=== PATIENT | female | born 1955 | race Caucasian/White ===

== ENCOUNTER 2019-06-10 08:47 | Outpatient (CLI) | payer MEDICARE, OTHER ==
[2019-06-10] MEDS ORDERED: ISOVUE-370 76%-LOCM 1 ML ONE (10:48)
--- NOTE | 2019-06-10 12:23 | CT ---
CT OF THE ABDOMEN WITH IV AND ENTERIC CONTRAST: INDICATION: Constipation and bloating. CONTRAST: 70 cc of Isovue 370. COMPARISON: None. FINDINGS: There is a calcified granuloma in the right lower lobe. There is bibasilar subsegmental volume loss. The gallbladder is surgically absent. No focal hepatic lesion is evident. The spleen, pancreas, a nd adrenal glands are normal appearing. There is a 2.1 cm cyst involving the superior pole left kidney. There are other small hypodensities within both kidneys that are difficult to further characterize due to their size but statistically is likely reflective of cyst. There are moderate calcifications involving the abdominal aorta. No lymphadenopathy is evident. The re is a mild to moderate amount of retained stool within the colon. There is scattered degenerative and osteoarthritic change. There is postsurgical change within the upper abdomen consistent with a p rior hernia repair. IMPRESSION: 1. Moderate amount of retained stool within the colon. 2. Bilateral renal cysts. 3. Cholecystectomy. 4. Findings of prior granulomatous disease. POS: OFF
== END 2019-06-10 08:48 | disposition home or self-care (01) ==
LOC: BICCT 08:47
PROVIDERS: ATTEND Internal Medicine
DX: K59.00 Constipation, unspecified (principal); R10.84 Generalized abdominal pain; N28.1 Cyst of kidney, acquired; Z90.49 Acquired absence of other specified parts of digestive tract
CPT/HCPCS: 74160; Q9966

== ENCOUNTER 2019-06-18 09:01 | Outpatient (CLI) | payer MEDICARE, OTHER ==
--- NOTE | 2019-06-25 16:28 | MMO ---
Bilateral MAMMO Bilat Screen [facility]. CLINICAL HISTORY: Patient is 63 years old and is seen for screening. The patient has no family history of breast cancer. The patient has no personal history of cancer. VIEWS: The views performed were: bilateral craniocaudal with tomosynthesis; bilateral mediolateral oblique with tomosynthesis; and left mediolateral oblique. FILMS COMPARED: The present examination has been compared to prior imaging studies performed at [facility] on 12/19/2013 and 02/25/2015. This study has been interpreted with the assistance of computer-aided detection. MAMMOGRAM FINDINGS: The breasts are almost entirely fat. There are stable benign appearing calcifications seen in both breasts. There are no suspicious masses, suspicious calcifications, or new areas of architectural distortion. IMPRESSION: THERE IS NO MAMMOGRAPHIC EVIDENCE OF MALIGNANCY. A ROUTINE FOLLOW-UP MAMMOGRAM IN 1 YEAR IS RECOMMENDED. THE RESULTS OF THIS EXAM WERE SENT TO THE PATIENT. ACR BI-RADS Category 2 - Benign finding MAMMOGRAPHY NOTE: 1. A negative mammogram report should not delay a biopsy if a dominant of clinically suspicious mass is present. 2. Approximately 10% to 15% of breast cancers are not detected by mammography. 3. Adenosis and dense breasts may obscure an underlying neoplasm. Reported by: ALEENA NORTH MD Electonically Signed: [id number]
== END 2019-06-18 09:02 | disposition home or self-care (01) ==
LOC: BICMAMMO 09:01
PROVIDERS: ATTEND Family Medicine
DX: Z12.31 Encounter for screening mammogram for malignant neoplasm of breast (principal)
CPT/HCPCS: 77063; 77067

== ENCOUNTER 2019-06-21 08:15 | Outpatient (CLI) | payer MEDICARE, MEDICAID ==
[2019-06-21] MEDS ORDERED: GASTROGRAFIN 30 ML BOT ONE (12:08)
--- NOTE | 2019-06-21 13:01 | RAD ---
EXAM: Small bowel exam: Patient was given barium orally. Sequential images of abdomen obtained. Spot images of the terminal i leum obtained. INDICATIONS: Abdominal pain. Constipation. COMPARISON: None. FINDINGS: [place] [employer] film shows increased small bowel gas with mild small bowel distention which appears n onspecific. After contrast administration orally, 15 minute film shows opacification of the proximal jejunum. Fol d pattern appears normal. Ileal loops are opacified at 45 minutes and show mild nonspecific distention. Fold pattern appears normal. Distal ileum is opacified at 2 hours. Contrast reaches the c olon by 2 1/2 hours. Terminal ileum appears unremarkable. IMPRESSION: Nonspecific small bowel distention. Small bowel fold pattern appears normal. Transit time is 2 to 2 1/2 hours.
== END 2019-06-21 08:16 | disposition home or self-care (01) ==
LOC: RAD 08:15
PROVIDERS: ATTEND Internal Medicine
DX: K59.09 Other constipation (principal); R10.84 Generalized abdominal pain; K63.89 Other specified diseases of intestine
CPT/HCPCS: 74250; Q9963

== ENCOUNTER 2019-07-15 09:32 | Outpatient (CLI) | payer MEDICARE, MEDICAID ==
--- NOTE | 2019-07-15 10:35 | RAD ---
Exam: 1 view abdomen HISTORY: Colonic motility study FINDINGS: There are air-filled mildly prominent loops of small bowel. Scattered fecal material in a n ondistended, nondilated colon. Suture chain in the epigastric region. Multiple Sitzmarks markers are noted and appear to be clumped within the stomach. IMPRESSION: Multiple Sitzmarks markers clumped in the stomach.
== END 2019-07-15 09:33 | disposition home or self-care (01) ==
LOC: RAD 09:32
PROVIDERS: ATTEND Internal Medicine
DX: K59.09 Other constipation (principal)
CPT/HCPCS: 74018

== ENCOUNTER 2019-07-17 10:30 | Outpatient (CLI) | payer MEDICARE, MEDICAID ==
--- NOTE | 2019-07-17 12:09 | RAD ---
SUPINE ABDOMEN: Date: 07/17/19 INDICATION: Colonic motility study. Sitz marker examination. Day 3. Comparison made to exam of 07/15/19. At that time, sitz markers were all grouped together in the epig astric region, presumably within the stomach. FINDINGS/IMPRESSION: There is diffuse gaseous distention of the small bowel today. Scattered gas is also seen in the colon . There are 10 sits markers which are located in the left lower quadrant region and these could reside in the left colon. There are 3 sitz markers that overlie the upper pelvis. These could reside in eith er small bowel or sigmoid colon. POS: [facility]
== END 2019-07-17 10:31 | disposition home or self-care (01) ==
LOC: RAD 10:30
PROVIDERS: ATTEND Internal Medicine
DX: K59.09 Other constipation (principal); R14.0 Abdominal distension (gaseous)
CPT/HCPCS: 74018

== ENCOUNTER 2020-02-11 20:55 | Emergency (ER) | payer MEDICARE, OTHER ==
[2020-02-11 21:37] LABS: Bilirubin Negative (Negative); Blood, Urine 2+ (Negative); Glucose, Urine (Dipstick) Normal (Negative); Leukocyte 250 Leu/uL (Negative); Nitrite Negative (Negative); Protein, Urine (Dipstick) 20 mg/dL (Neg-Trace); RBC/HPF Greater than 50 HPF (0-3); Squamous Epithelial None Seen HPF (0-3); Urobilinogen Normal mg/dL (Less than 2)
[2020-02-11 21:44] LABS: Bacteria/HPF 1+ HPF (None Seen)
[2020-02-11 21:45] LABS: Clarity Hazy (Clear)
== END 2020-02-11 22:32 | disposition home or self-care (01) ==
LOC: ERS 20:55
DX: N30.01 Acute cystitis with hematuria (principal); J44.9 Chronic obstructive pulmonary disease, unspecified; K21.9 Gastro-esophageal reflux disease without esophagitis; E03.9 Hypothyroidism, unspecified; E78.5 Hyperlipidemia, unspecified; E11.22 Type 2 diabetes mellitus with diabetic chronic kidney disease; N18.3 Chronic kidney disease, stage 3 (moderate); F41.9 Anxiety disorder, unspecified; F32.9 Major depressive disorder, single episode, unspecified; F17.210 Nicotine dependence, cigarettes, uncomplicated; Z95.0 Presence of cardiac pacemaker
CPT/HCPCS: 81003; 81015; 99284

== ENCOUNTER 2020-05-28 12:49 | Outpatient (CLI) | payer MEDICARE, OTHER ==
--- NOTE | 2020-05-28 13:38 | RAD ---
2 view chest: [05/28/2020] Comparison:08/05/2017 HISTORY: Shortness of breath FINDINGS: Stable dual lead transvenous pacing device. Heart and mediastinal contours are stable. No p neumothorax, pleural fluid, focal consolidation, or alveolar edema. Multilevel mid thoracic spine disc space narrowing and anterior osteophyte formation. IMPRESSION: No acute findings-stable appearance of the chest.
== END 2020-05-28 12:50 | disposition home or self-care (01) ==
LOC: BICRAD 12:49
PROVIDERS: ATTEND Internal Medicine Critical Care Medicine
DX: R06.00 Dyspnea, unspecified (principal)
CPT/HCPCS: 71046

== ENCOUNTER 2020-06-22 07:49 | Outpatient (CLI) | payer MEDICARE, OTHER ==
--- NOTE | 2020-06-22 08:24 | MMO ---
Bilateral MAMMO Bilat Screen [facility]. CLINICAL HISTORY: Patient is 64 years old and is seen for screening. The patient has no family history of breast cancer. The patient has no personal history of cancer. The patient has a history of Breast reduction in 1989. VIEWS: The views performed were: bilateral craniocaudal with tomosynthesis and bilateral mediolateral oblique with tomosynthesis. FILMS COMPARED: The present examination has been compared to prior imaging studies performed at [facility] on 06/18/2019, and at [facility] on 12/19/2013 and 02/25/2015. This study has been interpreted with the assistance of computer-aided detection. MAMMOGRAM FINDINGS: The breasts are almost entirely fat. Benign calcifications are noted bilaterally. There are no suspicious masses, suspicious calcifications, or new areas of architectural distortion. IMPRESSION: THERE IS NO MAMMOGRAPHIC EVIDENCE OF MALIGNANCY. A ROUTINE FOLLOW-UP MAMMOGRAM IN 1 YEAR IS RECOMMENDED. THE RESULTS OF THIS EXAM WERE SENT TO THE PATIENT. ACR BI-RADS Category 2 - Benign finding MAMMOGRAPHY NOTE: 1. A negative mammogram report should not delay a biopsy if a dominant of clinically suspicious mass is present. 2. Approximately 10% to 15% of breast cancers are not detected by mammography. 3. Adenosis and dense breasts may obscure an underlying neoplasm. Reported by: CONNIE CONN MD Electonically Signed: [id number]
== END 2020-06-22 07:50 | disposition home or self-care (01) ==
LOC: BICMAMMO 07:49
PROVIDERS: ATTEND Family Medicine
DX: Z12.31 Encounter for screening mammogram for malignant neoplasm of breast (principal); Z98.82 Breast implant status
CPT/HCPCS: 77063; 77067

== ENCOUNTER 2020-07-05 12:04 | Inpatient (IN) | payer MEDICARE, OTHER ==
[2020-07-05] MEDS ORDERED: HumaLOG 300 UNITS/3 ML VIAL SC PRN (13:48)
[2020-07-05] MEDS ORDERED: Dextrose 5% in Water 1,000 ML IV PRN (13:48)
[2020-07-05] MEDS ORDERED: Dextrose 50% Abboject 50 ML SYRINGE SLOW IVP PRN (13:48)
[2020-07-05] MEDS ORDERED: hydrALAZINE 20 MG/ML VIAL SLOW IVP PRN (14:07)
[2020-07-05 15:48] VITALS: BMI 34.7
[2020-07-05] MEDS: Sodium Chloride 0.9% 1,000 ML IV SCH (16:34)
[2020-07-05] MEDS ORDERED: CODEINE PO PRN (17:33)
[2020-07-05] MEDS ORDERED: ACETAMINOPHEN PO PRN (17:33)
--- NOTE | 2020-07-05 20:18 | HP ---
CHIEF COMPLAINT: The patient was transferred to our ER for suspected CVA. HISTORY OF PRESENT ILLNESS: The patient is a 64-year-old female with past medical history of diabetes mellitus type 2, hypertension, hyperlipidemia, hypothyroidism, GERD, and COPD, who was in her usual state of health until last night around 9:00 p.m. when she started experiencing some weakness and tremors in her arms. The patient was unable to hold her arms in the air. Her speech has also started to change. By this morning, the patient was unable to express her thoughts clearly. She was sent to [facility] and was transferred to our facility for further evaluation. At this time, the patient has a dense expressive aphasia and word-finding difficulty. She is able to move all of her extremities, however, her upper extremities appear to be weaker than her lower extremities. No family member available at bedside to answer questions. Details of the history were obtained from some communication with the patient in addition to medical records. REVIEW OF SYSTEMS: Negative except as noted in HPI. PAST MEDICAL HISTORY: As noted above. PAST SURGICAL HISTORY: Includes cholecystectomy, gastric bypass, hysterectomy, shoulder, and knee surgeries. PSYCHIATRIC HISTORY: Bipolar, depression, PTSD. SOCIAL HISTORY: The patient is a former smoker. She denies alcohol or illicit drug use. FAMILY HISTORY: Noncontributory to the current presentation. ALLERGIES: THE PATIENT IS ALLERGIC TO MORPHINE. PHYSICAL EXAMINATION: GENERAL: The patient is alert. Her orientation cannot be really accurately assessed because of her aphasia. NEUROLOGIC: Showing normal cranial nerves 2 through 12 and 3 to 4/5 weakness in bilateral upper extremities. Lower extremities are intact motor and sensory evans. NECK: Supple. CHEST: Clear to auscultation bilaterally. CARDIOVASCULAR: Normal S1 and S2. Regular rate and rhythm. No murmurs, rubs, or gallops. ABDOMEN: Soft, nontender, nondistended. Bowel sounds are audible. IMAGING STUDIES: CT scan of the head revealed lacunar infarct of indeterminate age involving the posterior limb of the internal capsule on the left side. No evidence of acute cortical infarction or hemorrhage. CT angiogram of the head and neck did not reveal any focal stenosis in the intra and extracranial vasculature. It did show some pulmonary nodules in the right upper lobe. ASSESSMENT: 1. Acute cerebrovascular accident. 2. Right upper lobe nodules. 3. Hyperlipidemia. 4. Diabetes mellitus type 2. 5. Hypothyroidism. 6. Chronic obstructive pulmonary disease. 7. Gastroesophageal reflux disease. PLAN: The patient will be admitted to the stroke unit. She will be kept n.p.o. until cleared by Speech Therapy. Neuro check q.4 hours. Aspirin 325 mg orally daily and atorvastatin 40 mg orally nightly. Her NIH Stroke Scale is 8, so dual antiplatelet therapy will not be initiated at this time. The patient was not given tPA as her stroke was yesterday. We will liberate blood pressure control and treat only if systolic blood pressure greater than 220 or diastolic greater than 120. Check hemoglobin A1c and lipid profile. CTA of the head and neck was reviewed. Check echocardiogram. MRI of the brain will not be performed at this time as the patient has a pacemaker until the compatibility is known. We will check CT scan of the chest with contrast to further evaluate her pulmonary nodules. PT and OT evaluation were ordered. Neurology and stroke team consult. Job ID: [id number]
[2020-07-05] MEDS: traZODone HCl 50 MG TAB PO SCH (21:13)
[2020-07-05] MEDS: clonazePAM 0.5 MG TAB PO SCH (21:16)
[2020-07-05] MEDS: Gabapentin 300 MG CAP PO SCH (21:16)
[2020-07-05] MEDS: Atorvastatin Calcium 40 MG TAB PO SCH (21:16)
[2020-07-05] MEDS: Prazosin HCl 1 MG CAP PO SCH (21:21)
[2020-07-05] MEDS: rOPINIRole HCl 2 MG TAB PO SCH (21:21)
[2020-07-05] MEDS ORDERED: Acetaminophen/Codeine 30-300mg Tablet PO SCH (21:30)
[2020-07-05] MEDS ORDERED: Mirtazapine 30 MG TAB PO SCH (22:00)
[2020-07-06] MEDS: Sodium Chloride 0.9% 1,000 ML IV SCH (05:29)
[2020-07-06] MEDS: Levothyroxine Sodium 88 MCG TAB PO SCH (05:31)
[2020-07-06] MEDS ORDERED: Acetaminophen 325 MG TAB PO PRN (08:38)
[2020-07-06] MEDS ORDERED: Linaclotide [Linzess] 290 MCG Capsule PO SCH (09:00)
[2020-07-06] MEDS ORDERED: FLU VACC QS2020-21(65YR UP)/PF 240 MCG/0.7 ML SYRINGE IM ONE (09:00)
[2020-07-06] MEDS ORDERED: Iopamidol-370 76% 500 ML 1 ML ONE (09:04)
[2020-07-06] MEDS ORDERED: Insulin Regular 300 UNITS/3 ML VIAL SC PRN (09:10)
[2020-07-06] MEDS: lamoTRIgine 100 MG TAB PO SCH (09:11)
[2020-07-06] MEDS ORDERED: HumaLOG 300 UNITS/3 ML VIAL SC PRN (09:11)
[2020-07-06] MEDS: Gabapentin 300 MG CAP PO SCH ×3 (09:12→21:53)
[2020-07-06] MEDS: Aspirin 325 mg Enteric Coated Tablet PO SCH (09:12)
[2020-07-06] MEDS: clonazePAM 0.5 MG TAB PO SCH ×2 (09:12→21:53)
[2020-07-06] MEDS: Enoxaparin Sodium 40 MG/0.4 ML SYRINGE SC SCH (09:12)
--- NOTE | 2020-07-06 09:23 | PDOC.HOSPP ---
- Subjective Encounter Date: 07/06/20 Encounter Time: : Subjective: Patient seen and examined. No new complaints. No overnight events. Reports still having difficulties speaking and both of her arms are still weak. Denies any new focal weakness. Reports swallowing her food fine. Denies any chest pain or SOB. Denies being a diabetic. Reports recent surgery for suprapubic catheter by Dr. Gordon 5 months ago, had 1 UTI since insertion of catheter. Denies any purulent discharge or abdominal pain, no fevers. - Objective Vital Signs & Weight: Vital Signs (12 hours) Temp Pulse Resp BP Pulse Ox 07/06/20 08:00 97.6 F 64 16 166/81 H 91 L 07/06/20 04:00 97.3 F L 66 14 157/73 H 92 L 07/05/20 23:52 98.2 F 77 16 141/72 H 93 L Weight Weight 196 lb I&O: 07/05/20 07/06/20 07/07/20 06:59 06:59 06:59 Intake Total 1125 Output Total 2710 Balance -1585 Hospitalist ROS - Review of Systems Constitutional: denies: fever, chills Respiratory: denies: cough, shortness of breath, hemoptysis Cardiovascular: denies: chest pain, palpitations, edema Gastrointestinal: denies: nausea, vomiting, abdominal pain, diarrhea Genitourinary: denies: dysuria, hematuria Neurological: reports: weakness (BUE), change in speech (expressive aphasia). denies: confusion All other systems reviewed; all pertinent +/- noted in HPI/Subj - Medication Medications: Active Medications Generic Name Dose Route Start Last Admin Trade Name Yomaira PRN Reason Stop Dose Admin Aspirin 325 mg 07/06/20 09:00 07/06/20 09:12 Aspirin 325 Mg Enteric Coated Tablet PO 325 mg DAILY GAYLE Administration Atorvastatin Calcium 40 mg 07/05/20 21:00 07/05/20 21:16 Atorvastatin Calcium 40 Mg Tab PO 40 mg HS GAYLE Administration Clonazepam 0.5 mg 07/05/20 21:00 07/06/20 09:12 Clonazepam 0.5 Mg Tab PO 0.5 mg BID GAYLE Administration Enoxaparin Sodium 40 mg 07/06/20 09:00 07/06/20 09:12 Enoxaparin Sodium 40 Mg/0.4 Ml Syringe SC 40 mg 0900 GAYLE Administration Gabapentin 600 mg 07/05/20 21:00 07/06/20 09:12 Gabapentin 300 Mg Cap PO 600 mg BID GAYLE Administration Sodium Chloride 1,000 mls @ 75 mls/hr 07/05/20 14:15 07/06/20 05:29 Normal Saline 0.9% IV 1,000 mls .[id number] GAYLE Administration Lamotrigine 300 mg 07/06/20 09:00 07/06/20 09:11 Lamotrigine 100 Mg Tab PO 300 mg QAM GAYLE Administration Levothyroxine Sodium 88 mcg 07/06/20 06:00 07/06/20 05:31 Levothyroxine Sodium 88 Mcg Tab PO 88 mcg 0600 GAYLE Administration Prazosin HCl 3 mg 07/05/20 21:00 07/05/20 21:21 Prazosin Hcl 1 Mg Cap PO 3 mg HS GAYLE Administration Ropinirole HCl 2 mg 07/05/20 21:00 07/05/20 21:21 Ropinirole Hcl 2 Mg Tab PO 2 mg HS GAYLE Administration Trazodone HCl 100 mg 07/05/20 21:00 07/05/20 21:13 Trazodone Hcl 50 Mg Tab PO Not Given HS GAYLE Ziprasidone 80 mg 07/05/20 21:00 07/05/20 21:21 Ziprasidone Hcl 80 Mg Cap PO 80 mg BID GAYLE Administration - Exam General Appearance: NAD, awake alert Eye: PERRL, anicteric sclera ENT: normocephalic atraumatic Neck: supple, symmetric, no JVD Heart: RRR, no murmur, no gallops, no rubs, normal peripheral pulses Respiratory: CTAB, no wheezes, no rales, no ronchi, normal chest expansion, no tachypnea Gastrointestinal: soft, non-tender, normal bowel sounds, no bruit, no guarding, no rigidity Gastrointestinal - other findings: suprapubic catheter in place Extremities: no cyanosis, no edema Skin: no rashes Neurological - other findings: BUE weakness, drift: expressive aphasia Psychiatric: normal affect Hosp A/P (1) CVA (cerebral vascular accident) Code(s): I63.9 - CEREBRAL INFARCTION, UNSPECIFIED Status: Acute (2) UTI (urinary tract infection) Status: Acute (3) Right upper lobe pulmonary nodule Code(s): R91.1 - SOLITARY PULMONARY NODULE Status: Acute (4) HTN (hypertension) Code(s): I10 - ESSENTIAL (PRIMARY) HYPERTENSION Status: Chronic (5) HLD (hyperlipidemia) Code(s): E78.5 - HYPERLIPIDEMIA, UNSPECIFIED Status: Chronic (6) COPD (chronic obstructive pulmonary disease) Status: Chronic (7) Hypothyroidism Code(s): E03.9 - HYPOTHYROIDISM, UNSPECIFIED Status: Chronic - Plan #CVA CT/CTA + subacute left internal capsule. unable to perform MRI d/t PM Consult Neurology, stroke team Continue ASA and statin #UTI Hx suprapubic catheter UA +nitrites and leukocytes ordered CX Started rocephin #Right Upper lobe lung nodules found on CTA incidental finding Recommended CT chest - reading/interpretation pending. Recommendation follow up chest CT without contrast 6 months. #HTN BP slightly elevated. stopping fluids Permissive hypertension #HLD continue statin 06/22 FLP results #COPD no respiratory distress Add prn nebs #Hypothyroidism TSH 06/22 - WNL Continue home dose levothyroxine Discussed case with Dr. Jarrell.
--- NOTE | 2020-07-06 10:37 | CT ---
CT CHEST WITH CONTRAST: INDICATION: Lung nodules given as reason for exam. COMPARISON: There are no comparison studies. FINDINGS: The lungs appear well aerated. There is no evidence of infiltrate or effusion. Mild bibasilar atele ctasis. Mild interstitial thickening bilaterally which appears chronic. In the right lung there are numerous small nodular densities. There are tiny nodules measuring in th e 2-3 mm range posteriorly in the right apical region seen on axial image 12. A subtle nodule in the right upper lobe on axial image 21 measures 7 mm in the coronal plane. There is another density on axial image 20 measuring 7 mm in the coronal plane. A subtle nodule in the posterior right mid lung probably superior segment right lower lobe seen on im age 23 axial measures 6-7 mm. Calcified nodule measuring 3 mm in the right lower lobe on image 43. In the left lung, a solid nodule is seen at the peripheral left upper lobe on image 12 abutting the p leural surface measuring approximately 5 mm. Mediastinum shows nonspecific lymph nodes. There is a paratracheal lymph node measuring up to 1.7 cm . Images through the upper abdomen unremarkable. A cyst from the superior left kidney is stable from p rior CT. There are other tiny nodular densities seen in both lungs which measure in the 2-3 mm range. Osseous structures unremarkable with degenerative spine change. IMPRESSION: 1. Numerous bilateral pulmonary nodules as described above. The larger ones are designated. Michael us other tiny nodular opacities are seen measuring in the 2-3 mm range. At least one of these nodule s is calcified in the right lower lobe. 2. There are chronic lung parenchymal changes with interstitial thickening and mild stranding in the posterior lung bases. Recommend CT chest without contrast in 6 months to assess stability. POS: [facility]
[2020-07-06 10:45] LABS: Cardiac Risk 3.4 (Less than 4.5)
[2020-07-06 11:09] LABS: Hemoglobin A1c 5.2 % (4.0-6.0)
--- NOTE | 2020-07-06 12:15 | CON ---
NEUROLOGY CONSULTATION DATE OF CONSULTATION: 07/06/2020 REASON FOR CONSULTATION: Rule out CVA. HISTORY OF PRESENT ILLNESS: Ms. Charles is a 64-year-old female with medical history significant for hypertension, hyperlipidemia, hypothyroidism, GERD, COPD, and diabetes mellitus, who was in her usual health until 07/05/2020 around 9:00 p.m. when she has experienced weakness and tremors in her arms and she was unable to hold her arms . She also felt weak in her lower extremities. She also has word-finding difficulties, so she was sent to the [facility]. At that time, she was found to have expressive aphasia and word-finding difficulty, however, she was able to move all her extremities, so she was transferred to [facility] for further evaluation. REVIEW OF SYSTEMS: Constitutional: denies: fever, chills Respiratory: denies: cough, shortness of breath, hemoptysis Cardiovascular: denies: chest pain, palpitations, edema Gastrointestinal: denies: nausea, vomiting, abdominal pain, diarrhea Genitourinary: denies: dysuria, hematuria Neurological: reports: weakness (BUE), change in speech (expressive aphasia). denies: confusion All other systems reviewed; all pertinent +/- noted in HPI/Subj PAST MEDICAL HISTORY: Diabetes mellitus, hypertension, hyperlipidemia, hypothyroidism, GERD, COPD. PAST SURGICAL HISTORY: Cholecystectomy, gastric bypass surgery, hysterectomy, shoulder and knee surgeries. PAST PSYCHIATRIC HISTORY: PTSD, depression, bipolar. SOCIAL HISTORY: The patient is a former smoker. She denies alcohol or illegal drug use. FAMILY HISTORY: Noncontributory. ALLERGIES: THE PATIENT IS ALLERGIC TO MORPHINE. Vital Signs & Weight: Vital Signs (12 hours) Temp Pulse Resp BP Pulse Ox 07/06/20 08:00 97.6 F 64 16 166/81 H 91 L 07/06/20 04:00 97.3 F L 66 14 157/73 H 92 L 07/05/20 23:52 98.2 F 77 16 141/72 H 93 L Weight Weight 196 lb I&O: 07/05/20 07/06/20 07/07/20 06:59 06:59 06:59 Intake Total 1125 Output Total 2710 Balance -1585 Active Medications Generic Name Dose Route Start Last Admin Trade Name Freq PRN Reason Stop Dose Admin Aspirin 325 mg 07/06/20 09:00 07/06/20 09:12 Aspirin 325 Mg Enteric Coated Tablet PO 325 mg DAILY GAYLE Administration Atorvastatin Calcium 40 mg 07/05/20 21:00 07/05/20 21:16 Atorvastatin Calcium 40 Mg Tab PO 40 mg HS GAYLE Administration Clonazepam 0.5 mg 07/05/20 21:00 07/06/20 09:12 Clonazepam 0.5 Mg Tab PO 0.5 mg BID GAYLE Administration Enoxaparin Sodium 40 mg 07/06/20 09:00 07/06/20 09:12 Enoxaparin Sodium 40 Mg/0.4 Ml Syringe SC 40 mg 0900 GAYLE Administration Gabapentin 600 mg 07/05/20 21:00 07/06/20 09:12 Gabapentin 300 Mg Cap PO 600 mg BID GAYLE Administration Sodium Chloride 1,000 mls @ 75 mls/hr 07/05/20 14:15 07/06/20 05:29 Normal Saline 0.9% IV 1,000 mls .[id number] GAYLE Administration Lamotrigine 300 mg 07/06/20 09:00 07/06/20 09:11 Lamotrigine 100 Mg Tab PO 300 mg QAM GAYLE Administration Levothyroxine Sodium 88 mcg 07/06/20 06:00 07/06/20 05:31 Levothyroxine Sodium 88 Mcg Tab PO 88 mcg 0600 GAYLE Administration Prazosin HCl 3 mg 07/05/20 21:00 07/05/20 21:21 Prazosin Hcl 1 Mg Cap PO 3 mg HS GAYLE Administration Ropinirole HCl 2 mg 07/05/20 21:00 07/05/20 21:21 Ropinirole Hcl 2 Mg Tab PO 2 mg HS GAYLE Administration Trazodone HCl 100 mg 07/05/20 21:00 07/05/20 21:13 Trazodone Hcl 50 Mg Tab PO Not Given HS GAYLE Ziprasidone 80 mg 07/05/20 21:00 07/05/20 21:21 Ziprasidone Hcl 80 Mg Cap PO 80 mg BID GAYLE Administration PHYSICAL EXAMINATION: General Appearance: NAD, awake alert Eye: PERRL, anicteric sclera ENT: normocephalic atraumatic Neck: supple, symmetric, no JVD Heart: RRR, no murmur, no gallops, no rubs, normal peripheral pulses Respiratory: CTAB, no wheezes, no rales, no ronchi, normal chest expansion, no tachypnea Gastrointestinal: soft, non-tender, normal bowel sounds, no bruit, no guarding, no rigidity Gastrointestinal - other findings: suprapubic catheter in place Extremities: no cyanosis, no edema Skin: no rashes Neurological - The patient is alert and oriented to person and place. Cranial nerves 2 through 12 intact. Motor; muscle, tone, and bulk are normal. Moving all 4 extremities equally and symmetrically. Generalized weakness 4/5 bilaterally. She is unable to hold her upper extremities for a long time, but able to lift it herself. Cerebellar, unable to perform secondary to weakness. Gait deferred due to patient's safety reasons. Sensory, withdraws to nailbed pressure bilaterally DATA REVIEWED: Data reviewed. I reviewed the head CT which showed lacunar infarct of indeterminate age involving the posterior limb of the internal capsule of the left side. No evidence of acute cortical infarction or hemorrhage. CT angiogram of the head and neck did not reveal any significant stenosis. ASSESSMENT AND PLAN: (1) CVA (cerebral vascular accident) Code(s): I63.9 - CEREBRAL INFARCTION, UNSPECIFIED Status: Acute (2) UTI (urinary tract infection) Status: Acute (3) Right upper lobe pulmonary nodule Code(s): R91.1 - SOLITARY PULMONARY NODULE Status: Acute (4) HTN (hypertension) Code(s): I10 - ESSENTIAL (PRIMARY) HYPERTENSION Status: Chronic (5) HLD (hyperlipidemia) Code(s): E78.5 - HYPERLIPIDEMIA, UNSPECIFIED Status: Chronic (6) COPD (chronic obstructive pulmonary disease) Status: Chronic (7) Hypothyroidism Code(s): E03.9 - HYPOTHYROIDISM, UNSPECIFIED Status: Chronic Ms. Lory Phan is a 64-year-old female with multiple comorbidities, presented with acute-onset weakness and expressive aphasia, which seems to be improved since admission. Consider MRI of the brain to rule out acute intracranial process. If MRI brain is incompatible, then consider a head CT 48 hours after symptom onset to confirm CVA. CT of the head and neck did not reveal any hemodynamically significant stenosis. EEG to rule out cortical irritability. Consider 2D echo to evaluate for left ventricular ejection fraction and telemetry to rule out arrhythmias, neuro checks every 4 hours. Continue aspirin and high-intensity statin for secondary stroke prevention. Permissive control of blood pressure at this time. Strict control of blood glucose. PT/OT/Speech. DVT prophylaxis. Continue medical management per primary team. We will continue to follow up. Plan discussed with the patient and during Stroke rounds. Job ID: [id number] AUTUMN
[2020-07-06] MEDS: cefTRIAXone\\ROCEPHIN 1 GM in Sodium Chloride 0.9% 100 ML IVPB SCH (12:29)
--- NOTE | 2020-07-06 12:43 | PDOC.EVN ---
Event Note - Event Note Event Note: Nursing called, patient reporting chest pain. VSS. 12 lead EKG no changes from admission. On ASA. Will check troponin.
[2020-07-06] MEDS: Acetaminophen/Codeine 30-300mg Tablet PO PRN ×2 (13:04→21:56)
[2020-07-06 13:39] LABS: Troponin I Less than 0.010 ng/mL (< 0.028)
[2020-07-06 14:02] LABS: SARS-CoV-2 MS2 Positive; SARS-CoV-2 N Gene Negative; SARS-CoV-2 S Gene Negative; SARS-CoV-2 by NAA Not Detected (NotDetected); SARS-CoV-2 orf1ab Negative
[2020-07-06] MEDS ORDERED: Meperidine HCl/PF 25 MG/ML VIAL ONE (14:03)
--- NOTE | 2020-07-06 14:41 | EEG ---
DATE OF SERVICE: 07/06/2020 ATTENDING PHYSICIAN: Shelley Peña MD This EEG was performed using 24-channel [employer] video digital EEG machine with 24- disk electrodes. This was an extended 2 hours 6 minutes of inpatient video EEG recording. Digital analysis of the EEG was done for spike and seizure detection which revealed no abnormalities. BACKGROUND: There is a nonsustained posterior background rhythm of 7-8 hertz. Minimal reactivity is seen with eye opening and closure. HYPERVENTILATION: Not performed. PHOTIC STIMULATION: No significant response seen with photic stimulation. SLEEP: Drowsiness and sleep were observed. EEG DIAGNOSIS: Occasional irregular theta activity is seen during the recording. CLINICAL INTERPRETATION: This EEG is consistent with mild generalized nonspecific cerebral dysfunction. Job ID: [id number] [facility]
--- NOTE | 2020-07-06 16:47 | RAD ---
EXAM: CHEST ONE VIEW HISTORY: Chest pain, history of COPD. COMPARISON: 12/19/2019 FINDINGS: Dual lead left subclavian cardiac pacemaking device is again noted in place. The cardiac silhouette i s magnified by projection. Pulmonary vasculature is within normal limits. The lungs are clear. Small pulmonary nodules were seen on a recent CT thorax which are not able to be delineated on this e xamination due to small size. Vascular calcifications are seen in the thoracic aorta. No other interval change. IMPRESSION: No acute cardiopulmonary process.
--- NOTE | 2020-07-06 18:11 | EKG ---
Test Reason : Blood Pressure : / mmHG Vent. Rate : 069 BPM Atrial Rate : 069 BPM P-R Int : 160 ms QRS Dur : 090 ms QT Int : 416 ms P-R-T Axes : 063 054 072 degrees QTc Int : 445 ms Normal sinus rhythm NS T-wave change When compared with ECG of 05-JUL-2020 13:17, (Unconfirmed) No significant change was found Confirmed by DR. Marika COX ([id number]) on 07/06/2020 6:11:02 PM Referred By: LELO Confirmed By:DR. Marika COX
[2020-07-06] MEDS: Mirtazapine 30 MG TAB PO SCH (21:53)
[2020-07-06] MEDS: traZODone HCl 50 MG TAB PO SCH (21:53)
[2020-07-06] MEDS: rOPINIRole HCl 2 MG TAB PO SCH (21:53)
[2020-07-06] MEDS: Atorvastatin Calcium 40 MG TAB PO SCH (21:53)
[2020-07-06] MEDS: Prazosin HCl 1 MG CAP PO SCH (21:54)
[2020-07-07 05:03] LABS: #Basophils 0.1 thou/uL (0.0-0.2); #Eosinphils 0.5 thou/uL (0.0-0.7); #Lymphocytes 2.5 thou/uL (1.20-3.40); #Monocytes 0.5 thou/uL (0.11-0.59); #Neutrophils 2.4 thou/uL (1.40-6.50); %Basophils 1.1 % (0.0-1.0); %Eosinophils 8.8 % (0.0-10.0); %Lymphocytes 42.4 % (21.0-51.0); %Monocytes 7.9 % (0.0-10.0); %Neutrophils 39.8 % (42.0-75.0); Hemoglobin 12.5 g/dL (12.0-16.0); Mean Corpuscular HGB CONC 32.8 g/dL (32.0-36.0); Mean Corpuscular Hemoglobin 30.4 pg (27.0-31.0); Mean Corpuscular Volume 92.7 fL (78.0-98.0); Mean Platelet Volume 8.6 fL (7.4-10.4); Platelet Count 198 thou/uL (130-400); RBC Distribution Width 13.5 % (11.5-14.5); Red Blood Cell (RBC) Count 4.13 mill/uL (4.20-5.40)
[2020-07-07 05:27] LABS: Anion Gap 13 mmol/L (10-20); BUN (Urea Nitrogen) 8 mg/dL (9.8-20.1); Calc. Creatinine Clearance 82 mL/min (70-130); Calcium 8.8 mg/dL (7.8-10.44); Carbon Dioxide 22 mmol/L (23-31); Chloride 111 mmol/L (98-107); Estimated GFR-MDRD 59; Glucose 84 mg/dL (80-115); Potassium 4.4 mmol/L (3.5-5.1); Sodium 142 mmol/L (136-145)
[2020-07-07] MEDS: Levothyroxine Sodium 88 MCG TAB PO SCH (06:24)
--- NOTE | 2020-07-07 08:17 | CT ---
CT BRAIN NONCONTRAST: DATE: 07/07/2020 HISTORY: 64 year old female with change in altered mental status COMPARISON: 07/05/2020 FINDINGS: There is no evidence of acute intra-axial or extra-axial hemorrhage. There is no midline shift or any other mass effect. There is no extra-axial fluid collection. There is no evidence of obstructive hydrocephalus. Calvarium is intact. Again noted is the thin subtle faint short hypodensity in the reg ion of the posterior limb of the left internal capsule. This could be a region of chronic ischemic white matter change or small lacunar infarction of indeterminate age. There has been no interval tobar ge. IMPRESSION: No compelling evidence of acute intracranial disease.
[2020-07-07] MEDS: Enoxaparin Sodium 40 MG/0.4 ML SYRINGE SC SCH (09:05)
[2020-07-07] MEDS: lamoTRIgine 100 MG TAB PO SCH (09:05)
[2020-07-07] MEDS: Gabapentin 300 MG CAP PO SCH ×3 (09:05→20:39)
[2020-07-07] MEDS: clonazePAM 0.5 MG TAB PO SCH ×2 (09:06→20:41)
[2020-07-07] MEDS: Aspirin 325 mg Enteric Coated Tablet PO SCH (09:06)
[2020-07-07] MEDS: Acetaminophen/Codeine 30-300mg Tablet PO PRN ×2 (09:09→20:39)
--- NOTE | 2020-07-07 09:28 | PDOC.HOSPP ---
- Subjective Encounter Date: 07/07/20 Encounter Time: 09:26 Subjective: Patient seen and examined. No new complaints. No overnight events. This morning was difficult to arouse per nursing, so repeat CT brain perfromed, negative for acute process. Patient reports feeling much better. Reports BUE strength back to baseline, she ambulated to bathroom with standby assist. Reports speech is improving, the words are coming out easier. She denies any chest pain, SOB or abdominal pain. Denies fever or chills. Tolerating diet well. - Objective Vital Signs & Weight: Vital Signs (12 hours) Temp Pulse Resp BP Pulse Ox 07/07/20 07:04 98.3 F 79 20 126/83 93 L 07/07/20 06:40 67 14 125/70 98 07/07/20 04:38 97.7 F 77 18 138/86 99 07/07/20 01:08 98 F 68 18 104/55 L 91 L Weight Admit Weight 196 lb Weight 196 lb I&O: 07/06/20 07/07/20 07/08/20 06:59 06:59 06:59 Intake Total 1125 1224 Output Total 2710 7350 Balance -6897 -5242 Result Diagrams: 07/07/20 04:48 07/07/20 04:48 Hospitalist ROS - Review of Systems Constitutional: denies: fever, chills Respiratory: denies: cough, shortness of breath Cardiovascular: denies: chest pain, palpitations Gastrointestinal: denies: nausea, vomiting, abdominal pain, diarrhea Genitourinary: denies: hematuria Neurological: reports: change in speech (still has some expressive aphasia). denies: weakness - Medication Medications: Active Medications Generic Name Dose Route Start Last Admin Trade Name Freq PRN Reason Stop Dose Admin Acetaminophen 650 mg 07/06/20 08:38 07/07/20 06:36 Acetaminophen 325 Mg Tab PO 650 mg Q4H PRN Administration Headache/Fever/Mild Pain (1-3) Acetaminophen/Codeine Phosphate 1 tab 07/06/20 08:42 07/07/20 09:09 Acetaminophen/Codeine 30-300mg Tablet PO 1 tab Q6H PRN Administration Pain Aspirin 325 mg 07/06/20 09:00 07/07/20 09:06 Aspirin 325 Mg Enteric Coated Tablet PO 325 mg DAILY GAYLE Administration Atorvastatin Calcium 40 mg 07/05/20 21:00 07/06/20 21:53 Atorvastatin Calcium 40 Mg Tab PO 40 mg HS GAYLE Administration Clonazepam 0.5 mg 07/05/20 21:00 07/07/20 09:06 Clonazepam 0.5 Mg Tab PO 0.5 mg BID GAYLE Administration Enoxaparin Sodium 40 mg 07/06/20 09:00 07/07/20 09:05 Enoxaparin Sodium 40 Mg/0.4 Ml Syringe SC 40 mg 0900 GAYLE Administration Gabapentin 300 mg 07/06/20 12:00 07/06/20 12:30 Gabapentin 300 Mg Cap PO 300 mg 1200 GAYLE Administration Gabapentin 600 mg 07/05/20 21:00 07/07/20 09:05 Gabapentin 300 Mg Cap PO 600 mg BID GAYLE Administration Ceftriaxone Sodium 1 gm/ 100 mls @ 200 mls/hr 07/06/20 11:00 07/06/20 12:29 Sodium Chloride IVPB 100 mls Q24HR GAYLE Administration Lamotrigine 300 mg 07/06/20 09:00 07/07/20 09:05 Lamotrigine 100 Mg Tab PO 300 mg QAM GAYLE Administration Levothyroxine Sodium 88 mcg 07/06/20 06:00 07/07/20 06:24 Levothyroxine Sodium 88 Mcg Tab PO 88 mcg 0600 GAYLE Administration Mirtazapine 45 mg 07/06/20 21:00 07/06/20 21:53 Mirtazapine 30 Mg Tab PO 45 mg HS GAYLE Administration Prazosin HCl 3 mg 07/05/20 21:00 07/06/20 21:54 Prazosin Hcl 1 Mg Cap PO 3 mg HS GAYLE Administration Ropinirole HCl 2 mg 07/05/20 21:00 07/06/20 21:53 Ropinirole Hcl 2 Mg Tab PO 2 mg HS GAYLE Administration Sodium Chloride 10 ml 07/05/20 13:51 07/06/20 21:57 Flush - Normal Saline 10 Ml Syringe IVF 10 ml PRN PRN Administration Saline Flush Trazodone HCl 100 mg 07/05/20 21:00 07/06/20 21:53 Trazodone Hcl 50 Mg Tab PO 100 mg HS GAYLE Administration Ziprasidone 80 mg 07/05/20 21:00 07/07/20 09:06 Ziprasidone Hcl 80 Mg Cap PO 80 mg BID GAYLE Administration - Exam General Appearance: NAD, awake alert Eye: PERRL, anicteric sclera ENT: normocephalic atraumatic Neck: supple, symmetric, no JVD Heart: RRR, no gallops, no rubs, normal peripheral pulses, II/IV Respiratory: CTAB, no wheezes, no rales, no ronchi, normal chest expansion, no tachypnea Gastrointestinal: soft, non-tender, normal bowel sounds, no guarding, no rigidity Gastrointestinal - other findings: suprapubic catheter in place Extremities: no cyanosis, no edema Neurological - other findings: BUE no drift, some expressive aphasia Psychiatric: normal affect, A&O x 3 Hosp A/P (1) CVA (cerebral vascular accident) Code(s): I63.9 - CEREBRAL INFARCTION, UNSPECIFIED Status: Acute (2) UTI (urinary tract infection) Status: Acute (3) Right upper lobe pulmonary nodule Code(s): R91.1 - SOLITARY PULMONARY NODULE Status: Acute (4) HTN (hypertension) Code(s): I10 - ESSENTIAL (PRIMARY) HYPERTENSION Status: Chronic (5) HLD (hyperlipidemia) Code(s): E78.5 - HYPERLIPIDEMIA, UNSPECIFIED Status: Chronic (6) COPD (chronic obstructive pulmonary disease) Status: Chronic (7) Hypothyroidism Code(s): E03.9 - HYPOTHYROIDISM, UNSPECIFIED Status: Chronic - Plan #CVA CT/CTA + subacute left internal capsule. unable to perform MRI d/t PM Consult Neurology, stroke team Continue ASA and statin PT/OT/CLINICAL PROJECT ASSISTANT recommendations for Rehab and possible RW. #UTI No abdominal pain, no Leukocytosis Hx suprapubic catheter UA +nitrites and leukocytes Continue rocephin If patient asymptomatic tomorrow, no leukocytosis, will d/c abx (likely colonization) Awaiting UA and UCX #Right Upper lobe lung nodules CTA head and neck - incidental finding Recommendation follow up chest CT without contrast 6 months. #HTN BP well controlled. Continue medication regimen. #HLD Taking statin 06/22 FLP results #COPD stable. Nebs prn. #Hypothyroidism TSH 06/22 - WNL Levothyroxine home dose. Discussed case with Dr. Jarrell.
[2020-07-07] MEDS: cefTRIAXone\\ROCEPHIN 1 GM in Sodium Chloride 0.9% 100 ML IVPB SCH (11:38)
[2020-07-07 12:24] LABS: Bacteria/HPF 3+ HPF (None Seen); Bilirubin Negative (Negative); Blood, Urine Trace (Negative); Clarity Clear (Clear); Glucose, Urine (Dipstick) Normal (Negative); Ketone, Urine Negative (Negative); Leukocyte 250 Leu/uL (Negative); Nitrite 2+ (Negative); Protein, Urine (Dipstick) Negative (Neg-Trace); RBC/HPF 0-3 HPF (0-3); Specific Gravity, Urine 1.005 (1.002-1.036); Squamous Epithelial 0-3 HPF (0-3); Urobilinogen Normal mg/dL (Less than 2)
[2020-07-07 12:29] LABS: Urine Culture Reflex Yes Yes
--- NOTE | 2020-07-07 12:32 | PDOC.NEUPN ---
- Subjective Encounter Date: 07/07/20 Subjective: Patient feels better today. She was able to lift both arms and according to her the weakness has resolved. She does complain of baseline weakness in the right upper extremity which is was an ongoing issue. Her speech deficits were also improved. Head CT repeat is negative for acute intracranial process. - Objective Vital Signs & Weight: Vital Signs (12 hours) Temp Pulse Resp BP Pulse Ox 07/07/20 11:49 97.9 F 63 21 H 146/64 H 94 L 07/07/20 07:04 98.3 F 79 20 126/83 93 L 07/07/20 06:40 67 14 125/70 98 07/07/20 04:38 97.7 F 77 18 138/86 99 07/07/20 01:08 98 F 68 18 104/55 L 91 L Weight Admit Weight 196 lb Weight 196 lb I&O: 07/06/20 07/07/20 07/08/20 06:59 06:59 06:59 Intake Total 1125 1224 Output Total 1454 3125 1120 [facility]1585 -2476 -1120 Result Diagrams: 07/07/20 04:48 07/07/20 04:48 Radiology Reviewed by me: Yes EKG Reviewed by me: Yes ROS - Review of Systems Constitutional: denies: fever, chills, sweats, weakness, malaise, other Eyes: denies: pain, vision change, conjunctivae inflammation, eyelid inflammation, redness, other ENT: denies: ear pain, ear discharge, nose pain, nose discharge, nose congest ion, mouth pain, mouth swelling, throat pain, throat swelling, other Respiratory: denies: cough, dry, shortness of breath, hemoptysis, SOB with excertion, pleuritic pain, sputum, wheezing, other Gastrointestinal: denies: nausea, vomiting, abdominal pain, diarrhea, constipation, melena, hematochezia, other Genitourinary: denies: dysuria, frequency, incontinence, hematuria, retention, other Musculoskeletal: denies: neck pain, shoulder pain, arm pain, back pain, hand pain, leg pain, foot pain, other Neurological: reports: weakness - Medication Medications: Active Medications Generic Name Dose Route Start Last Admin Trade Name Freq PRN Reason Stop Dose Admin Acetaminophen 650 mg 07/06/20 08:38 07/07/20 06:36 Acetaminophen 325 Mg Tab PO 650 mg Q4H PRN Administration Headache/Fever/Mild Pain (1-3) Acetaminophen/Codeine Phosphate 1 tab 07/06/20 08:42 07/07/20 09:09 Acetaminophen/Codeine 30-300mg Tablet PO 1 tab Q6H PRN Administration Pain Aspirin 325 mg 07/06/20 09:00 07/07/20 09:06 Aspirin 325 Mg Enteric Coated Tablet PO 325 mg DAILY GAYLE Administration Atorvastatin Calcium 40 mg 07/05/20 21:00 07/06/20 21:53 Atorvastatin Calcium 40 Mg Tab PO 40 mg HS GAYLE Administration Clonazepam 0.5 mg 07/05/20 21:00 07/07/20 09:06 Clonazepam 0.5 Mg Tab PO 0.5 mg BID GAYLE Administration Enoxaparin Sodium 40 mg 07/06/20 09:00 07/07/20 09:05 Enoxaparin Sodium 40 Mg/0.4 Ml Syringe SC 40 mg 0900 GAYLE Administration Gabapentin 300 mg 07/06/20 12:00 07/07/20 11:38 Gabapentin 300 Mg Cap PO 300 mg 1200 GAYLE Administration Gabapentin 600 mg 07/05/20 21:00 07/07/20 09:05 Gabapentin 300 Mg Cap PO 600 mg BID GAYLE Administration Ceftriaxone Sodium 1 gm/ 100 mls @ 200 mls/hr 07/06/20 11:00 07/07/20 11:38 Sodium Chloride IVPB 100 mls Q24HR GAYLE Administration Lamotrigine 300 mg 07/06/20 09:00 07/07/20 09:05 Lamotrigine 100 Mg Tab PO 300 mg QAM GAYLE Administration Levothyroxine Sodium 88 mcg 07/06/20 06:00 07/07/20 06:24 Levothyroxine Sodium 88 Mcg Tab PO 88 mcg 0600 GAYLE Administration Mirtazapine 45 mg 07/06/20 21:00 07/06/20 21:53 Mirtazapine 30 Mg Tab PO 45 mg HS GAYLE Administration Prazosin HCl 3 mg 07/05/20 21:00 07/06/20 21:54 Prazosin Hcl 1 Mg Cap PO 3 mg HS GAYLE Administration Ropinirole HCl 2 mg 07/05/20 21:00 07/06/20 21:53 Ropinirole Hcl 2 Mg Tab PO 2 mg HS GAYLE Administration Sodium Chloride 10 ml 07/05/20 13:51 07/06/20 21:57 Flush - Normal Saline 10 Ml Syringe IVF 10 ml PRN PRN Administration Saline Flush Trazodone HCl 100 mg 07/05/20 21:00 07/06/20 21:53 Trazodone Hcl 50 Mg Tab PO 100 mg HS GAYLE Administration Ziprasidone 80 mg 07/05/20 21:00 07/07/20 09:06 Ziprasidone Hcl 80 Mg Cap PO 80 mg BID GAYLE Administration - Exam General Appearance: awake alert Eye: PERRL ENT: normocephalic atraumatic Neck: supple, symmetric Respiratory: CTAB, no wheezes Cardiovascular: RRR, no murmur Gastrointestinal: soft, non-tender Extremities: no cyanosis Skin: normal turgor Neurological: no new deficit Musculoskeletal: normal tone, no muscle wasting PSYCH: normal affect, normal behavior, A&O x 3 Results - Labs Result Diagrams: 07/07/20 04:48 07/07/20 04:48 Lab results: WBC 6.0 thou/uL (4.8-10.8) 07/07/20 04:48 Hgb 12.5 g/dL (12.0-16.0) 07/07/20 04:48 Hct 38.3 % (36.0-47.0) 07/07/20 04:48 MCV 92.7 fL (78.0-98.0) 07/07/20 04:48 Plt Count 198 thou/uL (130-400) 07/07/20 04:48 Neutrophils % 39.8 % (42.0-75.0) L 07/07/20 04:48 ESR Westergren 23 mm/hr (Less than 30) 07/06/20 10:10 Sodium 142 mmol/L (136-145) 07/07/20 04:48 Potassium 4.4 mmol/L (3.5-5.1) 07/07/20 04:48 Chloride 111 mmol/L (98-107) H 07/07/20 04:48 Carbon Dioxide 22 mmol/L (23-31) L 07/07/20 04:48 BUN 8 mg/dL (9.8-20.1) L 07/07/20 04:48 Creatinine 0.95 mg/dL (0.6-1.1) 10/06/20 04:48 Glucose 84 mg/dL (80-115) 07/07/20 04:48 Calcium 8.8 mg/dL (7.8-10.44) 07/07/20 04:48 Troponin I Less than 0.010 ng/mL (< 0.028) 07/06/20 13:08 Urine Ketones Negative mg/dL (Negative) 07/07/20 11:35 Urine Blood Trace (Negative) A 07/07/20 11:35 Urine Nitrite 2+ (Negative) A 07/07/20 11:35 Ur Leukocyte Esterase 250 Shaun/uL (Negative) A 07/07/20 11:35 Urine RBC 0-3 HPF (0-3) 07/07/20 11:35 Urine WBC 4-6 HPF (0-3) A 07/07/20 11:35 Ur Squamous Epith Cells 0-3 HPF (0-3) 07/07/20 11:35 Urine Bacteria 3+ HPF (None Seen) A 07/07/20 11:35 - EKG Interpretation EKG: Normal sinus rhythm - Radiology Interpretation CT scan - head Status: image reviewed by me, report reviewed by me Additional Comment: Acute intracranial pathology PN A/P (1) TIA (transient ischemic attack) Code(s): G45.9 - TRANSIENT CEREBRAL ISCHEMIC ATTACK, UNSPECIFIED Status: Acute (2) Right upper lobe pulmonary nodule Code(s): R91.1 - SOLITARY PULMONARY NODULE Status: Acute (3) COPD (chronic obstructive pulmonary disease) Status: Chronic (4) GERD (gastroesophageal reflux disease) Code(s): K21.9 - GASTRO-ESOPHAGEAL REFLUX DISEASE WITHOUT ESOPHAGITIS Status: Chronic (5) HLD (hyperlipidemia) Code(s): E78.5 - HYPERLIPIDEMIA, UNSPECIFIED Status: Chronic (6) HTN (hypertension) Code(s): I10 - ESSENTIAL (PRIMARY) HYPERTENSION Status: Chronic (7) Hypothyroidism Code(s): E03.9 - HYPOTHYROIDISM, UNSPECIFIED Status: Chronic - Plan Daily Plan: PT/OT, speech therapy, DVT proph w/lovenox 64-year-old female presented to the emergency room with weakness and confusion. Repeat head CT did not reveal any acute intracranial pathology. Most likely TIA since symptoms were improved per patient. EEG reviewed and was negative for seizure activity. 2D echo showed ejection fraction 50 to 55%. No thrombus or PFO. Head CT reviewed and was negative for acute intracranial pathology. Neurochecks every 4 hours. Continue aspirin and high intensity statin for secondary stroke prevention. Strict control of blood pressure and blood glucose. Continue home medications. PT/OT/speech Continue medical management per primary team. Plan discussed in detail with the patient and during MDR rounds.
--- NOTE | 2020-07-07 12:50 | PDOC.EVN ---
Event Note - Event Note Event Note: The patient will require a rolling walker on discharge for weakness and gait instability.
[2020-07-07] MEDS: rOPINIRole HCl 2 MG TAB PO SCH (20:38)
[2020-07-07] MEDS: Atorvastatin Calcium 40 MG TAB PO SCH (20:40)
[2020-07-07] MEDS: Mirtazapine 30 MG TAB PO SCH (20:41)
[2020-07-07] MEDS: traZODone HCl 50 MG TAB PO SCH (20:41)
[2020-07-07] MEDS: Prazosin HCl 1 MG CAP PO SCH (20:42)
[2020-07-08 04:27] LABS: #Basophils 0.1 thou/uL (0.0-0.2); #Eosinphils 0.6 thou/uL (0.0-0.7); #Lymphocytes 2.5 thou/uL (1.20-3.40); #Monocytes 0.5 thou/uL (0.11-0.59); #Neutrophils 2.6 thou/uL (1.40-6.50); %Basophils 1.1 % (0.0-1.0); %Lymphocytes 40.2 % (21.0-51.0); %Monocytes 7.7 % (0.0-10.0); Hemoglobin 12.8 g/dL (12.0-16.0); Mean Corpuscular HGB CONC 32.8 g/dL (32.0-36.0); Mean Corpuscular Hemoglobin 30.3 pg (27.0-31.0); Mean Corpuscular Volume 92.2 fL (78.0-98.0); Platelet Count 188 thou/uL (130-400); RBC Distribution Width 13.4 % (11.5-14.5); Red Blood Cell (RBC) Count 4.24 mill/uL (4.20-5.40); White Blood Cell (WBC) Count 6.1 thou/uL (4.8-10.8)
[2020-07-08] MEDS: Levothyroxine Sodium 88 MCG TAB PO SCH (05:29)
[2020-07-08 05:38] LABS: Anion Gap 17 mmol/L (10-20); BUN (Urea Nitrogen) 9 mg/dL (9.8-20.1); Calc. Creatinine Clearance 78 mL/min (70-130); Calcium 8.7 mg/dL (7.8-10.44); Carbon Dioxide 19 mmol/L (23-31); Chloride 111 mmol/L (98-107); Estimated GFR-MDRD 55; Glucose 79 mg/dL (80-115); Potassium 4.6 mmol/L (3.5-5.1); Sodium 142 mmol/L (136-145)
[2020-07-08] MEDS: Acetaminophen/Codeine 30-300mg Tablet PO PRN (06:29)
[2020-07-08 07:51] VITALS: BP 128/72; TEMP 97.4
[2020-07-08] MEDS: Aspirin 325 mg Enteric Coated Tablet PO SCH (10:09)
[2020-07-08] MEDS: clonazePAM 0.5 MG TAB PO SCH (10:09)
[2020-07-08] MEDS: Gabapentin 300 MG CAP PO SCH ×2 (10:10→12:38)
[2020-07-08] MEDS: Enoxaparin Sodium 40 MG/0.4 ML SYRINGE SC SCH (10:10)
[2020-07-08] MEDS: lamoTRIgine 100 MG TAB PO SCH (10:10)
[2020-07-08] MEDS: cefTRIAXone\\ROCEPHIN 1 GM in Sodium Chloride 0.9% 100 ML IVPB SCH (12:00)
[2020-07-08 15:11] LABS: ANA Symphony (Qualitative) Negative (Negative); ANA Symphony (Quantitative) Less than 0.1 Ratio (< 0.7 Negative); dsDNA IgG Antibody 0.7 IU/mL (<10 Negative)
--- NOTE | 2020-07-09 01:01 | DIS ---
DATE OF ADMISSION: 07/05/2020 DATE OF DISCHARGE: 07/08/2020 DISCHARGE DIAGNOSES: 1. Cerebrovascular accident. 2. Right upper lobe pulmonary nodule. 3. Chronic obstructive pulmonary disease. 4. Urinary tract infection. 5. Gastroesophageal reflux disease. 6. Hyperlipidemia. 7. Hypertension. 8. Hypothyroidism. DISCHARGE MEDICATIONS: The patient will continue her home medications with the additions of followin. Aspirin 325 mg orally daily. 2. Atorvastatin 40 mg orally daily. 3. Bactrim Double Strength one tablet twice daily for 5 days. HISTORY OF PRESENT ILLNESS AND HOSPITAL COURSE: The patient is a 64-year-old female, with past medical history of diabetes mellitus, type 2; hypertension; hyperlipidemia; hypothyroidism; GERD; and COPD, who presented to the hospital with complaints of weakness and tremors in her arms, more to the right side than the left. She was evaluated in the ER and tPA was not given as the patient's NIH Stroke Scale was low and her presentation was beyond the time window. She was admitted to the hospital and CT scan of the brain without contrast in addition to CTA of head and neck were unremarkable. Echocardiogram did not show any intracardiac thrombi. We could not perform an MRI of the brain due to presence of pacemaker. The patient did have some weakness on the right side that did not improve, but otherwise her left-sided symptoms were resolved. EEG was performed and did not show any seizure activities. The patient was prescribed high-dose aspirin and atorvastatin for secondary prevention. She was noted to be weak with physical therapy. Outpatient Home Health with PT was arranged and a walker was prescribed. She did have some lower abdominal pain around the catheter site. Urine culture grew Enterobacter cloacae, which will be managed with Bactrim as above. Job ID: [id number]
== END 2020-07-08 12:38 | disposition home health service (06) | DRG 65 ==
LOC: ERS 12:04 → 2SE 13:38
PROVIDERS: ADMIT Internal Medicine; ATTEND Internal Medicine
DX: I63.9 Cerebral infarction, unspecified (principal); G81.91 Hemiplegia, unspecified affecting right dominant side; N39.0 Urinary tract infection, site not specified; E11.9 Type 2 diabetes mellitus without complications; E03.9 Hypothyroidism, unspecified; E78.00 Pure hypercholesterolemia, unspecified; J44.9 Chronic obstructive pulmonary disease, unspecified; K21.9 Gastro-esophageal reflux disease without esophagitis; F41.9 Anxiety disorder, unspecified; F31.9 Bipolar disorder, unspecified; R29.708 NIHSS score 8; R91.1 Solitary pulmonary nodule; I10 Essential (primary) hypertension; R40.2362 Coma scale, best motor response, obeys commands, at arrival to emergency department; R40.2142 Coma scale, eyes open, spontaneous, at arrival to emergency department; R40.2252 Coma scale, best verbal response, oriented, at arrival to emergency department; Z95.0 Presence of cardiac pacemaker; Z90.49 Acquired absence of other specified parts of digestive tract; Z90.710 Acquired absence of both cervix and uterus; Z87.891 Personal history of nicotine dependence; Z88.6 Allergy status to analgesic agent; Z88.8 Allergy status to other drugs, medicaments and biological substances; Z79.899 Other long term (current) drug therapy; Z20.828 Contact with and (suspected) exposure to other viral communicable diseases
CPT/HCPCS: 36415; 70450; 71045; 71260; 80048; 80061; 81001; 83036; 84484; 85025; 85652; 86038; 86225; 87077; 87086; 87186; 87635; 93005; 93010; 93306; 95712; 95816; 95819; J0696; J1650; J2175; J3490; Q9967; U0003

== ENCOUNTER 2020-08-09 12:54 | Inpatient (IN) | payer MEDICARE, OTHER ==
[2020-08-09 15:03] VITALS: BMI 35.6
--- NOTE | 2020-08-09 16:24 | PDOC.HHP ---
Hospitalist HPI - History of Present Illness Dysathria, right-sided weakness History of Present Illness: This is a 64-year-old female patient with a history of CVA, diabetes mellitus type 2, hypothyroidism, COPD and GERD who was transferred from [facility] on account of CVA with right-sided hemiparesis. At the time of my evaluation, patient had severe dysphagia and she was unable to communicate clearly. Of note she was recently admitted here on 07/05/2020 and discharged on 07/08/2020 on account of cerebrovascular accident with weakness and tremors more on the right side. Evaluation at the time with CT and CTA were negative. She was unable to have an MRI on account of her incompatible pacemaker. She was evaluated by neurology and discharged. She did not receive TPA. NIH score the time of discharge is noted to be 4. Today she presents again to [facility] on account of right facial palsy and right-sided paralysis. Patient was noted to be at her baseline at 8:30 AM this morning. Symptoms started with trouble speaking noted by family also had associated headaches with right-sided weakness. No abnormalities were found on CT scan of the head and CTA at [facility] sent here for further evaluation. At presentation her initial NIH score was 18. Hospitalist ROS - Review of Systems Constitutional: denies: fever, chills Respiratory: denies: cough, shortness of breath, hemoptysis Cardiovascular: denies: chest pain, palpitations, orthopnea Genitourinary: denies: dysuria, frequency, incontinence, hematuria Neurological: reports: weakness, change in speech. denies: seizures Hospitalist History - Past Medical History Cardiac: reports: CAD, HTN DEBEADER: reports: CVA Endocrine: reports: Diabetes - Past Surgical History Past Surgical History: reports: Cholecystectomy Other Surgical History: Gastric bypass, hysterectomy, knee surgery - Family History Family History: reports: no pertinent history - Social History Smoking Status: Former smoker Alcohol: reports: None Drugs: reports: none - Exam General Appearance: awake alert Eye: anicteric sclera Respiratory: no wheezes, no rales, no tachypnea Gastrointestinal: soft, non-tender, non-distended, normal bowel sounds Neurological: speech deficit Neurological - other findings: Upper/lower right limbs 5/5. 1/5 in left upper an lower4/5 left lower limb Psychiatric: A&O x 3 Hospitalist H&P A/P - Plan Plan: This is a 64-year-old female patient with a history of diabetes mellitus, CVA recently discharged returning with worsening right-sided hemiparesis and dysphagia. Recurrent CVA Unclear etiology Initial work-up like last time with CT brain, CTA all negative He still unable to do an MRI because of her pacemaker We will get a stroke team on board We will continue on her CV medications Appreciate neurology input. Diabetes mellitus Correctional dose insulin Monitor glucose. Hypothyroidism Continue levothyroxine next DVT prophylaxisLovenox CODE STATUSfull
[2020-08-09] MEDS ORDERED: Dextrose 50% Abboject 50 ML SYRINGE SLOW IVP PRN (17:15)
[2020-08-09] MEDS ORDERED: HumaLOG 300 UNITS/3 ML VIAL SC PRN (17:15)
[2020-08-09] MEDS ORDERED: Dextrose 5% in Water 1,000 ML IV PRN (17:15)
[2020-08-09] MEDS ORDERED: CODEINE PO PRN (17:57)
[2020-08-09] MEDS ORDERED: ACETAMINOPHEN PO PRN (17:57)
[2020-08-09] MEDS ORDERED: Aspirin 325 mg Enteric Coated Tablet PO SCH (18:00)
[2020-08-09] MEDS: Acetaminophen/Codeine 30-300mg Tablet PO PRN (18:57)
[2020-08-09] MEDS: Gabapentin 300 MG CAP PO SCH (21:21)
[2020-08-09] MEDS: Atorvastatin Calcium 40 MG TAB PO SCH (21:21)
[2020-08-09] MEDS: Mirtazapine 15 MG TAB PO SCH (21:22)
[2020-08-09] MEDS: rOPINIRole HCl 2 MG TAB PO SCH (21:27)
[2020-08-10 05:23] LABS: #Basophils 0.1 thou/uL (0.0-0.2); #Eosinphils 0.5 thou/uL (0.0-0.7); #Lymphocytes 2.3 thou/uL (1.20-3.40); #Monocytes 0.5 thou/uL (0.11-0.59); #Neutrophils 2.6 thou/uL (1.40-6.50); %Basophils 1.4 % (0.0-1.0); %Eosinophils 8.7 % (0.0-10.0); %Monocytes 8.4 % (0.0-10.0); %Neutrophils 43.4 % (42.0-75.0); Hemoglobin 13.5 g/dL (12.0-16.0); Mean Corpuscular HGB CONC 33.7 g/dL (32.0-36.0); Mean Corpuscular Hemoglobin 30.7 pg (27.0-31.0); Mean Corpuscular Volume 91.2 fL (78.0-98.0); Mean Platelet Volume 8.5 fL (7.4-10.4); Platelet Count 172 thou/uL (130-400); RBC Distribution Width 13.4 % (11.5-14.5); Red Blood Cell (RBC) Count 4.41 mill/uL (4.20-5.40); White Blood Cell (WBC) Count 5.9 thou/uL (4.8-10.8)
[2020-08-10 06:15] LABS: Bacteria/HPF 1+ HPF (None Seen); Bilirubin Negative (Negative); Blood, Urine Negative (Negative); Clarity Clear (Clear); Glucose, Urine (Dipstick) Normal (Negative); Ketone, Urine Negative (Negative); Leukocyte 250 Leu/uL (Negative); Nitrite 1+ (Negative); Protein, Urine (Dipstick) Negative (Neg-Trace); RBC/HPF 0-3 HPF (0-3); Specific Gravity, Urine 1.011 (1.002-1.036); Squamous Epithelial None Seen HPF (0-3); Urobilinogen Normal mg/dL (Less than 2); Yeast-Budding 2+ HPF (None Seen)
[2020-08-10 06:16] LABS: Urine Culture Reflex Yes Yes
[2020-08-10] MEDS: Aspirin 325 mg Enteric Coated Tablet PO SCH (08:18)
[2020-08-10] MEDS: Gabapentin 300 MG CAP PO SCH ×2 (08:18→21:36)
[2020-08-10] MEDS: lamoTRIgine 100 MG TAB PO SCH (08:18)
[2020-08-10] MEDS: Acetaminophen/Codeine 30-300mg Tablet PO PRN ×3 (08:19→21:38)
[2020-08-10] MEDS: Enoxaparin Sodium 40 MG/0.4 ML SYRINGE SC SCH (08:21)
[2020-08-10] MEDS ORDERED: Aspirin 325 mg Enteric Coated Tablet PO SCH (09:00)
[2020-08-10] MEDS ORDERED: FLU VACC QS2020-21(65YR UP)/PF 240 MCG/0.7 ML SYRINGE IM ONE (09:00)
[2020-08-10 09:04] LABS: Band 1 % (5-11); Eosinophils 8 % (0-10); Lymphocytes 39 % (21-51); Monocytes 7 % (0-10); Platelet Morphology Comment Appears Adequate
[2020-08-10 09:07] LABS: Neutrophil 45 % (42-75)
[2020-08-10] MEDS ORDERED: cefTRIAXone\\ROCEPHIN 1 GM in Sodium Chloride 0.9% 100 ML IVPB SCH (10:15)
[2020-08-10] MEDS ORDERED: Fluconazole 100 MG TAB PO SCH (10:15)
[2020-08-10] MEDS ORDERED: HumaLOG 300 UNITS/3 ML VIAL SC PRN (10:16)
[2020-08-10] MEDS ORDERED: Dextrose 50% Abboject 50 ML SYRINGE SLOW IVP PRN (10:16)
[2020-08-10] MEDS ORDERED: Dextrose 5% in Water 1,000 ML IV PRN (10:16)
[2020-08-10] MEDS ORDERED: Labetalol HCl 100 MG/20 ML VIAL SLOW IVP PRN (10:18)
--- NOTE | 2020-08-10 10:28 | PDOC.HOSPP ---
- Subjective Encounter Date: 08/10/20 Encounter Time: 10:26 Subjective: Patient seen and examined. No new complaints. No overnight events. Patient says she feels better, her speech deficit and right weakness is baseline per her previous stroke. She has suprapubic catheter and denies any abdominal pain, N/V or fever/chills. She does report intermittent diarrhea, denies any melena or hematochezia. Has no other complaints at this time. - Objective Vital Signs & Weight: Vital Signs (12 hours) Temp Pulse Pulse Resp BP BP Pulse Ox 08/10/20 08:27 68 131/72 08/10/20 08:00 97.7 F 67 16 215/117 H 95 08/10/20 07:38 60 159/78 H 08/10/20 03:26 98.1 F 60 16 137/79 92 L 08/09/20 23:51 98.9 F 62 16 143/80 H 95 Weight Weight 201 lb I&O: 08/09/20 08/10/20 08/11/20 06:59 06:59 06:59 Intake Total 240 Output Total 500 1650 Balance -260 -1650 Result Diagrams: 08/10/20 04:47 Additional Labs: Accuchecks 08/10/20 08/09/20 04:39 21:40 POC Glucose 89 119 H Hospitalist ROS - Review of Systems Constitutional: denies: fever, chills Eyes: denies: vision change ENT: denies: ear pain, nose pain Respiratory: denies: cough, shortness of breath, hemoptysis, SOB with excertion, sputum, wheezing Cardiovascular: denies: chest pain, palpitations, orthopnea, edema, light headedness Gastrointestinal: reports: diarrhea. denies: nausea, vomiting, abdominal pain Genitourinary: denies: dysuria, hematuria Neurological: reports: weakness (right sided, baseline previous stroke), change in speech (baseline previous stroke) All other systems reviewed; all pertinent +/- noted in HPI/Subj - Medication Medications: Active Medications Generic Name Dose Route Start Last Admin Trade Name Freq PRN Reason Stop Dose Admin Acetaminophen/Codeine Phosphate 1 tab 08/09/20 18:45 08/10/20 08:19 Acetaminophen/Codeine 30-300mg Tablet PO 1 tab Q4H PRN Administration Pain Aspirin 325 mg 08/10/20 09:00 08/10/20 08:18 Aspirin 325 Mg Enteric Coated Tablet PO 325 mg DAILY GAYLE Administration Atorvastatin Calcium 40 mg 08/09/20 21:00 08/09/20 21:21 Atorvastatin Calcium 40 Mg Tab PO 40 mg HS GAYLE Administration Enoxaparin Sodium 40 mg 08/10/20 09:00 08/10/20 08:21 Enoxaparin Sodium 40 Mg/0.4 Ml Syringe SC 40 mg 0900 GAYLE Administration Gabapentin 600 mg 08/09/20 21:00 08/10/20 08:18 Gabapentin 300 Mg Cap PO 600 mg BID GAYLE Administration Lamotrigine 200 mg 08/10/20 09:00 08/10/20 08:18 Lamotrigine 100 Mg Tab PO 200 mg DAILY GAYLE Administration Mirtazapine 45 mg 08/09/20 21:00 08/09/20 21:22 Mirtazapine 15 Mg Tab PO 45 mg HS GAYLE Administration Ropinirole HCl 2 mg 08/09/20 21:00 08/09/20 21:27 Ropinirole Hcl 2 Mg Tab PO 2 mg HS GAYLE Administration Sodium Chloride 10 ml 08/09/20 16:13 08/09/20 21:20 Flush - Normal Saline 10 Ml Syringe IVF 10 ml PRN PRN Administration Saline Flush Ziprasidone 80 mg 08/09/20 21:00 08/10/20 08:18 Ziprasidone Hcl 80 Mg Cap PO 80 mg BID GAYLE Administration - Exam General Appearance: NAD, awake alert. negative: ill appearing Eye: PERRL, anicteric sclera ENT: normocephalic atraumatic Neck: supple, symmetric, no JVD Heart: RRR, no murmur, no gallops, no rubs, normal peripheral pulses Respiratory: CTAB, no wheezes, no rales, no ronchi, normal chest expansion, no tachypnea Gastrointestinal: non-tender, non-distended, normal bowel sounds, no bruit, no guarding, no rigidity Gastrointestinal - other findings: suprapubic cath in place Extremities: no cyanosis, no edema Skin: no rashes Neurological: negative: vision deficit Neurological - other findings: right hemiparesis, dysarthria Musculoskeletal - other findings: right weakness Psychiatric: normal affect, A&O x 3 Psychiatric - other findings: slurred speech Hosp A/P (1) CVA (cerebral vascular accident) Code(s): I63.9 - CEREBRAL INFARCTION, UNSPECIFIED Status: Acute (2) HTN (hypertension) Code(s): I10 - ESSENTIAL (PRIMARY) HYPERTENSION Status: Chronic (3) DMII (diabetes mellitus, type 2) Status: Chronic (4) GERD (gastroesophageal reflux disease) Code(s): K21.9 - GASTRO-ESOPHAGEAL REFLUX DISEASE WITHOUT ESOPHAGITIS Status: Chronic (5) HLD (hyperlipidemia) Code(s): E78.5 - HYPERLIPIDEMIA, UNSPECIFIED Status: Chronic (6) Hypothyroidism Code(s): E03.9 - HYPOTHYROIDISM, UNSPECIFIED Status: Chronic (7) Asymptomatic bacteriuria Code(s): R82.71 - BACTERIURIA Status: Chronic - Plan #CVA recurrent. Awaiting neurology consultation. Stroke team consulted. Continue ASA and statin. Check TSH and folate/B12 level. Permissive HTN. #DMII continue ISS Q6 hour checks. #HTN BP 159/78 reading this am. Restart home medication. Labetalol prn. #HLD Continue statin. #Hypothyroidism Check TSH. Start home dose levothyroxine. #Asymptomatic Bacturia Likely colonization from suprapubic catheter. Culture reflexed. Consult urology. LMWH DVT prophylaxis Protonix GI prophylaxis. Full code. Discussed case with Dr. Patterson.
--- NOTE | 2020-08-10 11:07 | PDOC.EVN ---
Event Note - Event Note Event Note: Nursing called, patient refusing accuchecks. Says not a diabetic. last HA1C was 5.2. Will d/c accuchecks and sliding scale.
[2020-08-10 12:34] LABS: SARS-CoV-2 MS2 Positive; SARS-CoV-2 N Gene Negative; SARS-CoV-2 S Gene Negative; SARS-CoV-2 by NAA Not Detected (NotDetected); SARS-CoV-2 orf1ab Negative
--- NOTE | 2020-08-10 13:03 | CON ---
NEUROLOGY CONSULTATION DATE OF CONSULTATION: 08/10/2020 REASON FOR CONSULTATION: Stroke, dysarthria/right-sided weakness. HISTORY OF PRESENT ILLNESS: Ms. Charles is a 64-year-old female with history significant for prior CVA, diabetes mellitus type 2, hypothyroidism, COPD, and GERD, transferred from the [facility] because of right-sided weakness and severe dysphagia and dysarthria. The patient was recently admitted to the [facility] from 07/05/2020 and discharged on 07/08/2020 because of worsening right-sided weakness and tremors on the right side. The patient was seen by Neurology and CT of the head and CTA of the head and neck were all unremarkable. She was unable to undergo MRI of the brain because her pacemaker is incompatible. Her condition improved at the time of the discharge, but she still has residual right-sided weakness per records. She was noted to be at her baseline 8:30 a.m. on the morning of 08/09/2020. She does have residual right facial droop and right hemiparesis. She has problem speaking and worsening right-sided weakness. She was brought to the hospital, where the head CT was done, which was negative for acute intracranial pathology. CTA of the head and neck was also unremarkable. Her initial NIH score was 18, so she was transferred to [facility] for further evaluation. Her condition improved since admission and is almost back to baseline. ALLERGIES: Morphine, butorphanol PAST MEDICAL HISTORY: Coronary artery disease, hypertension, prior CVA, and diabetes mellitus. PAST SURGICAL HISTORY: Cholecystectomy, gastric bypass, hysterectomy, knee surgery. FAMILY HISTORY: No significant family history. SOCIAL HISTORY: The patient is a former smoker. - Objective Vital Signs & Weight: Vital Signs (12 hours) Temp Pulse Pulse Resp BP BP Pulse Ox 08/10/20 08:27 68 131/72 08/10/20 08:00 97.7 F 67 16 215/117 H 95 08/10/20 07:38 60 159/78 H 08/10/20 03:26 98.1 F 60 16 137/79 92 L 08/09/20 23:51 98.9 F 62 16 143/80 H 95 Weight Weight 201 lb I&O: 08/09/20 08/10/20 08/11/20 06:59 06:59 06:59 Intake Total 240 Output Total 500 1650 Balance -260 -1650 08/10/20 08/09/20 04:39 21:40 POC Glucose 89 119 H - Review of Systems Constitutional: denies: fever, chills Eyes: denies: vision change ENT: denies: ear pain, nose pain Respiratory: denies: cough, shortness of breath, hemoptysis, SOB with excertion, sputum, wheezing Cardiovascular: denies: chest pain, palpitations, orthopnea, edema, light headedness Gastrointestinal: reports: diarrhea. denies: nausea, vomiting, abdominal pain Genitourinary: denies: dysuria, hematuria Neurological: reports: weakness (right sided, baseline previous stroke), change in speech (baseline previous stroke) All other systems reviewed; all pertinent +/- noted in HPI/Subj - Active Medications Generic Name Dose Route Start Last Admin Trade Name Freq PRN Reason Stop Dose Admin Acetaminophen/Codeine Phosphate 1 tab 08/09/20 18:45 08/10/20 08:19 Acetaminophen/Codeine 30-300mg Tablet PO 1 tab Q4H PRN Administration Pain Aspirin 325 mg 08/10/20 09:00 08/10/20 08:18 Aspirin 325 Mg Enteric Coated Tablet PO 325 mg DAILY GAYLE Administration Atorvastatin Calcium 40 mg 08/09/20 21:00 08/09/20 21:21 Atorvastatin Calcium 40 Mg Tab PO 40 mg HS GALYE Administration Enoxaparin Sodium 40 mg 08/10/20 09:00 08/10/20 08:21 Enoxaparin Sodium 40 Mg/0.4 Ml Syringe SC 40 mg 0900 GAYLE Administration Gabapentin 600 mg 08/09/20 21:00 08/10/20 08:18 Gabapentin 300 Mg Cap PO 600 mg BID GAYLE Administration Lamotrigine 200 mg 08/10/20 09:00 08/10/20 08:18 Lamotrigine 100 Mg Tab PO 200 mg DAILY GAYLE Administration Mirtazapine 45 mg 08/09/20 21:00 08/09/20 21:22 Mirtazapine 15 Mg Tab PO 45 mg HS GAYLE Administration Ropinirole HCl 2 mg 08/09/20 21:00 08/09/20 21:27 Ropinirole Hcl 2 Mg Tab PO 2 mg HS GAYLE Administration Sodium Chloride 10 ml 08/09/20 16:13 08/09/20 21:20 Flush - Normal Saline 10 Ml Syringe IVF 10 ml PRN PRN Administration Saline Flush Ziprasidone 80 mg 08/09/20 21:00 08/10/20 08:18 Ziprasidone Hcl 80 Mg Cap PO 80 mg BID GAYLE Administration - Exam General Appearance: NAD, awake alert. negative: ill appearing Eye: PERRL, anicteric sclera ENT: normocephalic atraumatic Neck: supple, symmetric, no JVD Heart: RRR, no murmur, no gallops, no rubs, normal peripheral pulses Respiratory: CTAB, no wheezes, no rales, no ronchi, normal chest expansion, no tachypnea Gastrointestinal: non-tender, non-distended, normal bowel sounds, no bruit, no guarding, no rigidity Gastrointestinal - other findings: suprapubic cath in place Extremities: no cyanosis, no edema Skin: no rashes Neurological: Mental status; the patient is alert and awake. She does have receptive aphasia. She follows commands intermittently. Speech is slurred. Cranial nerves; pupils 4 mm, round and reactive to light. Right facial droop. Rest of the cranial nerves were unremarkable. Motor; muscle tone and bulk are normal. Strength; right hemiparesis. Mental status; she is alert and oriented to person and place. Gait deferred due to the patient's safety reasons. Cerebellar; slow on the right due to weakness Data reviewed. I reviewed the head CT, which was negative for acute intracranial pathology. ASSESSMENT AND PLAN: (1) CVA (cerebral vascular accident) Code(s): I63.9 - CEREBRAL INFARCTION, UNSPECIFIED Status: Acute (2) HTN (hypertension) Code(s): I10 - ESSENTIAL (PRIMARY) HYPERTENSION Status: Chronic (3) DMII (diabetes mellitus, type 2) Status: Chronic (4) GERD (gastroesophageal reflux disease) Code(s): K21.9 - GASTRO-ESOPHAGEAL REFLUX DISEASE WITHOUT ESOPHAGITIS Status: Chronic (5) HLD (hyperlipidemia) Code(s): E78.5 - HYPERLIPIDEMIA, UNSPECIFIED Status: Chronic (6) Hypothyroidism Code(s): E03.9 - HYPOTHYROIDISM, UNSPECIFIED Status: Chronic (7) Asymptomatic bacteriuria Code(s): R82.71 - BACTERIURIA Status: Chronic Ms. Lory Charles is a 64-year-old female with history significant for diabetes mellitus, prior cerebrovascular accident with residual right hemiparesis and dysphagia, presented with dysarthria and receptive aphasia and worsening right-sided hemiparesis. CT of the head reviewed, which was negative for acute intracranial pathology. CTA of the head and neck was negative for hemodynamically significant stenosis. We were unable to perform MRI because of pacemaker is incompatible. 2D echo was done on 07/06/2020, which showed ejection fraction of 50% to 55% and no thrombus or PFO. No need to repeat the echocardiogram. Monitor blood pressure at this time. Strict control of blood glucose. Continue n.p.o. until cleared by Speech. PT/OT/Speech. Medical management per primary team. Telemetry. We will continue to follow. Thank you for the consult. Job ID: [id number] [facility] HOSPITALCheryl
[2020-08-10] MEDS ORDERED: Acetaminophen/Codeine 30-300mg Tablet PO SCH (17:15)
[2020-08-10] MEDS ORDERED: Prazosin HCl 1 MG CAP PO SCH (21:00)
[2020-08-10] MEDS: rOPINIRole HCl 2 MG TAB PO SCH (21:33)
[2020-08-10] MEDS: Mirtazapine 15 MG TAB PO SCH (21:35)
[2020-08-10] MEDS: Atorvastatin Calcium 40 MG TAB PO SCH (21:37)
[2020-08-11 05:48] LABS: Thyroid Stimulating Hormone 2.1682 uIU/mL (0.35-4.94)
[2020-08-11] MEDS ORDERED: Linaclotide [Linzess] 290 MCG Capsule PO SCH (06:00)
[2020-08-11] MEDS ORDERED: Levothyroxine Sodium 88 MCG TAB PO SCH (06:00)
--- NOTE | 2020-08-11 07:22 | PDOC.HOSPP ---
- Subjective Encounter Date: 08/11/20 Encounter Time: 07:22 Subjective: Patient seen and examined. No new complaints. No overnight events. Says she feels fine. She reports generalized backache, denies any abdominal pain, N/V/D. Denies and fever or chills. Denies any chest pain, SOB. Says she is tolerating diet ok. No other complaints. We discussed her UA results and urology recommending treating her for UTI. - Objective Vital Signs & Weight: Vital Signs (12 hours) Temp Pulse Resp BP Pulse Ox 08/11/20 03:00 97.5 F L 63 16 116/58 L 95 08/10/20 23:52 98.8 F 66 15 114/54 L 92 L 08/10/20 19:46 98.2 F 65 20 133/86 Weight Weight 201 lb I&O: 08/10/20 08/11/20 08/12/20 06:59 06:59 06:59 Intake Total 240 840 Output Total 500 3255 Balance -260 -1398 Result Diagrams: 08/11/20 07:58 08/11/20 07:58 Hospitalist ROS - Review of Systems Constitutional: denies: fever, chills Respiratory: denies: cough, shortness of breath, hemoptysis Cardiovascular: denies: chest pain, palpitations, paroxysmal noc. dyspnea, edema, light headedness Gastrointestinal: denies: nausea, vomiting, abdominal pain, diarrhea, constipation Neurological: denies: confusion Other: right hemiparesis, slurred speech, baseline since admission - Medication Medications: Active Medications Generic Name Dose Route Start Last Admin Trade Name Bernabeq PRN Reason Stop Dose Admin Acetaminophen/Codeine Phosphate 1 tab 08/09/20 18:45 08/10/20 21:38 Acetaminophen/Codeine 30-300mg Tablet PO 1 tab Q4H PRN Administration Pain Aspirin 325 mg 08/10/20 09:00 08/10/20 08:18 Aspirin 325 Mg Enteric Coated Tablet PO 325 mg DAILY GAYLE Administration Atorvastatin Calcium 40 mg 08/09/20 21:00 08/10/20 21:37 Atorvastatin Calcium 40 Mg Tab PO 40 mg HS GAYLE Administration Enoxaparin Sodium 40 mg 08/10/20 09:00 08/10/20 08:21 Enoxaparin Sodium 40 Mg/0.4 Ml Syringe SC 40 mg 09 GAYLE Administration Gabapentin 600 mg 08/09/20 21:00 08/10/20 21:36 Gabapentin 300 Mg Cap PO 600 mg BID GAYLE Administration Lamotrigine 200 mg 08/10/20 09:00 08/10/20 08:18 Lamotrigine 100 Mg Tab PO 200 mg DAILY GAYLE Administration Levothyroxine Sodium 88 mcg 08/11/20 06:00 08/11/20 06:38 Levothyroxine Sodium 88 Mcg Tab PO 88 mcg 0600 GAYLE Administration Mirtazapine 45 mg 08/09/20 21:00 08/10/20 21:35 Mirtazapine 15 Mg Tab PO 45 mg HS GAYLE Administration Prazosin HCl 3 mg 08/10/20 21:00 08/10/20 21:39 Prazosin Hcl 1 Mg Cap PO 3 mg HS GAYLE Administration Ropinirole HCl 2 mg 08/09/20 21:00 08/10/20 21:33 Ropinirole Hcl 2 Mg Tab PO 2 mg HS GAYLE Administration Sodium Chloride 10 ml 08/09/20 16:13 08/09/20 21:20 Flush - Normal Saline 10 Ml Syringe IVF 10 ml PRN PRN Administration Saline Flush Ziprasidone 80 mg 08/09/20 21:00 08/10/20 21:40 Ziprasidone Hcl 80 Mg Cap PO 80 mg BID GAYLE Administration - Exam General Appearance: NAD, awake alert. negative: ill appearing Eye: PERRL, anicteric sclera ENT: normocephalic atraumatic, moist mucosa Neck: supple, symmetric, no JVD Heart: RRR, no murmur, no gallops, no rubs, normal peripheral pulses Respiratory: CTAB, no wheezes, no rales, no ronchi, normal chest expansion, no tachypnea Gastrointestinal: soft, non-tender, normal bowel sounds, no bruit, no guarding, no rigidity Extremities: no cyanosis, no edema Skin: no rashes Neurological: no new deficit, facial droop (right), hemiplegia (right), speech deficit (slurred) Neurological - other findings: right hemiparesis, dysarthria Musculoskeletal - other findings: Right significantly weak, extremities drift to bed, right music worker weak Psychiatric: normal affect, A&O x 3 Hosp A/P (1) CVA (cerebral vascular accident) Code(s): I63.9 - CEREBRAL INFARCTION, UNSPECIFIED Status: Acute (2) HTN (hypertension) Code(s): I10 - ESSENTIAL (PRIMARY) HYPERTENSION Status: Chronic (3) DMII (diabetes mellitus, type 2) Status: Chronic (4) GERD (gastroesophageal reflux disease) Code(s): K21.9 - GASTRO-ESOPHAGEAL REFLUX DISEASE WITHOUT ESOPHAGITIS Status: Chronic (5) HLD (hyperlipidemia) Code(s): E78.5 - HYPERLIPIDEMIA, UNSPECIFIED Status: Chronic (6) Hypothyroidism Code(s): E03.9 - HYPOTHYROIDISM, UNSPECIFIED Status: Chronic (7) Asymptomatic bacteriuria Code(s): R82.71 - BACTERIURIA Status: Chronic - Plan #CVA likely TIA Appreciate neurology recs. Repeat Ct brain today, no acute infarction PT/OT SNF vs SNU - patient declines, prefers HH Add plavix and change ASA to 81 mg per neurology. #DMII HA1C 5.2 on 07/06 discontinue ISS and accuchecks. Patient tolerating diet. #HTN BP 159/78 reading this am. Restart home medication. Labetalol prn. #HLD Continue statin. #Hypothyroidism Check TSH. Start home dose levothyroxine. #Asymptomatic Bacturia Appreciate urology recs. Start diflucan. Patient to follow up with urologist outpatient, Dr. Gordon. LMWH DVT prophylaxis Protonix GI prophylaxis. Full code. Discussed case with Dr. Patterson.
[2020-08-11 08:19] LABS: #Basophils 0.1 thou/uL (0.0-0.2); #Eosinphils 0.5 thou/uL (0.0-0.7); #Lymphocytes 2.2 thou/uL (1.20-3.40); #Monocytes 0.5 thou/uL (0.11-0.59); #Neutrophils 3.4 thou/uL (1.40-6.50); %Basophils 1.1 % (0.0-1.0); %Eosinophils 6.9 % (0.0-10.0); %Lymphocytes 33.6 % (21.0-51.0); %Monocytes 7.5 % (0.0-10.0); %Neutrophils 50.9 % (42.0-75.0); Hemoglobin 13.6 g/dL (12.0-16.0); Mean Corpuscular HGB CONC 33.3 g/dL (32.0-36.0); Mean Corpuscular Hemoglobin 30.4 pg (27.0-31.0); Mean Corpuscular Volume 91.3 fL (78.0-98.0); Mean Platelet Volume 8.6 fL (7.4-10.4); Platelet Count 171 thou/uL (130-400); RBC Distribution Width 13.5 % (11.5-14.5); Red Blood Cell (RBC) Count 4.46 mill/uL (4.20-5.40); White Blood Cell (WBC) Count 6.6 thou/uL (4.8-10.8)
[2020-08-11 08:42] LABS: Anion Gap 12 mmol/L (10-20); BUN (Urea Nitrogen) 20 mg/dL (9.8-20.1); Calc. Creatinine Clearance 63 mL/min (70-130); Calcium 9.3 mg/dL (7.8-10.44); Carbon Dioxide 26 mmol/L (23-31); Chloride 106 mmol/L (98-107); Estimated GFR-MDRD 42; Glucose 95 mg/dL (80-115); Potassium 4.3 mmol/L (3.5-5.1); Sodium 140 mmol/L (136-145)
--- NOTE | 2020-08-11 08:49 | CT ---
EXAM: Brain CTWithout contrast: HISTORY: Post CVA, right-sided weakness COMPARISON: 08/09/2020 FINDINGS: No focal mass or midline shift. No intra or extra-axial hemorrhage. Sinuses and mastoids are clear of acute process. IMPRESSION: No mass or bleed or other significant acute intracranial process.
[2020-08-11] MEDS ORDERED: Oxybutynin 5 MG TAB PO SCH (09:00)
[2020-08-11] MEDS: Enoxaparin Sodium 40 MG/0.4 ML SYRINGE SC SCH (09:00)
[2020-08-11] MEDS ORDERED: Fluconazole 100 MG TAB PO SCH ×2 (09:00→09:45)
[2020-08-11] MEDS ORDERED: Saccharomyces boulardii 250 MG CAP PO SCH (09:00)
[2020-08-11] MEDS ORDERED: Multivit, Therapeutic 1 TAB PO SCH (09:00)
[2020-08-11] MEDS: Gabapentin 300 MG CAP PO SCH (09:01)
[2020-08-11] MEDS: Acetaminophen/Codeine 30-300mg Tablet PO PRN ×2 (09:02→16:29)
[2020-08-11] MEDS: lamoTRIgine 100 MG TAB PO SCH (09:02)
[2020-08-11] MEDS: Aspirin 325 mg Enteric Coated Tablet PO SCH (09:03)
[2020-08-11] MEDS ORDERED: cefTRIAXone\\ROCEPHIN 1 GM in Sodium Chloride 0.9% 100 ML IVPB SCH (10:00)
--- NOTE | 2020-08-11 14:01 | PDOC.NEUPN ---
- Subjective Encounter Date: 08/11/20 Subjective: Patient feels better today. Repeat head CT negative for acute intracranial pathology. - Objective Vital Signs & Weight: Vital Signs (12 hours) Temp Pulse Pulse Pulse Resp BP BP 08/11/20 13:07 97.5 F L 60 18 08/11/20 09:55 63 117/71 08/11/20 09:23 60 126/71 08/11/20 08:11 98.7 F 60 16 08/11/20 03:00 97.5 F L 63 16 BP Pulse Ox 08/11/20 13:07 126/67 95 08/11/20 09:55 08/11/20 09:23 08/11/20 08:11 132/61 93 L 08/11/20 03:00 116/58 L 95 Weight Weight 201 lb I&O: 08/10/20 08/11/20 08/12/20 06:59 06:59 06:59 Intake Total 240 840 120 Output Total 500 2305 125 Balance -260 -2735 -5 Result Diagrams: 08/11/20 07:58 08/11/20 07:58 Radiology Reviewed by me: Yes EKG Reviewed by me: Yes ROS - Review of Systems Constitutional: denies: fever, chills, sweats, weakness, malaise, other Eyes: denies: pain, vision change, conjunctivae inflammation, eyelid inflammation, redness, other ENT: denies: ear pain, ear discharge, nose pain, nose discharge, nose congestion, mouth pain, mouth swelling, throat pain, throat swelling, other Gastrointestinal: denies: nausea, vomiting, abdominal pain, diarrhea, constipation, melena, hematochezia, other Genitourinary: denies: dysuria, frequency, incontinence, hematuria, retention, other Musculoskeletal: denies: neck pain, shoulder pain, arm pain, back pain, hand pain, leg pain, foot pain, other Skin: denies: rash, lesions, kadeem, bruising, other Neurological: reports: weakness, numbness, incoordination. denies: change in speech, confusion, seizures, other All Systems: All other systems reviewed; all pertinent +/- noted in HPI/Subj - Medication Medications: Active Medications Generic Name Dose Route Start Last Admin Trade Name Freq PRN Reason Stop Dose Admin Acetaminophen/Codeine Phosphate 1 tab 08/09/20 18:45 08/11/20 09:02 Acetaminophen/Codeine 30-300mg Tablet PO 1 tab Q4H PRN Administration Pain Aspirin 325 mg 08/10/20 09:00 08/11/20 09:03 Aspirin 325 Mg Enteric Coated Tablet PO 325 mg DAILY GAYLE Administration Atorvastatin Calcium 40 mg 08/09/20 21:00 08/10/20 21:37 Atorvastatin Calcium 40 Mg Tab PO 40 mg HS GAYLE Administration Enoxaparin Sodium 40 mg 08/10/20 09:00 08/11/20 09:00 Enoxaparin Sodium 40 Mg/0.4 Ml Syringe SC 40 mg 0900 GAYLE Administration Gabapentin 600 mg 08/09/20 21:00 08/11/20 09:01 Gabapentin 300 Mg Cap PO 600 mg BID GAYLE Administration Ceftriaxone Sodium 1 gm/ 100 mls @ 200 mls/hr 08/11/20 10:00 08/11/20 10:59 Sodium Chloride IVPB 100 mls Q24HR GAYLE Administration Lamotrigine 200 mg 08/10/20 09:00 08/11/20 09:02 Lamotrigine 100 Mg Tab PO 200 mg DAILY GAYLE Administration Levothyroxine Sodium 88 mcg 08/11/20 06:00 08/11/20 06:38 Levothyroxine Sodium 88 Mcg Tab PO 88 mcg 0600 GAYLE Administration Mirtazapine 45 mg 08/09/20 21:00 08/10/20 21:35 Mirtazapine 15 Mg Tab PO 45 mg HS GAYLE Administration Multivitamins 1 tab 08/11/20 09:00 08/11/20 09:03 Multivit, Therapeutic 1 Tab PO 1 tab DAILY GAYLE Administration Oxybutynin Chloride 5 mg 08/11/20 09:00 08/11/20 09:03 Oxybutynin 5 Mg Tab PO 5 mg DAILY GAYLE Administration Pantoprazole Sodium 40 mg 08/11/20 09:00 08/11/20 09:03 Pantoprazole 40 Mg Tab PO 40 mg DAILY GAYLE Administration Prazosin HCl 3 mg 08/10/20 21:00 08/10/20 21:39 Prazosin Hcl 1 Mg Cap PO 3 mg HS GAYLE Administration Ropinirole HCl 2 mg 08/09/20 21:00 08/10/20 21:33 Ropinirole Hcl 2 Mg Tab PO 2 mg HS GAYLE Administration Saccharomyces Boulardii 250 mg 08/11/20 09:00 08/11/20 09:01 Saccharomyces Boulardii 250 Mg Cap PO 250 mg DAILY GAYLE Administration Sodium Chloride 10 ml 08/09/20 16:13 08/11/20 09:01 Flush - Normal Saline 10 Ml Syringe IVF 10 ml PRN PRN Administration Saline Flush Ziprasidone 80 mg 08/09/20 21:00 08/11/20 09:01 Ziprasidone Hcl 80 Mg Cap PO 80 mg BID GAYLE Administration - Exam General Appearance: awake alert Eye: PERRL ENT: normocephalic atraumatic Neck: supple Respiratory: CTAB Cardiovascular: RRR Gastrointestinal: soft Extremities: no cyanosis Skin: normal turgor Neurological: no new deficit Musculoskeletal: normal tone, no muscle wasting PSYCH: normal affect, normal behavior, A&O x 3 Results - Labs Result Diagrams: 08/11/20 07:58 08/11/20 07:58 Lab results: WBC 6.6 thou/uL (4.8-10.8) 08/11/20 07:58 Hgb 13.6 g/dL (12.0-16.0) 08/11/20 07:58 Hct 40.7 % (36.0-47.0) 08/11/20 07:58 MCV 91.3 fL (78.0-98.0) 08/11/20 07:58 Plt Count 171 thou/uL (130-400) 08/11/20 07:58 Neutrophils % 50.9 % (42.0-75.0) 08/11/20 07:58 Band Neuts % (Manual) 1 % (5-11) L 08/10/20 04:47 Sodium 140 mmol/L (136-145) 08/11/20 07:58 Potassium 4.3 mmol/L (3.5-5.1) 08/11/20 07:58 Chloride 106 mmol/L (98-107) 08/11/20 07:58 Carbon Dioxide 26 mmol/L (23-31) 08/11/20 07:58 BUN 20 mg/dL (9.8-20.1) 08/11/20 07:58 Creatinine 1.26 mg/dL (0.6-1.1) H 08/11/20 07:58 Glucose 95 mg/dL (80-115) 08/11/20 07:58 Calcium 9.3 mg/dL (7.8-10.44) 08/11/20 07:58 Urine Ketones Negative mg/dL (Negative) 08/09/20 05:05 Urine Blood Negative (Negative) 08/09/20 05:05 Urine Nitrite 1+ (Negative) A 08/09/20 05:05 Ur Leukocyte Esterase 250 Shaun/uL (Negative) A 08/09/20 05:05 Urine RBC 0-3 HPF (0-3) 08/09/20 05:05 Urine WBC 7-10 HPF (0-3) A 08/09/20 05:05 Ur Squamous Epith Cells None Seen HPF (0-3) 08/09/20 05:05 Urine Bacteria 1+ HPF (None Seen) A 08/09/20 05:05 - Radiology Interpretation CT scan - head Status: image reviewed by me, report reviewed by me Additional Comment: Negative for acute intracranial pathology. PN A/P (1) TIA (transient ischemic attack) Code(s): G45.9 - TRANSIENT CEREBRAL ISCHEMIC ATTACK, UNSPECIFIED Status: Acute (2) DMII (diabetes mellitus, type 2) Status: Chronic (3) CVA (cerebral vascular accident) Code(s): I63.9 - CEREBRAL INFARCTION, UNSPECIFIED Status: Acute (4) Right upper lobe pulmonary nodule Code(s): R91.1 - SOLITARY PULMONARY NODULE Status: Acute (5) UTI (urinary tract infection) Status: Acute (6) COPD (chronic obstructive pulmonary disease) Status: Chronic (7) GERD (gastroesophageal reflux disease) Code(s): K21.9 - GASTRO-ESOPHAGEAL REFLUX DISEASE WITHOUT ESOPHAGITIS Status: Chronic - Plan Daily Plan: PT/OT, speech therapy, DVT proph w/SCDs Ms. Charles is a 64-year-old female with history significant for prior TIA, hypertension, hyperlipidemia and diabetes mellitus presented with acute onset speech deficit with worsening right-sided weakness. The patient condition is now improved and she is able to move her right upper and lower extremity. Speech is also improved. MRI of the brain is not possible due to incompatible AICD device. Head CT repeated today which was negative for acute intracranial pathology. Extensive stroke work-up completed during the last admission so not repeated during this admission Change aspirin to 81 mg daily and add Plavix 75 mg daily for secondary stroke prevention. Continue high intensity statin for secondary stroke prevention. Neurochecks every 4 hours. Strict control of blood pressure and blood glucose Continue home medications PT/OT/speech Telemetry Continue medical management per primary team. Plan discussed in detail with the patient and also the primary provider
[2020-08-11 17:13] VITALS: BP 129/70; TEMP 97.8
--- NOTE | 2020-08-11 19:11 | DIS ---
DATE OF ADMISSION: 08/09/2020 DATE OF DISCHARGE: 08/11/2020 PRIMARY CARE PHYSICIAN: Efren Green MD DIAGNOSES: 1. Transient ischemic attack. 2. Hypertension. 3. Diabetes mellitus 2. 4. Gastroesophageal reflux disease. 5. Hyperlipidemia. 6. Hypothyroidism. 7. Asymptomatic bacteriuria. 8. History of stroke. 9. COVID test negative. CONDITION: Stable. I examined the patient today at discharge, along with Dr. Patterson, vital signs were stable. The patient denies any new focal motor weakness, neurologically baseline at discharge. Denies any chest pain or shortness of breath. S1 and S2 auscultated. Lungs clear bilaterally. CONSULTS: Neurology, Dr. Shelley Peña. HOSPITAL COURSE: The patient is a 64-year-old female with a past medical history significant for CVA with residual right-sided hemiparesis, dysphagia, and dysarthria, presented to the [facility] as a transfer from [facility] for concern of new stroke/TIA. The patient reported increased right-sided weakness, dysphagia, and dysarthria. CT and CTA at [facility] were negative. The patient is unable to have MRI due to pacemaker incompatibility. The patient previously had an echocardiogram on 07/06/2020, which showed an ejection fraction of 50% to 55%. No thrombus or PFO. There is no need to repeat the echocardiogram. The patient was continued on full dose aspirin and statin throughout her course of stay. The patient underwent a repeat CT of brain on 07/11/2020 that was negative for any acute intracranial process. The patient's symptoms were baseline at discharge. Neurology recommended stopping full dose aspirin, starting plavix in concert with a baby aspirin. The patient also has a permanent suprapubic catheter, which is followed by Dr. Gordon, Urology. The patient reports that she has her catheter switched out monthly. She reports that she is due for catheter change. Her UA showed 1+ nitrites, 250 leukocyte esterase, 7 to 10 wbc's, 1+ bacteria, and 2+ budding yeast. Urine culture is still pending. Urology was consulted and recommended treatment of yeast. The patient is started on Diflucan and will be discharged home with a prescription for Diflucan. The patient is to follow up with Dr. Gordon in the next week. MEDICATIONS: At discharge; 1. Diflucan 200 mg p.o. daily x13 days. 2. Aspirin 81 mg p.o. daily. 3. Plavix 75 mg p.o. daily. 4. Klonopin 0.5 mg p.o. b.i.d. p.r.n. for anxiety. 5. Atorvastatin 40 mg p.o. at bedtime. 6. Gabapentin 600 mg p.o. b.i.d. 7. Lamotrigine 200 mg p.o. daily. 8. Synthroid 88 mcg p.o. daily. 9. Linzess 290 mcg p.o. q.a.m. 10. Mirtazapine 45 mg p.o. at bedtime. 11. Multivitamin one tablet p.o. daily. 12. Ditropan 5 mg p.o. daily. 13. Protonix 40 mg p.o. daily. 14. Prazosin 3 mg p.o. at bedtime. 15. Ropinirole 2 mg p.o. at bedtime. 16. Geodon 80 mg p.o. b.i.d. FOLLOWUP: Dr. Efren Green in one week and Dr. Gordon in one week. DIET: Heart healthy, chopped with thin liquids, whole pills okay. ACTIVITY: As tolerated. DISPOSITION: Home with home health. TIME SPENT ON DISCHARGE: 20 minutes. Job ID: [id number] MTDD
[2020-08-12] MEDS ORDERED: Fluconazole 100 MG TAB PO SCH (09:00)
== END 2020-08-11 18:34 | disposition home health service (06) | DRG 69 ==
LOC: 2SE 14:40 → OBSVTOIN 23:01
PROVIDERS: ADMIT Student in an Organized Health Care Education/Training Program; ATTEND Student in an Organized Health Care Education/Training Program
DX: G45.9 Transient cerebral ischemic attack, unspecified (principal); I69.351 Hemiplegia and hemiparesis following cerebral infarction affecting right dominant side; I10 Essential (primary) hypertension; E11.9 Type 2 diabetes mellitus without complications; K21.9 Gastro-esophageal reflux disease without esophagitis; E78.5 Hyperlipidemia, unspecified; E03.9 Hypothyroidism, unspecified; R82.71 Bacteriuria; Z20.828 Contact with and (suspected) exposure to other viral communicable diseases; R13.10 Dysphagia, unspecified; J44.9 Chronic obstructive pulmonary disease, unspecified; I25.10 Atherosclerotic heart disease of native coronary artery without angina pectoris; R91.1 Solitary pulmonary nodule; I69.391 Dysphagia following cerebral infarction; I69.322 Dysarthria following cerebral infarction; Z90.49 Acquired absence of other specified parts of digestive tract; Z98.84 Bariatric surgery status; Z90.710 Acquired absence of both cervix and uterus; Z93.6 Other artificial openings of urinary tract status; Z88.5 Allergy status to narcotic agent; Z88.8 Allergy status to other drugs, medicaments and biological substances; Z87.891 Personal history of nicotine dependence; Z95.810 Presence of automatic (implantable) cardiac defibrillator; Z79.899 Other long term (current) drug therapy; Z79.890 Hormone replacement therapy; Z79.82 Long term (current) use of aspirin
CPT/HCPCS: 36415; 36416; 70450; 80048; 80061; 81001; 82607; 82746; 84443; 85025; 87635; J0696; J1650; J3490; U0003

== ENCOUNTER 2020-11-04 12:21 | Outpatient (CLI) | payer MEDICARE, OTHER ==
--- NOTE | 2020-11-04 14:14 | CT ---
CT PULMONARY LUNG SCAN: 11/04/20 HISTORY: Former smoker for 40 years, quite ten years ago. Smoked one pack a day. There is some linear parenchymal change within the lingula which appears to represent scar. Calcified granuloma is seen in the right upper lobe. There is some small but slightly numerous mediastinal nod es. These are nonspecific and probably reactive. Thoracic aorta is normal in caliber. The visualized liver parenchyma shows no focal findings. Gallbladder has been removed. IMPRESSION: Lung RADS category 1 - negative. Annual follow-up recommended. POS: BARBARA
== END 2020-11-04 12:22 | disposition home or self-care (01) ==
LOC: BICCT 12:21
PROVIDERS: ATTEND Internal Medicine Critical Care Medicine
DX: R91.1 Solitary pulmonary nodule (principal); Z87.891 Personal history of nicotine dependence
CPT/HCPCS: 71271

== ENCOUNTER 2020-12-30 09:28 | Outpatient (CLI) | payer MEDICARE, OTHER | END 2020-12-30 09:29 | disposition home or self-care (01) | LOC: RAD 09:28 | PROVIDERS: ATTEND Physician Assistant Medical | DX: R13.10 Dysphagia, unspecified (principal); K59.00 Constipation, unspecified | CPT/HCPCS: 74220 ==

== ENCOUNTER 2021-03-14 14:01 | Inpatient (IN) | payer MEDICARE, OTHER ==
[2021-03-14 14:57] LABS: #Basophils 0.1 thou/uL (0.0-0.2); #Eosinphils 0.4 thou/uL (0.0-0.7); #Monocytes 0.6 thou/uL (0.11-0.59); #Neutrophils 4.2 thou/uL (1.40-6.50); %Basophils 1.1 % (0.0-1.0); %Lymphocytes 28.3 % (21.0-51.0); %Monocytes 7.9 % (0.0-10.0); %Neutrophils 57.7 % (42.0-75.0); Mean Corpuscular HGB CONC 34.1 g/dL (32.0-36.0); Mean Corpuscular Hemoglobin 31.9 pg (27.0-31.0); Mean Corpuscular Volume 93.5 fL (78.0-98.0); Mean Platelet Volume 7.9 fL (7.4-10.4); Platelet Count 192 thou/uL (130-400); RBC Distribution Width 13.1 % (11.5-14.5); Red Blood Cell (RBC) Count 3.75 mill/uL (4.20-5.40); White Blood Cell (WBC) Count 7.2 thou/uL (4.8-10.8)
[2021-03-14 15:06] LABS: INR-International Normal Ratio 0.9; PTT 26.7 sec (22.9-36.1); Prothrombin Time 12.3 sec (12.0-14.7)
[2021-03-14 15:13] LABS: ALT (SGPT) 21 U/L (8-55); AST (SGOT) 14 U/L (5-34); Albumin 3.7 g/dL (3.4-4.8); Alkaline Phosphatase 130 U/L (40-110); Anion Gap 12 mmol/L (10-20); BUN (Urea Nitrogen) 11 mg/dL (9.8-20.1); Bilirubin, Total 0.3 mg/dL (0.2-1.2); Calc. Creatinine Clearance 0 mL/min (70-130); Calcium 8.9 mg/dL (7.8-10.44); Carbon Dioxide 25 mmol/L (23-31); Chloride 106 mmol/L (98-107); Globulin 2.3 g/dL (2.4-3.5); Glucose 88 mg/dL (80-115); Potassium 3.9 mmol/L (3.5-5.1); Sodium 139 mmol/L (136-145)
[2021-03-14] MEDS ORDERED: Iopamidol-370 76% 500 ML 1 ML ONE (15:18)
[2021-03-14] MEDS ORDERED: hydrALAZINE 20 MG/ML VIAL SLOW IVP PRN (15:23)
[2021-03-14] MEDS ORDERED: Aspirin Chewable 81 MG TAB ONE ×2 (15:29)
[2021-03-14] MEDS ORDERED: Enoxaparin Sodium 40 MG/0.4 ML SYRINGE SC SCH ×2 (15:30)
[2021-03-14] MEDS ORDERED: Clopidogrel Bisulfate 75 MG TAB PO SCH (15:45)
[2021-03-14 16:18] LABS: INR-International Normal Ratio 0.9; PTT 27.2 sec (22.9-36.1); Prothrombin Time 11.9 sec (12.0-14.7)
[2021-03-14 17:01] LABS: Hemoglobin A1c 5.4 % (4.0-6.0)
[2021-03-14] MEDS: Acetaminophen/Codeine 30-300mg Tablet PO PRN (18:19)
[2021-03-14 18:47] VITALS: BMI 41.0
[2021-03-14] MEDS ORDERED: Atorvastatin Calcium 40 MG TAB PO SCH (21:00)
[2021-03-14] MEDS: Gabapentin 300 MG CAP PO SCH (21:38)
[2021-03-14] MEDS: Atorvastatin Calcium 40 MG TAB PO SCH (21:38)
[2021-03-14] MEDS: traZODone HCl 50 MG TAB PO SCH (21:39)
[2021-03-14] MEDS: Oxybutynin 5 MG TAB PO SCH (21:39)
[2021-03-14] MEDS: Prazosin HCl 1 MG CAP PO SCH (21:39)
[2021-03-14] MEDS: rOPINIRole HCl 2 MG TAB PO SCH (21:40)
[2021-03-14] MEDS ORDERED: Morphine 2 MG/ML VIAL SLOW IVP PRN (22:14)
[2021-03-14] MEDS ORDERED: Fentanyl 100 MCG/2 ML VIAL SLOW IVP PRN (22:16)
[2021-03-14 22:45] LABS: Amphetamine Not Detected (NotDetected); Barbiturates Screen Not Detected (NotDetected); Benzodiazepine Screen Not Detected (NotDetected); Cocaine Metabolite Screen Not Detected (NotDetected); Medtox Control Line Valid? VALID (VALID); Medtox Reader # READER 4; Methadone Not Detected (NotDetected); Methamphetamine Not Detected (NotDetected); Opiate Screen Detected (NotDetected); Oxycodone Screen Not Detected (NotDetected); Phencyclidine (PCP) Not Detected (NotDetected); THC/Cannabinoid Screen Not Detected (NotDetected); Tricyclic Screen Not Detected (NotDetected)
[2021-03-15] MEDS: Acetaminophen/Codeine 30-300mg Tablet PO PRN ×3 (05:10→22:19)
[2021-03-15] MEDS: Levothyroxine Sodium 88 MCG TAB PO SCH (05:11)
[2021-03-15 06:10] LABS: Cardiac Risk 2.3 (Less than 4.5)
[2021-03-15] MEDS ORDERED: Non-Formulary Item 1 EACH (Linaclotide [Linzess] 290 MCG Capsule) PO SCH (09:00)
[2021-03-15] MEDS ORDERED: Clopidogrel Bisulfate 75 MG TAB PO SCH ×2 (09:00)
[2021-03-15] MEDS ORDERED: Aspirin 81 mg Enteric Coated Tablet PO SCH (09:00)
[2021-03-15] MEDS ORDERED: Enoxaparin Sodium 40 MG/0.4 ML SYRINGE SC SCH (09:00)
[2021-03-15] MEDS: Gabapentin 300 MG CAP PO SCH ×3 (09:17→22:20)
[2021-03-15] MEDS: Aspirin 81 mg Enteric Coated Tablet PO SCH (09:17)
[2021-03-15] MEDS: Clopidogrel Bisulfate 75 MG TAB PO SCH (09:18)
[2021-03-15] MEDS: Enoxaparin Sodium 40 MG/0.4 ML SYRINGE SC SCH (09:18)
[2021-03-15] MEDS: lamoTRIgine 100 MG TAB PO SCH (09:18)
[2021-03-15] MEDS: Oxybutynin 5 MG TAB PO SCH ×2 (09:19→22:20)
[2021-03-15] MEDS: clonazePAM 0.5 MG TAB PO PRN ×2 (09:21→22:19)
[2021-03-15] MEDS ORDERED: Metoclopramide HCl 10 MG/2 ML VIAL IVP SCH (10:15)
[2021-03-15] MEDS ORDERED: Ketorolac Tromethamine 30 MG/ML VIAL IVP SCH (10:15)
[2021-03-15] MEDS: Ketorolac Tromethamine 30 MG/ML VIAL IVP PRN (18:29)
[2021-03-15] MEDS: Atorvastatin Calcium 40 MG TAB PO SCH (22:21)
[2021-03-15] MEDS: rOPINIRole HCl 2 MG TAB PO SCH (22:21)
[2021-03-15] MEDS: traZODone HCl 50 MG TAB PO SCH (22:21)
[2021-03-15] MEDS: Prazosin HCl 1 MG CAP PO SCH (22:22)
[2021-03-16] MEDS: Levothyroxine Sodium 88 MCG TAB PO SCH (05:38)
[2021-03-16] MEDS: Ketorolac Tromethamine 30 MG/ML VIAL IVP PRN (05:38)
[2021-03-16 08:02] VITALS: BP 111/73; TEMP 98.3
[2021-03-16] MEDS: Enoxaparin Sodium 40 MG/0.4 ML SYRINGE SC SCH (08:59)
[2021-03-16] MEDS: Clopidogrel Bisulfate 75 MG TAB PO SCH (09:00)
[2021-03-16] MEDS: Aspirin 81 mg Enteric Coated Tablet PO SCH (09:00)
[2021-03-16] MEDS: lamoTRIgine 100 MG TAB PO SCH (09:00)
[2021-03-16] MEDS: Gabapentin 300 MG CAP PO SCH (09:00)
[2021-03-16] MEDS: Acetaminophen/Codeine 30-300mg Tablet PO PRN (09:01)
[2021-03-16] MEDS: Oxybutynin 5 MG TAB PO SCH (09:01)
[2021-03-16] MEDS: clonazePAM 0.5 MG TAB PO PRN (09:04)
== END 2021-03-16 11:30 | disposition home health service (06) | DRG 92 ==
LOC: ERS 14:01 → 2SE 15:07
PROVIDERS: ADMIT Internal Medicine; ATTEND Internal Medicine
DX: R47.01 Aphasia (principal); G45.9 Transient cerebral ischemic attack, unspecified; I69.351 Hemiplegia and hemiparesis following cerebral infarction affecting right dominant side; F19.10 Other psychoactive substance abuse, uncomplicated; I12.9 Hypertensive chronic kidney disease with stage 1 through stage 4 chronic kidney disease, or unspecified chronic kidney disease; E11.22 Type 2 diabetes mellitus with diabetic chronic kidney disease; R91.1 Solitary pulmonary nodule; J44.9 Chronic obstructive pulmonary disease, unspecified; K21.9 Gastro-esophageal reflux disease without esophagitis; G44.209 Tension-type headache, unspecified, not intractable; E78.5 Hyperlipidemia, unspecified; E03.9 Hypothyroidism, unspecified; N18.30 Chronic kidney disease, stage 3 unspecified; Z95.0 Presence of cardiac pacemaker; Z88.5 Allergy status to narcotic agent; Z88.8 Allergy status to other drugs, medicaments and biological substances; Z79.82 Long term (current) use of aspirin; Z79.02 Long term (current) use of antithrombotics/antiplatelets; Z79.899 Other long term (current) drug therapy; Z87.891 Personal history of nicotine dependence; I69.322 Dysarthria following cerebral infarction; Z71.51 Drug abuse counseling and surveillance of drug abuser
CPT/HCPCS: 36415; 36416; 70450; 70496; 70498; 71045; 80061; 80306; 83036; 93306; 94760; 95712; 95819; 95957; J1650; J1885; J2765; J3010; Q9967

== ENCOUNTER 2021-05-26 09:29 | Outpatient (CLI) | payer MEDICARE, OTHER ==
[2021-05-26] MEDS ORDERED: Iopamidol-370 76% 500 ML 1 ML ONE (09:54)
== END 2021-05-26 09:30 | disposition home or self-care (01) ==
LOC: BICCT 09:29
PROVIDERS: ATTEND Urology
DX: R10.2 Pelvic and perineal pain (principal); N32.89 Other specified disorders of bladder; Z96.0 Presence of urogenital implants
CPT/HCPCS: 72193; 82565; Q9967

== ENCOUNTER 2021-06-12 14:33 | Emergency (ER) | payer MEDICARE, OTHER ==
[2021-06-12] MEDS ORDERED: Morphine 4 MG/ML VIAL ONE (16:26)
[2021-06-12] MEDS ORDERED: Fentanyl 100 MCG/2 ML VIAL ONE (16:47)
[2021-06-12 17:20] LABS: #Basophils 0.1 thou/uL (0.0-0.2); #Eosinphils 0.4 thou/uL (0.0-0.7); #Lymphocytes 2.7 thou/uL (1.20-3.40); #Monocytes 0.5 thou/uL (0.11-0.59); #Neutrophils 4.6 thou/uL (1.40-6.50); %Basophils 1.1 % (0.0-1.0); %Eosinophils 5.2 % (0.0-10.0); %Lymphocytes 31.8 % (21.0-51.0); %Monocytes 6.4 % (0.0-10.0); %Neutrophils 55.4 % (42.0-75.0); Hemoglobin 13.2 g/dL (12.0-16.0); Mean Corpuscular Hemoglobin 30.8 pg (27.0-31.0); Mean Corpuscular Volume 93.3 fL (78.0-98.0); Mean Platelet Volume 7.8 fL (7.4-10.4); Platelet Count 189 thou/uL (130-400); RBC Distribution Width 13.7 % (11.5-14.5); Red Blood Cell (RBC) Count 4.29 mill/uL (4.20-5.40); White Blood Cell (WBC) Count 8.3 thou/uL (4.8-10.8)
[2021-06-12 17:42] LABS: ALT (SGPT) 8 U/L (8-55); AST (SGOT) 14 U/L (5-34); Albumin 3.8 g/dL (3.4-4.8); Alkaline Phosphatase 119 U/L (40-110); Anion Gap 11 mmol/L (10-20); BUN (Urea Nitrogen) 7 mg/dL (9.8-20.1); Bilirubin, Total 0.4 mg/dL (0.2-1.2); Calc. Creatinine Clearance 0 mL/min (70-130); Calcium 9.3 mg/dL (7.8-10.44); Carbon Dioxide 29 mmol/L (23-31); Chloride 106 mmol/L (98-107); Globulin 2.1 g/dL (2.4-3.5); Glucose 91 mg/dL (80-115); Potassium 4.2 mmol/L (3.5-5.1); Protein, Total 5.9 g/dL (5.8-8.1); Sodium 142 mmol/L (136-145)
[2021-06-12 18:19] LABS: Bilirubin Negative (Negative); Blood, Urine 3+ (Negative); Clarity Turbid (Clear); Glucose, Urine (Dipstick) Normal (Negative); Ketone, Urine Negative (Negative); Leukocyte 500 Leu/uL (Negative); Nitrite Negative (Negative); Protein, Urine (Dipstick) 50 mg/dL (Neg-Trace); RBC/HPF Greater than 50 HPF (0-3); Specific Gravity, Urine 1.007 (1.002-1.036); Squamous Epithelial 0-3 HPF (0-3); Urobilinogen Normal mg/dL (Less than 2); WBC/HPF Greater than 50 HPF (0-3)
[2021-06-12 18:22] LABS: Bacteria/HPF 1+ HPF (None Seen)
== END 2021-06-12 19:34 | disposition home or self-care (01) ==
LOC: ERS 14:33
DX: T83.020A Displacement of cystostomy catheter, initial encounter (principal); N39.0 Urinary tract infection, site not specified; E11.9 Type 2 diabetes mellitus without complications; E03.9 Hypothyroidism, unspecified; K21.9 Gastro-esophageal reflux disease without esophagitis; E78.5 Hyperlipidemia, unspecified; J44.9 Chronic obstructive pulmonary disease, unspecified; Z87.891 Personal history of nicotine dependence
CPT/HCPCS: 36415; 51702; 80053; 81003; 81015; 85025; 87077; 87086; 87186; 96374; J2270; J3010

== ENCOUNTER 2021-06-17 11:26 | Outpatient (CLI) | payer MEDICARE, OTHER ==
[2021-06-18 00:35] LABS: SARS-CoV-2 PCR by NAA Not Detected (NotDetected)
== END 2021-06-17 11:27 | disposition home or self-care (01) ==
LOC: LABBT 11:26
PROVIDERS: ATTEND Urology
DX: Z01.818 Encounter for other preprocedural examination (principal); N31.9 Neuromuscular dysfunction of bladder, unspecified; N32.89 Other specified disorders of bladder; Z20.822 Contact with and (suspected) exposure to COVID-19
CPT/HCPCS: 93005; U0003; U0005; 93010

== ENCOUNTER 2021-06-22 05:52 | Day surgery (SDC) | payer MEDICARE, OTHER ==
[2021-06-21 10:31] VITALS: BMI 35.0
[2021-06-22] MEDS ORDERED: Famotidine/PF 20 mg/2ml Vial ONE (06:32)
[2021-06-22] MEDS ORDERED: SUGAMMADEX SODIUM 200 MG/2 ML VIAL ONE (06:32)
[2021-06-22] MEDS ORDERED: Fentanyl 100 MCG/2 ML VIAL ONE ×4 (06:32→10:21)
[2021-06-22 06:41] LABS: #Basophils 0.1 thou/uL (0.0-0.2); #Eosinphils 0.6 thou/uL (0.0-0.7); #Lymphocytes 2.1 thou/uL (1.20-3.40); #Monocytes 0.5 thou/uL (0.11-0.59); #Neutrophils 4.6 thou/uL (1.40-6.50); %Basophils 1.1 % (0.0-1.0); %Eosinophils 7.1 % (0.0-10.0); %Neutrophils 58.8 % (42.0-75.0); Hemoglobin 12.5 g/dL (12.0-16.0); Mean Corpuscular HGB CONC 33.4 g/dL (32.0-36.0); Mean Corpuscular Hemoglobin 30.8 pg (27.0-31.0); Mean Corpuscular Volume 92.2 fL (78.0-98.0); Mean Platelet Volume 7.9 fL (7.4-10.4); Platelet Count 186 thou/uL (130-400); RBC Distribution Width 13.7 % (11.5-14.5); Red Blood Cell (RBC) Count 4.07 mill/uL (4.20-5.40); White Blood Cell (WBC) Count 7.8 thou/uL (4.8-10.8)
[2021-06-22] MEDS ORDERED: Bupivacaine 0.25% HCL 30 ML VIAL ONE (06:57)
[2021-06-22 07:01] LABS: Anion Gap 12 mmol/L (10-20); BUN (Urea Nitrogen) 10 mg/dL (9.8-20.1); Calc. Creatinine Clearance 69 mL/min (70-130); Carbon Dioxide 25 mmol/L (23-31); Chloride 109 mmol/L (98-107); Glucose 107 mg/dL (80-115); Potassium 3.8 mmol/L (3.5-5.1); Sodium 142 mmol/L (136-145)
[2021-06-22] MEDS ORDERED: PHENYLEPHRINE-NS 100 MCG/ML 10 ML SYRINGE ONE (07:37)
[2021-06-22] MEDS ORDERED: PROPOFOL 200 MG/20 ML VIAL ONE (07:37)
[2021-06-22] MEDS ORDERED: Ondansetron PF 4 MG/2 ML Vial ONE (07:37)
[2021-06-22] MEDS ORDERED: Lidocaine 1% PF 5 ML VIAL ONE (07:37)
[2021-06-22] MEDS ORDERED: Rocuronium Bromide 10 MG/ML (10ML VIAL) ONE (07:37)
[2021-06-22] MEDS ORDERED: Metoclopramide HCl 10 MG/2 ML VIAL ONE (07:37)
[2021-06-22] MEDS ORDERED: HYDROmorphone 0.5 MG/0.5 ML SYRINGE ONE ×2 (09:38→09:51)
[2021-06-22] MEDS ORDERED: Ondansetron ODT 4 MG TAB ONE (11:37)
== END 2021-06-22 12:00 | disposition home or self-care (01) ==
LOC: SDC 05:52
PROVIDERS: ATTEND Urology
PROC: 0T2BX0Z Change Drainage Device in Bladder, External Approach (ICD-10-PCS; principal; 2021-06-22)
PROC: 0JH70DZ Insertion of Multiple Array Stimulator Generator into Back Subcutaneous Tissue and Fascia, Open Approach (ICD-10-PCS; 2021-06-22)
PROC: 01HY0MZ Insertion of Neurostimulator Lead into Peripheral Nerve, Open Approach (ICD-10-PCS; 2021-06-22)
DX: N39.41 Urge incontinence (principal); N32.89 Other specified disorders of bladder; N31.9 Neuromuscular dysfunction of bladder, unspecified; F17.200 Nicotine dependence, unspecified, uncomplicated; Z88.5 Allergy status to narcotic agent; Z95.0 Presence of cardiac pacemaker
CPT/HCPCS: 36415; 76000; 80048; 85025; C1778; J0690; J1170; J2405; J2704; J2765; J3010; Q0162; S0020; S0028

== ENCOUNTER 2021-06-24 11:19 | Outpatient (CLI) | payer MEDICARE, OTHER ==
[2021-06-25 00:24] LABS: SARS-CoV-2 PCR by NAA Not Detected (NotDetected)
== END 2021-06-24 11:20 | disposition home or self-care (01) ==
LOC: LABBT 11:19
PROVIDERS: ATTEND Urology
DX: Z01.812 Encounter for preprocedural laboratory examination (principal); N31.9 Neuromuscular dysfunction of bladder, unspecified; N32.89 Other specified disorders of bladder; Z20.822 Contact with and (suspected) exposure to COVID-19
CPT/HCPCS: U0003; U0005

== ENCOUNTER 2021-06-29 16:29 | Outpatient (CLI) | payer MEDICARE, OTHER ==
[2021-06-30 12:46] LABS: SARS-CoV-2 PCR by NAA Not Detected (NotDetected)
== END 2021-06-29 16:30 | disposition home or self-care (01) ==
LOC: LABBT 16:29
PROVIDERS: ATTEND Urology
DX: Z01.812 Encounter for preprocedural laboratory examination (principal); N31.9 Neuromuscular dysfunction of bladder, unspecified; N32.89 Other specified disorders of bladder; Z20.822 Contact with and (suspected) exposure to COVID-19
CPT/HCPCS: U0003; U0005

== ENCOUNTER 2021-07-02 06:07 | Day surgery (SDC) | payer MEDICARE, OTHER ==
[2021-06-28 11:32] VITALS: BMI 35.0
[2021-07-02] MEDS ORDERED: ceFAZolin 2 GM/DEX 5% 100 ML BAG ONE (06:31)
[2021-07-02] MEDS ORDERED: Bupivacaine 0.25% HCL 30 ML VIAL ONE (08:49)
[2021-07-02] MEDS ORDERED: Fentanyl 100 MCG/2 ML VIAL ONE ×3 (08:58→10:41)
[2021-07-02] MEDS ORDERED: Sterile Water 10 ML ONE (08:58)
[2021-07-02] MEDS ORDERED: SUGAMMADEX SODIUM 200 MG/2 ML VIAL ONE (08:58)
[2021-07-02] MEDS ORDERED: Rocuronium Bromide 10 MG/ML (10ML VIAL) ONE (09:11)
[2021-07-02] MEDS ORDERED: PROPOFOL 200 MG/20 ML VIAL ONE (09:11)
[2021-07-02] MEDS ORDERED: Lidocaine 1% PF 5 ML VIAL ONE (09:11)
[2021-07-02] MEDS ORDERED: Ondansetron PF 4 MG/2 ML Vial ONE (09:11)
[2021-07-02] MEDS ORDERED: Ketorolac Tromethamine 30 MG/ML VIAL ONE (10:47)
[2021-07-02] MEDS ORDERED: HYDROcodone/Acetaminophen 5/325 mg Tablet ONE (11:21)
== END 2021-07-02 12:10 | disposition home or self-care (01) ==
LOC: SDC 06:07
PROVIDERS: ATTEND Urology
PROC: 0JH70BZ Insertion of Single Array Stimulator Generator into Back Subcutaneous Tissue and Fascia, Open Approach (ICD-10-PCS; principal; 2021-07-02)
PROC: 01HY0MZ Insertion of Neurostimulator Lead into Peripheral Nerve, Open Approach (ICD-10-PCS; 2021-07-02)
DX: N39.41 Urge incontinence (principal); N32.89 Other specified disorders of bladder; Z79.82 Long term (current) use of aspirin; Z79.899 Other long term (current) drug therapy; Z88.5 Allergy status to narcotic agent
CPT/HCPCS: J1885; J2405; J2704; J3010; S0020

== ENCOUNTER 2021-08-02 14:28 | Inpatient (IN) | payer MEDICARE, OTHER ==
[2021-08-02] MEDS ORDERED: Acetaminophen 500 MG TAB ONE (15:40)
[2021-08-02] MEDS ORDERED: Bisacodyl 10 MG SUPP PR PRN (16:00)
[2021-08-02] MEDS ORDERED: Acetaminophen 325 MG TAB PO PRN (16:00)
[2021-08-02] MEDS ORDERED: niCARdipine 25 MG in Sodium Chloride 0.9% 250 ML 240 ML IVPB PRN (16:00)
[2021-08-02] MEDS ORDERED: Docusate 100 MG CAP PO PRN (16:00)
[2021-08-02] MEDS ORDERED: hydrALAZINE 20 MG/ML VIAL SLOW IVP PRN (16:00)
[2021-08-02] MEDS ORDERED: Labetalol HCl 100 MG/20 ML VIAL SLOW IVP PRN (16:00)
[2021-08-02] MEDS ORDERED: Milk Of Magnesia 30 ML UDCUP PO PRN (16:00)
[2021-08-02] MEDS: Communication Order-Pharmacy FS SCH (19:42)
[2021-08-02] MEDS: Sodium Chloride 0.9% 1,000 ML IV SCH (20:20)
[2021-08-02] MEDS: Atorvastatin Calcium 40 MG TAB PO SCH (20:22)
[2021-08-02] MEDS: HYDROcodone/Acetaminophen 5/325 mg Tablet PO PRN (21:45)
[2021-08-03] MEDS ORDERED: HYDROmorphone 0.5 MG/0.5 ML SYRINGE SLOW IVP SCH (02:45)
[2021-08-03] MEDS: Ondansetron PF 4 MG/2 ML Vial IVP PRN ×2 (04:00→21:03)
[2021-08-03] MEDS ORDERED: Lorazepam 2 MG/ML VIAL SLOW IVP SCH (04:30)
[2021-08-03] MEDS: Sodium Chloride 0.9% 1,000 ML IV SCH ×2 (05:28→17:46)
[2021-08-03] MEDS: Levothyroxine Sodium 88 MCG TAB PO SCH (10:13)
[2021-08-03] MEDS: HYDROcodone/Acetaminophen 5/325 mg Tablet PO PRN ×2 (10:16→20:00)
[2021-08-03 14:14] LABS: #Basophils 0.1 thou/uL (0.0-0.2); #Eosinphils 0.3 thou/uL (0.0-0.7); #Lymphocytes 2.3 thou/uL (1.20-3.40); #Monocytes 0.4 thou/uL (0.11-0.59); %Basophils 0.7 % (0.0-1.0); %Eosinophils 4.2 % (0.0-10.0); %Lymphocytes 33.1 % (21.0-51.0); %Monocytes 5.1 % (0.0-10.0); %Neutrophils 56.8 % (42.0-75.0); Mean Corpuscular HGB CONC 32.4 g/dL (32.0-36.0); Mean Corpuscular Hemoglobin 30.5 pg (27.0-31.0); Mean Corpuscular Volume 94.2 fL (78.0-98.0); Mean Platelet Volume 8.4 fL (7.4-10.4); Platelet Count 165 thou/uL (130-400); Red Blood Cell (RBC) Count 3.94 mill/uL (4.20-5.40); White Blood Cell (WBC) Count 7.1 thou/uL (4.8-10.8)
[2021-08-03 14:28] LABS: Hemoglobin A1c 6.3 % (4.0-6.0); Phosphorus 3.8 mg/dL (2.3-4.7)
[2021-08-03 14:33] LABS: ALT (SGPT) 8 U/L (8-55); AST (SGOT) 13 U/L (5-34); Albumin 3.6 g/dL (3.4-4.8); Alkaline Phosphatase 110 U/L (40-110); Anion Gap 14 mmol/L (10-20); BUN (Urea Nitrogen) 9 mg/dL (9.8-20.1); Bilirubin, Total 0.4 mg/dL (0.2-1.2); Calc. Creatinine Clearance 78 mL/min (70-130); Calcium 8.6 mg/dL (7.8-10.44); Carbon Dioxide 22 mmol/L (23-31); Cardiac Risk 2.7 (Less than 4.5); Chloride 110 mmol/L (98-107); Cholesterol 123 mg/dl (< 200 Desired); Glucose 95 mg/dL (80-115); HDL Cholesterol 46 mg/dL (>60 Neg Risk); LDL Cholesterol, Calculated 59 mg/dL; Magnesium 1.9 mg/dL (1.6-2.6); Potassium 4.5 mmol/L (3.5-5.1); Protein, Total 5.6 g/dL (5.8-8.1); Sodium 141 mmol/L (136-145); Triglycerides 90 mg/dL (Less than 150)
[2021-08-03 14:43] LABS: SARS-CoV-2 NAA Rapid Test Not Detected (NotDetected)
[2021-08-03] MEDS: Lactated Ringer's 1,000 ML IV SCH (15:59)
[2021-08-03 16:31] LABS: INR-International Normal Ratio 1.1; PTT 28.9 sec (22.9-36.1); Prothrombin Time 13.8 sec (12.0-14.7)
[2021-08-03] MEDS: Communication Order-Pharmacy FS SCH (19:06)
[2021-08-03] MEDS: Atorvastatin Calcium 40 MG TAB PO SCH (20:00)
[2021-08-04] MEDS: Ondansetron PF 4 MG/2 ML Vial IVP PRN ×3 (03:16→18:37)
[2021-08-04 03:56] LABS: #Basophils 0.1 thou/uL (0.0-0.2); #Eosinphils 0.3 thou/uL (0.0-0.7); #Lymphocytes 2.5 thou/uL (1.20-3.40); #Monocytes 0.5 thou/uL (0.11-0.59); #Neutrophils 4.8 thou/uL (1.40-6.50); %Basophils 0.8 % (0.0-1.0); %Eosinophils 3.3 % (0.0-10.0); %Lymphocytes 30.9 % (21.0-51.0); %Monocytes 5.8 % (0.0-10.0); %Neutrophils 59.2 % (42.0-75.0); Hemoglobin 11.5 g/dL (12.0-16.0); Mean Corpuscular HGB CONC 33.3 g/dL (32.0-36.0); Mean Corpuscular Hemoglobin 31.2 pg (27.0-31.0); Mean Corpuscular Volume 93.5 fL (78.0-98.0); Mean Platelet Volume 8.1 fL (7.4-10.4); Platelet Count 176 thou/uL (130-400); RBC Distribution Width 13.8 % (11.5-14.5); White Blood Cell (WBC) Count 8.2 thou/uL (4.8-10.8)
[2021-08-04 04:16] LABS: ALT (SGPT) 8 U/L (8-55); AST (SGOT) 10 U/L (5-34); Albumin 3.6 g/dL (3.4-4.8); Alkaline Phosphatase 106 U/L (40-110); Anion Gap 14 mmol/L (10-20); BUN (Urea Nitrogen) 9 mg/dL (9.8-20.1); Bilirubin, Total 0.5 mg/dL (0.2-1.2); Calc. Creatinine Clearance 82 mL/min (70-130); Calcium 9.3 mg/dL (7.8-10.44); Carbon Dioxide 22 mmol/L (23-31); Chloride 109 mmol/L (98-107); Glucose 89 mg/dL (80-115); Magnesium 1.8 mg/dL (1.6-2.6); Phosphorus 3.4 mg/dL (2.3-4.7); Potassium 4.4 mmol/L (3.5-5.1); Protein, Total 5.6 g/dL (5.8-8.1); Sodium 141 mmol/L (136-145)
[2021-08-04] MEDS: Lactated Ringer's 1,000 ML IV SCH (05:11)
[2021-08-04] MEDS: HYDROcodone/Acetaminophen 5/325 mg Tablet PO PRN ×3 (06:00→20:59)
[2021-08-04] MEDS: Levothyroxine Sodium 88 MCG TAB PO SCH (08:20)
[2021-08-04] MEDS: Clopidogrel Bisulfate 75 MG TAB PO SCH (09:35)
[2021-08-04] MEDS: clonazePAM 0.5 MG TAB PO PRN (13:12)
[2021-08-04] MEDS: Nystatin Ointment 15 GM TUBE TOP SCH (20:27)
[2021-08-04] MEDS: Gabapentin 300 MG CAP PO SCH (20:28)
[2021-08-04] MEDS: Atorvastatin Calcium 40 MG TAB PO SCH (20:29)
[2021-08-04] MEDS: Metoclopramide HCl 10 MG TAB PO SCH (20:30)
[2021-08-04] MEDS: Oxybutynin 5 MG TAB PO SCH (20:31)
[2021-08-04] MEDS ORDERED: traZODone HCl 50 MG TAB PO SCH (21:00)
[2021-08-04] MEDS ORDERED: traZODone HCl 150 MG TAB PO SCH (21:00)
[2021-08-04] MEDS ORDERED: rOPINIRole HCl 2 MG TAB PO SCH (21:00)
[2021-08-04] MEDS ORDERED: lamoTRIgine 100 MG TAB PO SCH (21:00)
[2021-08-04] MEDS ORDERED: Prazosin HCl 1 MG CAP PO SCH (21:00)
[2021-08-04] MEDS ORDERED: Aspirin 81 mg Enteric Coated Tablet PO SCH (21:00)
[2021-08-04] MEDS ORDERED: lamoTRIgine 25 MG TAB PO SCH (21:00)
[2021-08-05 05:30] VITALS: BMI 34.1
[2021-08-05 05:30] LABS: #Basophils 0.1 thou/uL (0.0-0.2); #Eosinphils 0.2 thou/uL (0.0-0.7); #Lymphocytes 2.5 thou/uL (1.20-3.40); #Monocytes 0.5 thou/uL (0.11-0.59); %Basophils 0.9 % (0.0-1.0); %Lymphocytes 34.1 % (21.0-51.0); %Monocytes 7.1 % (0.0-10.0); Hemoglobin 11.5 g/dL (12.0-16.0); Mean Corpuscular HGB CONC 32.9 g/dL (32.0-36.0); Mean Corpuscular Hemoglobin 30.6 pg (27.0-31.0); Mean Platelet Volume 8.1 fL (7.4-10.4); Platelet Count 175 thou/uL (130-400); RBC Distribution Width 13.8 % (11.5-14.5); Red Blood Cell (RBC) Count 3.75 mill/uL (4.20-5.40); White Blood Cell (WBC) Count 7.3 thou/uL (4.8-10.8)
[2021-08-05] MEDS: HYDROcodone/Acetaminophen 5/325 mg Tablet PO PRN ×2 (05:34→11:02)
[2021-08-05 05:55] LABS: ALT (SGPT) 8 U/L (8-55); AST (SGOT) 11 U/L (5-34); Albumin 3.6 g/dL (3.4-4.8); Alkaline Phosphatase 106 U/L (40-110); Anion Gap 13 mmol/L (10-20); BUN (Urea Nitrogen) 6 mg/dL (9.8-20.1); Bilirubin, Total 0.4 mg/dL (0.2-1.2); Calc. Creatinine Clearance 80 mL/min (70-130); Carbon Dioxide 26 mmol/L (23-31); Chloride 110 mmol/L (98-107); Globulin 1.8 g/dL (2.4-3.5); Glucose 93 mg/dL (80-115); Magnesium 1.9 mg/dL (1.6-2.6); Potassium 3.5 mmol/L (3.5-5.1); Protein, Total 5.4 g/dL (5.8-8.1); Sodium 145 mmol/L (136-145)
[2021-08-05] MEDS ORDERED: Levothyroxine Sodium 88 MCG TAB PO SCH (06:00)
[2021-08-05] MEDS: Gabapentin 300 MG CAP PO SCH (08:43)
[2021-08-05] MEDS: Clopidogrel Bisulfate 75 MG TAB PO SCH (08:43)
[2021-08-05] MEDS: Metoclopramide HCl 10 MG TAB PO SCH (08:43)
[2021-08-05] MEDS: Oxybutynin 5 MG TAB PO SCH (08:43)
[2021-08-05] MEDS: Nystatin Ointment 15 GM TUBE TOP SCH (08:44)
[2021-08-05] MEDS ORDERED: FLU VACC QS2021-22(65YR UP)/PF 240 MCG/0.7 ML SYRINGE IM ONE (09:00)
[2021-08-05] MEDS ORDERED: Linaclotide [Linzess] 290 MCG Capsule PO SCH (09:00)
[2021-08-05] MEDS ORDERED: Multivitamin W/ Minerals 1 TAB PO SCH (09:00)
[2021-08-05] MEDS: Ondansetron PF 4 MG/2 ML Vial IVP PRN (10:02)
[2021-08-05] MEDS ORDERED: Saccharomyces boulardii 250 MG CAP PO SCH (10:30)
[2021-08-05 12:07] VITALS: BP 160/76; TEMP 97.8
[2021-08-05] MEDS: clonazePAM 0.5 MG TAB PO PRN (12:31)
[2021-08-06] MEDS ORDERED: Saccharomyces boulardii 250 MG CAP PO SCH (09:00)
== END 2021-08-05 15:35 | disposition home health service (06) | DRG 92 ==
LOC: ERS 14:28 → CCU 16:09 → NEURO 08-04 16:05
PROVIDERS: ADMIT Family Medicine; ATTEND Family Medicine
DX: R47.01 Aphasia (principal); I69.351 Hemiplegia and hemiparesis following cerebral infarction affecting right dominant side; N39.0 Urinary tract infection, site not specified; Z92.82 Status post administration of tPA (rtPA) in a different facility within the last 24 hours prior to admission to current facility; I10 Essential (primary) hypertension; E78.5 Hyperlipidemia, unspecified; E11.9 Type 2 diabetes mellitus without complications; E03.9 Hypothyroidism, unspecified; J44.9 Chronic obstructive pulmonary disease, unspecified; Z96.651 Presence of right artificial knee joint; Z96.611 Presence of right artificial shoulder joint; F43.10 Post-traumatic stress disorder, unspecified; F41.9 Anxiety disorder, unspecified; G89.29 Other chronic pain; K21.9 Gastro-esophageal reflux disease without esophagitis; E78.00 Pure hypercholesterolemia, unspecified; F31.70 Bipolar disorder, currently in remission, most recent episode unspecified; N31.9 Neuromuscular dysfunction of bladder, unspecified; Z20.822 Contact with and (suspected) exposure to COVID-19; Z79.899 Other long term (current) drug therapy; Z95.0 Presence of cardiac pacemaker; Z90.49 Acquired absence of other specified parts of digestive tract; Z90.710 Acquired absence of both cervix and uterus; Z87.891 Personal history of nicotine dependence; Z88.5 Allergy status to narcotic agent; Z88.8 Allergy status to other drugs, medicaments and biological substances; Z79.82 Long term (current) use of aspirin; Z98.0 Intestinal bypass and anastomosis status
CPT/HCPCS: 36415; 36416; 70450; 74230; 80053; 80061; 83036; 83735; 84100; 84443; 85025; 85610; 85730; 86850; 86900; 86901; 93005; 93010; 93306; 93970; J1170; J2060; J2405; J7050; J7120; U0002

== ENCOUNTER 2021-09-10 17:17 | Observation (INO) | payer MEDICARE, OTHER ==
[2021-09-10 19:16] VITALS: BMI 37.5
[2021-09-10] MEDS ORDERED: Bisacodyl 5 MG TAB PO PRN (21:22)
[2021-09-10] MEDS ORDERED: Calcium Carbonate 500 MG ChewTAB PO PRN (21:22)
[2021-09-10] MEDS ORDERED: Senokot S 8.6-50 MG TAB PO PRN (21:22)
[2021-09-10] MEDS ORDERED: Acetaminophen 325 MG TAB PO PRN (21:22)
[2021-09-10] MEDS ORDERED: Ondansetron PF 4 MG/2 ML Vial IVP PRN (21:22)
[2021-09-10] MEDS ORDERED: Melatonin 3 MG TAB PO PRN (21:37)
[2021-09-10] MEDS ORDERED: Atorvastatin Calcium 40 MG TAB PO SCH (22:00)
[2021-09-10] MEDS ORDERED: Metoclopramide HCl 10 MG TAB PO SCH (22:00)
[2021-09-10] MEDS ORDERED: lamoTRIgine 100 MG TAB PO SCH (22:00)
[2021-09-10] MEDS ORDERED: rOPINIRole HCl 2 MG TAB PO SCH (22:00)
[2021-09-10] MEDS ORDERED: Prazosin HCl 1 MG CAP PO SCH (22:00)
[2021-09-10] MEDS ORDERED: traZODone HCl 150 MG TAB PO SCH (22:15)
[2021-09-10] MEDS ORDERED: Gabapentin 300 MG CAP PO SCH (22:15)
[2021-09-10] MEDS ORDERED: Oxybutynin 5 MG TAB PO SCH (22:15)
[2021-09-10] MEDS ORDERED: Acetaminophen/Codeine 30-300mg Tablet PO PRN (22:54)
[2021-09-11] MEDS ORDERED: Aspirin 325 MG TAB PO SCH (02:50)
[2021-09-11] MEDS: Acetaminophen/Codeine 30-300mg Tablet PO PRN ×2 (03:28→15:07)
[2021-09-11] MEDS: Levothyroxine Sodium 88 MCG TAB PO SCH (06:18)
[2021-09-11 06:37] LABS: #Basophils 0.1 thou/uL (0.0-0.2); #Eosinphils 0.4 thou/uL (0.0-0.7); #Lymphocytes 1.6 thou/uL (1.20-3.40); #Monocytes 0.5 thou/uL (0.11-0.59); #Neutrophils 1.8 thou/uL (1.40-6.50); %Basophils 1.2 % (0.0-1.0); %Eosinophils 8.6 % (0.0-10.0); %Lymphocytes 37.1 % (21.0-51.0); %Monocytes 10.5 % (0.0-10.0); %Neutrophils 42.6 % (42.0-75.0); Hemoglobin 11.6 g/dL (12.0-16.0); Mean Corpuscular HGB CONC 32.8 g/dL (32.0-36.0); Mean Corpuscular Hemoglobin 30.9 pg (27.0-31.0); Mean Corpuscular Volume 94.1 fL (78.0-98.0); Mean Platelet Volume 7.7 fL (7.4-10.4); Platelet Count 165 thou/uL (130-400); RBC Distribution Width 14.2 % (11.5-14.5); Red Blood Cell (RBC) Count 3.76 mill/uL (4.20-5.40); White Blood Cell (WBC) Count 4.3 thou/uL (4.8-10.8)
[2021-09-11 06:58] LABS: ALT (SGPT) 8 U/L (8-55); AST (SGOT) 12 U/L (5-34); Albumin 3.5 g/dL (3.4-4.8); Alkaline Phosphatase 97 U/L (40-110); Anion Gap 12 mmol/L (10-20); BUN (Urea Nitrogen) 7 mg/dL (9.8-20.1); Bilirubin, Total 0.2 mg/dL (0.2-1.2); Calc. Creatinine Clearance 69 mL/min (70-130); Calcium 8.8 mg/dL (7.8-10.44); Carbon Dioxide 26 mmol/L (23-31); Cardiac Risk 2.5 (Less than 4.5); Chloride 106 mmol/L (98-107); Cholesterol 118 mg/dl (< 200 Desired); Globulin 2.2 g/dL (2.4-3.5); Glucose 101 mg/dL (80-115); HDL Cholesterol 48 mg/dL (>60 Neg Risk); LDL Cholesterol, Calculated 56 mg/dL; Potassium 4.2 mmol/L (3.5-5.1); Protein, Total 5.7 g/dL (5.8-8.1); Sodium 140 mmol/L (136-145); Triglycerides 68 mg/dL (Less than 150)
[2021-09-11 07:04] LABS: Hemoglobin A1c 5.4 % (4.0-6.0)
[2021-09-11] MEDS ORDERED: Linaclotide [Linzess] 290 MCG Capsule PO SCH (09:00)
[2021-09-11] MEDS: Oxybutynin 5 MG TAB PO SCH ×2 (09:23→21:41)
[2021-09-11] MEDS: Gabapentin 300 MG CAP PO SCH ×3 (09:24→21:54)
[2021-09-11] MEDS: Metoclopramide HCl 10 MG TAB PO SCH ×2 (09:24→21:39)
[2021-09-11] MEDS: lamoTRIgine 100 MG TAB PO SCH (09:24)
[2021-09-11] MEDS: Famotidine/PF 20 mg/2ml Vial SLOW IVP SCH (09:25)
[2021-09-11] MEDS: clonazePAM 0.5 MG TAB PO SCH ×2 (09:25→21:43)
[2021-09-11] MEDS ORDERED: Clopidogrel Bisulfate 75 MG TAB PO SCH (10:15)
[2021-09-11] MEDS: cefTRIAXone\\ROCEPHIN 2 GM in Sodium Chloride 0.9% 100 ML IVPB SCH (14:30)
[2021-09-11] MEDS ORDERED: Prazosin HCl 1 MG CAP PO SCH (21:00)
[2021-09-11] MEDS ORDERED: Atorvastatin Calcium 40 MG TAB PO SCH (21:00)
[2021-09-11] MEDS ORDERED: traZODone HCl 150 MG TAB PO SCH (21:00)
[2021-09-11] MEDS ORDERED: rOPINIRole HCl 2 MG TAB PO SCH (21:00)
[2021-09-11] MEDS ORDERED: Aspirin 81 mg Enteric Coated Tablet PO SCH (21:00)
[2021-09-11] MEDS ORDERED: lamoTRIgine 100 MG TAB PO SCH (21:00)
[2021-09-12] MEDS: Acetaminophen/Codeine 30-300mg Tablet PO PRN ×2 (02:10→10:12)
[2021-09-12] MEDS ORDERED: Transdermal Patch Removal TOP SCH (05:00)
[2021-09-12 05:36] LABS: #Basophils 0.1 thou/uL (0.0-0.2); #Eosinphils 0.5 thou/uL (0.0-0.7); #Lymphocytes 2.3 thou/uL (1.20-3.40); #Monocytes 0.5 thou/uL (0.11-0.59); #Neutrophils 2.3 thou/uL (1.40-6.50); %Basophils 1.2 % (0.0-1.0); %Eosinophils 8.8 % (0.0-10.0); %Lymphocytes 40.9 % (21.0-51.0); %Monocytes 9.3 % (0.0-10.0); %Neutrophils 39.9 % (42.0-75.0); Hemoglobin 12.3 g/dL (12.0-16.0); Mean Corpuscular HGB CONC 33.5 g/dL (32.0-36.0); Mean Corpuscular Hemoglobin 31.8 pg (27.0-31.0); Mean Corpuscular Volume 94.9 fL (78.0-98.0); Mean Platelet Volume 8.3 fL (7.4-10.4); Platelet Count 153 thou/uL (130-400); RBC Distribution Width 13.9 % (11.5-14.5); Red Blood Cell (RBC) Count 3.87 mill/uL (4.20-5.40); White Blood Cell (WBC) Count 5.7 thou/uL (4.8-10.8)
[2021-09-12 06:07] LABS: BUN (Urea Nitrogen) 7 mg/dL (9.8-20.1); Calc. Creatinine Clearance 70 mL/min (70-130); Calcium 8.6 mg/dL (7.8-10.44); Carbon Dioxide 24 mmol/L (23-31); Glucose 82 mg/dL (80-115); Phosphorus 4.1 mg/dL (2.3-4.7)
[2021-09-12 06:16] LABS: Anion Gap 14 mmol/L (10-20); Chloride 107 mmol/L (98-107); Potassium 4.3 mmol/L (3.5-5.1); Sodium 139 mmol/L (136-145)
[2021-09-12] MEDS: Levothyroxine Sodium 88 MCG TAB PO SCH (06:48)
[2021-09-12] MEDS ORDERED: Clopidogrel Bisulfate 75 MG TAB PO SCH (09:00)
[2021-09-12] MEDS: Gabapentin 300 MG CAP PO SCH ×2 (09:21→15:14)
[2021-09-12] MEDS: clonazePAM 0.5 MG TAB PO SCH (09:21)
[2021-09-12] MEDS: Famotidine/PF 20 mg/2ml Vial SLOW IVP SCH (09:21)
[2021-09-12] MEDS: lamoTRIgine 100 MG TAB PO SCH (09:22)
[2021-09-12] MEDS: Metoclopramide HCl 10 MG TAB PO SCH (09:22)
[2021-09-12] MEDS: Oxybutynin 5 MG TAB PO SCH (09:22)
[2021-09-12 11:44] LABS: Troponin I Less than 0.010 ng/mL (< 0.028)
[2021-09-12] MEDS: cefTRIAXone\\ROCEPHIN 2 GM in Sodium Chloride 0.9% 100 ML IVPB SCH (15:14)
[2021-09-12 15:52] VITALS: BP 135/81; TEMP 97.7
[2021-09-12] MEDS ORDERED: Lidocaine 5% Patch TD SCH (17:00)
[2021-09-13] MEDS ORDERED: FLU VACC QS2021-22(65YR UP)/PF 240 MCG/0.7 ML SYRINGE IM ONE (09:00)
== END 2021-09-12 16:50 | disposition home or self-care (01) ==
LOC: NEURO 18:27
PROVIDERS: ADMIT Family Medicine; ATTEND Family Medicine
DX: R42 Dizziness and giddiness (principal); R55 Syncope and collapse; I12.9 Hypertensive chronic kidney disease with stage 1 through stage 4 chronic kidney disease, or unspecified chronic kidney disease; E11.22 Type 2 diabetes mellitus with diabetic chronic kidney disease; N18.31 Chronic kidney disease, stage 3a; N17.9 Acute kidney failure, unspecified; E03.9 Hypothyroidism, unspecified; K21.9 Gastro-esophageal reflux disease without esophagitis; J44.9 Chronic obstructive pulmonary disease, unspecified; N31.9 Neuromuscular dysfunction of bladder, unspecified; N28.1 Cyst of kidney, acquired; F31.70 Bipolar disorder, currently in remission, most recent episode unspecified; M19.90 Unspecified osteoarthritis, unspecified site; E78.5 Hyperlipidemia, unspecified; Z86.73 Personal history of transient ischemic attack (TIA), and cerebral infarction without residual deficits; Z79.02 Long term (current) use of antithrombotics/antiplatelets; Z79.899 Other long term (current) drug therapy; Z88.5 Allergy status to narcotic agent; Z95.0 Presence of cardiac pacemaker
CPT/HCPCS: 70450; 71045; 76770; 80048; 80053; 80061; 83036; 83735; 84100; 84484 ×2; 85025 ×2; 87040; 87086; 93005; 96374; 96375; 96376; 97116 ×2; 97139 ×2; 97535; G0378 ×3; 36415; 93010; J0696; J3490; S0028

== ENCOUNTER 2021-09-30 12:05 | Outpatient (CLI) | payer MEDICARE, OTHER | END 2021-09-30 12:06 | disposition home or self-care (01) | LOC: BICMAMMO 12:05 | PROVIDERS: ATTEND Family Medicine | DX: Z12.31 Encounter for screening mammogram for malignant neoplasm of breast (principal); Z98.890 Other specified postprocedural states | CPT/HCPCS: 77063; 77067 ==

== ENCOUNTER 2021-11-03 12:31 | Outpatient (CLI) | payer MEDICARE, MEDICAID | END 2021-11-03 12:32 | disposition home or self-care (01) | LOC: BICCT 12:31 → CT 12:32 | PROVIDERS: ATTEND Internal Medicine Critical Care Medicine | DX: Z12.2 Encounter for screening for malignant neoplasm of respiratory organs (principal); Z87.891 Personal history of nicotine dependence; R91.1 Solitary pulmonary nodule | CPT/HCPCS: 71271 ==

== ENCOUNTER 2022-01-04 11:10 | Observation (INO) | payer MEDICARE, OTHER ==
[2022-01-04 11:48] LABS: #Eosinphils 0.3 thou/uL (0.0-0.7); #Lymphocytes 2.5 thou/uL (1.20-3.40); #Monocytes 0.5 thou/uL (0.11-0.59); #Neutrophils 3.7 thou/uL (1.40-6.50); %Basophils 0.5 % (0.0-1.0); %Eosinophils 4.3 % (0.0-10.0); %Lymphocytes 35.2 % (21.0-51.0); %Monocytes 7.4 % (0.0-10.0); %Neutrophils 52.6 % (42.0-75.0); Hemoglobin 12.5 g/dL (12.0-16.0); Mean Corpuscular HGB CONC 32.5 g/dL (32.0-36.0); Mean Corpuscular Hemoglobin 30.6 pg (27.0-31.0); Mean Corpuscular Volume 94.2 fL (78.0-98.0); Mean Platelet Volume 7.6 fL (7.4-10.4); Platelet Count 188 thou/uL (130-400); RBC Distribution Width 14.1 % (11.5-14.5); Red Blood Cell (RBC) Count 4.08 mill/uL (4.20-5.40); White Blood Cell (WBC) Count 7.1 thou/uL (4.8-10.8)
[2022-01-04 12:08] LABS: ALT (SGPT) 11 U/L (8-55); AST (SGOT) 19 U/L (5-34); Albumin 4.1 g/dL (3.4-4.8); Alkaline Phosphatase 120 U/L (40-110); Anion Gap 14 mmol/L (10-20); BUN (Urea Nitrogen) 7 mg/dL (9.8-20.1); Bilirubin, Total 0.4 mg/dL (0.2-1.2); Calc. Creatinine Clearance 0 mL/min (70-130); Calcium 8.9 mg/dL (7.8-10.44); Carbon Dioxide 26 mmol/L (23-31); Chloride 102 mmol/L (98-107); Globulin 2.5 g/dL (2.4-3.5); Glucose 100 mg/dL (80-115); Potassium 4.4 mmol/L (3.5-5.1); Protein, Total 6.6 g/dL (5.8-8.1); Sodium 138 mmol/L (136-145)
[2022-01-04] MEDS ORDERED: Acetaminophen 325 MG TAB PO PRN (15:07)
[2022-01-04] MEDS ORDERED: Loperamide HCl 2 MG CAP PO PRN (15:07)
[2022-01-04] MEDS ORDERED: Ondansetron PF 4 MG/2 ML Vial IVP PRN (15:07)
[2022-01-04] MEDS ORDERED: Pantoprazole 40 MG VIAL IVP SCH (15:30)
[2022-01-04 15:46] VITALS: BMI 38.6
[2022-01-04 16:12] LABS: #Basophils 0.1 thou/uL (0.0-0.2); #Eosinphils 0.4 thou/uL (0.0-0.7); #Lymphocytes 2.8 thou/uL (1.20-3.40); #Monocytes 0.6 thou/uL (0.11-0.59); #Neutrophils 3.4 thou/uL (1.40-6.50); %Basophils 0.9 % (0.0-1.0); %Eosinophils 6.1 % (0.0-10.0); %Lymphocytes 38.1 % (21.0-51.0); %Monocytes 7.7 % (0.0-10.0); %Neutrophils 47.1 % (42.0-75.0); Hemoglobin 11.4 g/dL (12.0-16.0); Mean Corpuscular HGB CONC 31.5 g/dL (32.0-36.0); Mean Corpuscular Hemoglobin 29.5 pg (27.0-31.0); Mean Corpuscular Volume 93.9 fL (78.0-98.0); Mean Platelet Volume 7.4 fL (7.4-10.4); Platelet Count 199 thou/uL (130-400); Red Blood Cell (RBC) Count 3.87 mill/uL (4.20-5.40); White Blood Cell (WBC) Count 7.2 thou/uL (4.8-10.8)
[2022-01-04 16:36] LABS: Troponin I Less than 0.010 ng/mL (< 0.028)
[2022-01-04] MEDS: HYDROcodone/Acetaminophen 5/325 mg Tablet PO PRN (17:14)
[2022-01-04] MEDS: Sodium Chloride 0.9% 1,000 ML IV SCH (17:14)
[2022-01-04 19:42] LABS: Troponin I Less than 0.010 ng/mL (< 0.028)
[2022-01-04] MEDS: Pantoprazole 40 MG VIAL IVP SCH (20:03)
[2022-01-04] MEDS: Oxybutynin 5 MG TAB PO SCH (20:04)
[2022-01-04] MEDS: Gabapentin 300 MG CAP PO SCH (20:04)
[2022-01-04] MEDS ORDERED: Atorvastatin Calcium 40 MG TAB PO SCH (21:00)
[2022-01-04] MEDS ORDERED: Prazosin HCl 1 MG CAP PO SCH (21:00)
[2022-01-04] MEDS ORDERED: rOPINIRole HCl 2 MG TAB PO SCH (21:00)
[2022-01-04] MEDS ORDERED: lamoTRIgine 100 MG TAB PO SCH (21:00)
[2022-01-05] MEDS: Sodium Chloride 0.9% 1,000 ML IV SCH (02:47)
[2022-01-05 04:37] LABS: Hemoglobin 11.9 g/dL (12.0-16.0); Mean Corpuscular HGB CONC 32.7 g/dL (32.0-36.0); Mean Corpuscular Hemoglobin 31.4 pg (27.0-31.0); Mean Platelet Volume 8.1 fL (7.4-10.4); Platelet Count 168 thou/uL (130-400); RBC Distribution Width 14.2 % (11.5-14.5); Red Blood Cell (RBC) Count 3.78 mill/uL (4.20-5.40); White Blood Cell (WBC) Count 5.7 thou/uL (4.8-10.8)
[2022-01-05 04:38] LABS: #Eosinphils 0.4 thou/uL (0.0-0.7); #Lymphocytes 2.4 thou/uL (1.20-3.40); #Monocytes 0.5 thou/uL (0.11-0.59); #Neutrophils 2.4 thou/uL (1.40-6.50); %Basophils 0.8 % (0.0-1.0); %Eosinophils 7.1 % (0.0-10.0); %Lymphocytes 41.4 % (21.0-51.0); %Monocytes 8.2 % (0.0-10.0); %Neutrophils 42.6 % (42.0-75.0)
[2022-01-05 04:58] LABS: ALT (SGPT) 10 U/L (8-55); AST (SGOT) 21 U/L (5-34); Albumin 3.4 g/dL (3.4-4.8); Alkaline Phosphatase 111 U/L (40-110); Anion Gap 16 mmol/L (10-20); BUN (Urea Nitrogen) 6 mg/dL (9.8-20.1); Bilirubin, Total 0.3 mg/dL (0.2-1.2); Calc. Creatinine Clearance 72 mL/min (70-130); Calcium 8.4 mg/dL (7.8-10.44); Carbon Dioxide 19 mmol/L (23-31); Chloride 111 mmol/L (98-107); Globulin 2.4 g/dL (2.4-3.5); Glucose 85 mg/dL (80-115); Potassium 4.9 mmol/L (3.5-5.1); Protein, Total 5.8 g/dL (5.8-8.1); Sodium 141 mmol/L (136-145)
[2022-01-05] MEDS ORDERED: Levothyroxine Sodium 88 MCG TAB PO SCH (06:00)
[2022-01-05] MEDS: HYDROcodone/Acetaminophen 5/325 mg Tablet PO PRN ×2 (06:59→14:08)
[2022-01-05] MEDS ORDERED: Regadenoson 0.4 MG/5 ML SYRINGE ONE (08:41)
[2022-01-05] MEDS ORDERED: FLUoxetine HCl 10 MG CAP PO SCH (09:00)
[2022-01-05] MEDS ORDERED: lamoTRIgine 100 MG TAB PO SCH (09:00)
[2022-01-05] MEDS: Oxybutynin 5 MG TAB PO SCH (09:02)
[2022-01-05] MEDS: Pantoprazole 40 MG VIAL IVP SCH (09:03)
[2022-01-05] MEDS: Gabapentin 300 MG CAP PO SCH (09:03)
[2022-01-05 11:30] VITALS: BP 139/62; TEMP 98
== END 2022-01-05 14:30 | disposition home or self-care (01) ==
LOC: ERS 11:10 → 2SW 14:20
PROVIDERS: ADMIT Internal Medicine Geriatric Medicine; ATTEND Internal Medicine Geriatric Medicine
DX: R07.89 Other chest pain (principal); R19.5 Other fecal abnormalities; I12.9 Hypertensive chronic kidney disease with stage 1 through stage 4 chronic kidney disease, or unspecified chronic kidney disease; N18.30 Chronic kidney disease, stage 3 unspecified; E78.5 Hyperlipidemia, unspecified; K59.09 Other constipation; Z79.890 Hormone replacement therapy; Z79.02 Long term (current) use of antithrombotics/antiplatelets; Z79.82 Long term (current) use of aspirin; Z79.899 Other long term (current) drug therapy; Z88.5 Allergy status to narcotic agent; Z91.048 Other nonmedicinal substance allergy status; Z86.73 Personal history of transient ischemic attack (TIA), and cerebral infarction without residual deficits; Z95.0 Presence of cardiac pacemaker
CPT/HCPCS: 71045; 78452; 80053 ×2; 84484 ×2; 85025 ×3; 86850; 86900; 86901; 93005; 93017; 93306; 96374; 96376 ×2; 97139 ×2; 99285; A9500; G0378 ×3; 36415; 82274; C9113; J2785; J7050

== ENCOUNTER 2022-02-24 14:58 | Outpatient (CLI) | payer MEDICARE, OTHER | END 2022-02-24 14:59 | disposition home or self-care (01) | LOC: BICCT 14:58 | PROVIDERS: ATTEND Family Medicine | DX: M48.061 Spinal stenosis, lumbar region without neurogenic claudication (principal); M47.816 Spondylosis without myelopathy or radiculopathy, lumbar region; M51.9 Unspecified thoracic, thoracolumbar and lumbosacral intervertebral disc disorder; G89.4 Chronic pain syndrome | CPT/HCPCS: 72131 ==

== ENCOUNTER 2022-05-19 11:35 | Outpatient (CLI) | payer OTHER | END 2022-05-19 11:36 | disposition home or self-care (01) | LOC: EEG 11:35 | PROVIDERS: ATTEND Psychiatry & Neurology Neurology | DX: F03.90 Unspecified dementia, unspecified severity, without behavioral disturbance, psychotic disturbance, mood disturbance, and anxiety (principal); G93.89 Other specified disorders of brain | CPT/HCPCS: 95816; 95957 ==

== ENCOUNTER 2022-06-05 19:31 | Inpatient (IN) | payer OTHER ==
[2022-06-05 20:45] LABS: #Basophils 0.1 thou/uL (0.0-0.2); #Eosinphils 0.4 thou/uL (0.0-0.7); #Lymphocytes 2.7 thou/uL (1.20-3.40); #Monocytes 0.5 thou/uL (0.11-0.59); %Basophils 0.6 % (0.0-1.0); %Eosinophils 4.6 % (0.0-10.0); %Lymphocytes 30.9 % (21.0-51.0); %Neutrophils 57.9 % (42.0-75.0); Hemoglobin 11.9 g/dL (12.0-16.0); Mean Corpuscular HGB CONC 33.8 g/dL (32.0-36.0); Mean Corpuscular Hemoglobin 32.5 pg (27.0-31.0); Mean Corpuscular Volume 96.2 fL (78.0-98.0); Mean Platelet Volume 7.6 fL (7.4-10.4); Platelet Count 180 thou/uL (130-400); RBC Distribution Width 13.7 % (11.5-14.5); Red Blood Cell (RBC) Count 3.65 mill/uL (4.20-5.40); White Blood Cell (WBC) Count 8.6 thou/uL (4.8-10.8)
[2022-06-05 21:11] LABS: Protein, Urine (Dipstick) > or equal to 300 mg/dL (Neg-Trace); pH, Urine 7.5 (5.0-9.0)
[2022-06-05 21:17] LABS: Clarity Cloudy (Clear); Glucose, Urine (Dipstick) Unable to Interpret mg/dL (Negative); Leukocyte Unable to Interpret (Negative); Nitrite Unable to Interpret (Negative)
[2022-06-05 21:18] LABS: Bilirubin Unable to Interpret (Negative); Ketone, Urine Unable to Interpret mg/dL (Negative); Urobilinogen UNABLE TO INTERPRET mg/dL (Less than 2)
[2022-06-05 21:19] LABS: Blood, Urine Large (Negative); RBC/HPF Greater than 50 HPF (0-3)
[2022-06-05 21:20] LABS: WBC/HPF 21-50 HPF (0-3)
[2022-06-05 21:23] LABS: Bacteria/HPF 1+ HPF (None Seen); Squamous Epithelial None Seen HPF (0-3)
[2022-06-05] MEDS ORDERED: Acetaminophen/Codeine 30-300mg Tablet ONE (21:45)
[2022-06-05] MEDS ORDERED: cefTRIAXone\\ROCEPHIN 1 GM VIAL ONE (23:51)
[2022-06-06 00:07] LABS: #Eosinphils 0.5 thou/uL (0.0-0.7); #Lymphocytes 2.8 thou/uL (1.20-3.40); #Monocytes 0.6 thou/uL (0.11-0.59); #Neutrophils 5.3 thou/uL (1.40-6.50); %Basophils 0.5 % (0.0-1.0); %Eosinophils 5.5 % (0.0-10.0); %Monocytes 6.6 % (0.0-10.0); %Neutrophils 57.4 % (42.0-75.0); Hemoglobin 11.7 g/dL (12.0-16.0); Mean Corpuscular HGB CONC 33.6 g/dL (32.0-36.0); Mean Corpuscular Hemoglobin 32.3 pg (27.0-31.0); Mean Corpuscular Volume 96.2 fL (78.0-98.0); Mean Platelet Volume 7.8 fL (7.4-10.4); Platelet Count 180 thou/uL (130-400); RBC Distribution Width 13.4 % (11.5-14.5); Red Blood Cell (RBC) Count 3.62 mill/uL (4.20-5.40); White Blood Cell (WBC) Count 9.3 thou/uL (4.8-10.8)
[2022-06-06 00:21] LABS: PTT 29.2 sec (22.9-36.1); Prothrombin Time 12.8 sec (12.0-14.7)
[2022-06-06 00:30] LABS: ALT (SGPT) 8 U/L (8-55); AST (SGOT) 13 U/L (5-34); Albumin 3.8 g/dL (3.4-4.8); Alkaline Phosphatase 100 U/L (40-110); Anion Gap 15 mmol/L (10-20); BUN (Urea Nitrogen) 13 mg/dL (9.8-20.1); Bilirubin, Total 0.5 mg/dL (0.2-1.2); Calc. Creatinine Clearance 0 mL/min (70-130); Calcium 9.2 mg/dL (7.8-10.44); Carbon Dioxide 25 mmol/L (23-31); Chloride 105 mmol/L (98-107); Estimated GFR 45; Glucose 111 mg/dL (80-115); Potassium 3.9 mmol/L (3.5-5.1); Protein, Total 5.8 g/dL (5.8-8.1); Sodium 141 mmol/L (136-145)
[2022-06-06 01:54] VITALS: BMI 38.7
[2022-06-06] MEDS ORDERED: Ondansetron PF 4 MG/2 ML Vial IVP PRN ×2 (02:34→02:45)
[2022-06-06] MEDS ORDERED: Acetaminophen 325 MG TAB PO PRN ×2 (02:34→02:45)
[2022-06-06] MEDS ORDERED: Ondansetron ODT 4 MG TAB SL PRN (02:45)
[2022-06-06] MEDS ORDERED: HYDROcodone/Acetaminophen 5/325 mg Tablet PO PRN (04:51)
[2022-06-06 05:33] LABS: #Basophils 0.1 thou/uL (0.0-0.2); #Eosinphils 0.3 thou/uL (0.0-0.7); #Lymphocytes 2.6 thou/uL (1.20-3.40); #Monocytes 0.5 thou/uL (0.11-0.59); #Neutrophils 3.4 thou/uL (1.40-6.50); %Basophils 0.8 % (0.0-1.0); %Eosinophils 4.8 % (0.0-10.0); %Lymphocytes 37.8 % (21.0-51.0); %Monocytes 7.8 % (0.0-10.0); %Neutrophils 48.8 % (42.0-75.0); Hemoglobin 11.4 g/dL (12.0-16.0); Mean Corpuscular HGB CONC 33.4 g/dL (32.0-36.0); Mean Corpuscular Hemoglobin 32.3 pg (27.0-31.0); Mean Corpuscular Volume 96.5 fL (78.0-98.0); Mean Platelet Volume 7.6 fL (7.4-10.4); Platelet Count 174 thou/uL (130-400); RBC Distribution Width 13.3 % (11.5-14.5); Red Blood Cell (RBC) Count 3.52 mill/uL (4.20-5.40); White Blood Cell (WBC) Count 6.9 thou/uL (4.8-10.8)
[2022-06-06 05:52] LABS: Anion Gap 13 mmol/L (10-20); BUN (Urea Nitrogen) 11 mg/dL (9.8-20.1); Calc. Creatinine Clearance 71 mL/min (70-130); Carbon Dioxide 28 mmol/L (23-31); Chloride 106 mmol/L (98-107); Estimated GFR 50; Glucose 95 mg/dL (80-115); Potassium 3.6 mmol/L (3.5-5.1); Sodium 143 mmol/L (136-145)
[2022-06-06] MEDS ORDERED: clonazePAM 0.5 MG TAB PO SCH (10:15)
[2022-06-06] MEDS ORDERED: lamoTRIgine 100 MG TAB PO SCH (10:15)
[2022-06-06] MEDS ORDERED: Gabapentin 300 MG CAP PO SCH (10:15)
[2022-06-06] MEDS: Acetaminophen/Codeine 30-300mg Tablet PO PRN ×2 (11:49→21:07)
[2022-06-06] MEDS: Albuterol Sulfate 1.25 MG/3 ML NEB EZPAP SCH ×4 (13:21→23:11)
[2022-06-06] MEDS: Midodrine HCl 5 MG TAB PO SCH ×2 (16:01→21:11)
[2022-06-06] MEDS: Gabapentin 300 MG CAP PO SCH ×2 (16:02→21:11)
[2022-06-06] MEDS ORDERED: Atorvastatin Calcium 40 MG TAB PO SCH (21:00)
[2022-06-06] MEDS ORDERED: Benztropine 1 MG TAB PO SCH (21:00)
[2022-06-06] MEDS ORDERED: Prazosin HCl 1 MG CAP PO SCH (21:00)
[2022-06-06] MEDS ORDERED: traZODone HCl 150 MG TAB PO SCH (21:00)
[2022-06-06] MEDS: clonazePAM 0.5 MG TAB PO SCH (21:12)
[2022-06-07] MEDS: Acetaminophen/Codeine 30-300mg Tablet PO PRN (00:57)
[2022-06-07] MEDS: Albuterol Sulfate 1.25 MG/3 ML NEB EZPAP SCH ×3 (03:28→10:38)
[2022-06-07 05:18] LABS: #Eosinphils 0.4 thou/uL (0.0-0.7); #Lymphocytes 2.1 thou/uL (1.20-3.40); #Monocytes 0.5 thou/uL (0.11-0.59); #Neutrophils 3.6 thou/uL (1.40-6.50); %Basophils 0.7 % (0.0-1.0); %Eosinophils 5.8 % (0.0-10.0); %Lymphocytes 31.9 % (21.0-51.0); %Monocytes 7.4 % (0.0-10.0); %Neutrophils 54.2 % (42.0-75.0); Hemoglobin 10.8 g/dL (12.0-16.0); Mean Corpuscular HGB CONC 32.8 g/dL (32.0-36.0); Mean Corpuscular Hemoglobin 31.4 pg (27.0-31.0); Mean Corpuscular Volume 95.6 fL (78.0-98.0); Mean Platelet Volume 7.9 fL (7.4-10.4); Platelet Count 163 thou/uL (130-400); RBC Distribution Width 13.6 % (11.5-14.5); Red Blood Cell (RBC) Count 3.44 mill/uL (4.20-5.40); White Blood Cell (WBC) Count 6.7 thou/uL (4.8-10.8)
[2022-06-07 05:39] LABS: Anion Gap 16 mmol/L (10-20); BUN (Urea Nitrogen) 14 mg/dL (9.8-20.1); Calc. Creatinine Clearance 59 mL/min (70-130); Calcium 8.8 mg/dL (7.8-10.44); Carbon Dioxide 24 mmol/L (23-31); Chloride 105 mmol/L (98-107); Estimated GFR 40; Glucose 132 mg/dL (80-115); Potassium 3.7 mmol/L (3.5-5.1); Sodium 141 mmol/L (136-145)
[2022-06-07] MEDS ORDERED: Levothyroxine Sodium 88 MCG TAB PO SCH (06:00)
[2022-06-07] MEDS: clonazePAM 0.5 MG TAB PO SCH (08:46)
[2022-06-07] MEDS: Gabapentin 300 MG CAP PO SCH (08:47)
[2022-06-07] MEDS: Midodrine HCl 5 MG TAB PO SCH (08:47)
[2022-06-07] MEDS ORDERED: lamoTRIgine 100 MG TAB PO SCH (09:00)
[2022-06-07] MEDS ORDERED: Linaclotide [Linzess] 290 MCG Capsule PO SCH (09:00)
[2022-06-07 13:02] VITALS: BP 94/63; TEMP 97.5
== END 2022-06-07 14:15 | disposition home or self-care (01) | DRG 696 ==
LOC: ERS 19:31 → MSONC 06-06 00:34
PROVIDERS: ADMIT Internal Medicine; ATTEND Internal Medicine
PROC: 3E1K78Z Irrigation of Genitourinary Tract using Irrigating Substance, Via Natural or Artificial Opening (ICD-10-PCS; principal; 2022-06-06)
DX: R31.9 Hematuria, unspecified (principal); I50.32 Chronic diastolic (congestive) heart failure; I13.0 Hypertensive heart and chronic kidney disease with heart failure and stage 1 through stage 4 chronic kidney disease, or unspecified chronic kidney disease; I69.351 Hemiplegia and hemiparesis following cerebral infarction affecting right dominant side; Z20.822 Contact with and (suspected) exposure to COVID-19; N18.30 Chronic kidney disease, stage 3 unspecified; D63.1 Anemia in chronic kidney disease; E78.5 Hyperlipidemia, unspecified; E03.9 Hypothyroidism, unspecified; K21.9 Gastro-esophageal reflux disease without esophagitis; N31.9 Neuromuscular dysfunction of bladder, unspecified; F31.9 Bipolar disorder, unspecified; G89.29 Other chronic pain; M54.9 Dorsalgia, unspecified; Z96.611 Presence of right artificial shoulder joint; Z96.653 Presence of artificial knee joint, bilateral; D68.32 Hemorrhagic disorder due to extrinsic circulating anticoagulants; T39.015A Adverse effect of aspirin, initial encounter; T45.525A Adverse effect of antithrombotic drugs, initial encounter; E66.9 Obesity, unspecified; Z68.38 Body mass index [BMI] 38.0-38.9, adult; Z88.5 Allergy status to narcotic agent; Z88.8 Allergy status to other drugs, medicaments and biological substances; Z91.09 Other allergy status, other than to drugs and biological substances; Z79.899 Other long term (current) drug therapy; Z79.890 Hormone replacement therapy; Z79.02 Long term (current) use of antithrombotics/antiplatelets; Z95.0 Presence of cardiac pacemaker; Z90.49 Acquired absence of other specified parts of digestive tract; Z90.710 Acquired absence of both cervix and uterus; Z82.49 Family history of ischemic heart disease and other diseases of the circulatory system
CPT/HCPCS: 36415; 74176; 80048; 80053; 81003; 81015; 83880; 85025; 85610; 85730; 86850; 86900; 86901; 87086; 94640; J0696; U0003; U0005

== ENCOUNTER 2022-11-17 12:55 | Outpatient (CLI) | payer OTHER | END 2022-11-17 12:56 | disposition home or self-care (01) | LOC: BICCT 12:55 | PROVIDERS: ATTEND Internal Medicine Critical Care Medicine | DX: Z12.2 Encounter for screening for malignant neoplasm of respiratory organs (principal); R91.1 Solitary pulmonary nodule; Z87.891 Personal history of nicotine dependence | CPT/HCPCS: 71271 ==

== ENCOUNTER 2022-11-27 12:16 | Emergency (ER) | payer OTHER ==
[~2022-11-27 12:16] MED LIST: Iopamidol-370 76% 500 ML 1 ML ONE
[2022-11-27] MEDS ORDERED: Acetaminophen 500 MG TAB ONE (13:10)
[2022-11-27 13:23] LABS: #Eosinphils 0.3 thou/uL (0.0-0.7); #Lymphocytes 2.3 thou/uL (1.20-3.40); #Monocytes 0.4 thou/uL (0.11-0.59); #Neutrophils 4.3 thou/uL (1.40-6.50); %Basophils 0.4 % (0.0-1.0); %Eosinophils 4.3 % (0.0-10.0); %Lymphocytes 31.2 % (21.0-51.0); %Monocytes 5.9 % (0.0-10.0); %Neutrophils 58.1 % (42.0-75.0); Hemoglobin 12.5 g/dL (12.0-16.0); Mean Corpuscular HGB CONC 33.7 g/dL (32.0-36.0); Mean Platelet Volume 7.8 fL (7.4-10.4); Platelet Count 197 10x3/uL (130-400); RBC Distribution Width 13.5 % (11.5-14.5); Red Blood Cell (RBC) Count 3.91 mill/uL (4.20-5.40); White Blood Cell (WBC) Count 7.4 10x3/uL (4.8-10.8)
[2022-11-27 13:24] LABS: Bacteria/HPF 2+ HPF (None Seen); Bilirubin Negative (Negative); Blood, Urine 3+ (Negative); Clarity Turbid (Clear); Glucose, Urine (Dipstick) Normal (Negative); Ketone, Urine Negative (Negative); Leukocyte 500 Leu/uL (Negative); Nitrite 2+ (Negative); Protein, Urine (Dipstick) Negative (Neg-Trace); Specific Gravity, Urine 1.004 (1.002-1.036); Squamous Epithelial None Seen HPF (0-3); Urobilinogen Normal mg/dL (Less than 2); WBC/HPF 21-50 HPF (0-3)
[2022-11-27 13:29] LABS: Albumin 3.9 g/dL (3.4-4.8)
[2022-11-27 13:30] LABS: Chloride 104 mmol/L (98-107); Potassium 4.2 mmol/L (3.5-5.1); Sodium 137 mmol/L (136-145)
[2022-11-27 13:31] LABS: Calcium 9.3 mg/dL (7.8-10.44); Glucose 111 mg/dL (80-115)
[2022-11-27 13:32] LABS: Globulin 2.7 g/dL (2.4-3.5); Protein, Total 6.6 g/dL (5.8-8.1)
[2022-11-27 13:33] LABS: Anion Gap 13 mmol/L (10-20); Bilirubin, Total 0.2 mg/dL (0.2-1.2); Carbon Dioxide 24 mmol/L (23-31)
[2022-11-27 13:34] LABS: Alkaline Phosphatase 109 U/L (40-110)
[2022-11-27 13:35] LABS: Calc. Creatinine Clearance 0 mL/min (70-130); Estimated GFR 45
[2022-11-27 13:36] LABS: BUN (Urea Nitrogen) 7 mg/dL (9.8-20.1)
[2022-11-27 13:37] LABS: ALT (SGPT) 12 U/L (8-55); AST (SGOT) 24 U/L (5-34); Magnesium 2.1 mg/dL (1.6-2.6)
[2022-11-27 13:38] LABS: Lipase 60 U/L (8-78)
[2022-11-27] MEDS ORDERED: AMIKACIN SULFATE IVPB SCH (14:45)
[2022-11-27] MEDS ORDERED: SODIUM CHLORIDE 0.9% IVPB SCH (14:45)
== END 2022-11-27 16:29 | disposition home or self-care (01) ==
LOC: ERS 12:16
DX: N39.0 Urinary tract infection, site not specified (principal); E03.9 Hypothyroidism, unspecified; K21.9 Gastro-esophageal reflux disease without esophagitis; E78.5 Hyperlipidemia, unspecified; I10 Essential (primary) hypertension; Z87.891 Personal history of nicotine dependence; Z79.899 Other long term (current) drug therapy; Z79.82 Long term (current) use of aspirin
CPT/HCPCS: 71045; 74177; 80053; 81003; 81015; 83690; 83735; 84484; 85025; 87040; 87077; 87086; 87186; 93005; 96374; J0278; J3490; Q9967

== ENCOUNTER 2023-03-06 11:36 | Inpatient (IN) | payer OTHER ==
[2023-03-06] MEDS ORDERED: Acetaminophen 500 MG TAB ONE (14:23)
[2023-03-06] MEDS ORDERED: Ondansetron ODT 4 MG TAB PO PRN (15:13)
[2023-03-06] MEDS ORDERED: Meropenem 1 GM in Sodium Chloride 0.9% 100 ML IVPB SCH ×2 (15:15→22:00)
[2023-03-06] MEDS: Sodium Chloride 0.9% 1,000 ML IV SCH (15:42)
[2023-03-06 16:06] VITALS: BMI 35.2
[2023-03-06] MEDS: Ondansetron PF 4 MG/2 ML Vial IVP PRN (23:20)
[2023-03-07] MEDS: Acetaminophen/Codeine 30-300mg Tablet PO PRN ×2 (00:25→21:12)
[2023-03-07] MEDS: Sodium Chloride 0.9% 1,000 ML IV SCH (01:44)
[2023-03-07 02:53] LABS: Bacteria/HPF None Seen HPF (None Seen); Bilirubin Negative (Negative); Blood, Urine Negative (Negative); CAUTI Indications for Culture Fever or rigors; Clarity Clear (Clear); Glucose, Urine (Dipstick) Normal (Negative); Ketone, Urine Negative (Negative); Leukocyte 75 Leu/uL (Negative); Nitrite Negative (Negative); Protein, Urine (Dipstick) Negative (Neg-Trace); RBC/HPF 0-3 HPF (0-3); Specific Gravity, Urine 1.004 (1.002-1.036); Squamous Epithelial None Seen HPF (0-3); Urobilinogen Normal mg/dL (Less than 2); WBC/HPF 0-3 HPF (0-3); pH, Urine 6.5 (5.0-9.0)
[2023-03-07 02:56] LABS: Urine Culture Reflex No No
[2023-03-07 05:01] LABS: #Eosinphils 0.2 thou/uL (0.0-0.7); #Neutrophils 8.6 thou/uL (1.40-6.50); %Basophils 0.3 % (0.0-1.0); %Eosinophils 1.3 % (0.0-10.0); %Monocytes 7.9 % (0.0-10.0); %Neutrophils 72.1 % (42.0-75.0); Hemoglobin 9.5 g/dL (12.0-16.0); Mean Corpuscular HGB CONC 31.9 g/dL (32.0-36.0); Mean Corpuscular Hemoglobin 28.7 pg (27.0-31.0); Platelet Count 168 10x3/uL (130-400); RBC Distribution Width 14.9 % (11.5-14.5); Red Blood Cell (RBC) Count 3.31 mill/uL (4.20-5.40)
[2023-03-07 05:24] LABS: Anion Gap 11 mmol/L (10-20); BUN (Urea Nitrogen) 13 mg/dL (9.8-20.1); Calc. Creatinine Clearance 60 mL/min (70-130); Calcium 8.7 mg/dL (7.8-10.44); Carbon Dioxide 26 mmol/L (23-31); Chloride 106 mmol/L (98-107); Cholesterol 112 mg/dl (< 200 Desired); Estimated GFR 46; Glucose 86 mg/dL (80-115); HDL Cholesterol 55 mg/dL (>60 Neg Risk); LDL Cholesterol, Calculated 51 mg/dL; Sodium 139 mmol/L (136-145); Triglycerides 30 mg/dL (Less than 150)
[2023-03-07] MEDS: Meropenem 1 GM in Sodium Chloride 0.9% 100 ML IVPB SCH ×2 (06:37→17:30)
[2023-03-07] MEDS: Aspirin 81 mg Enteric Coated Tablet PO SCH (08:47)
[2023-03-07] MEDS: clonazePAM 0.5 MG TAB PO SCH ×2 (08:47→21:12)
[2023-03-07] MEDS ORDERED: Clopidogrel Bisulfate 75 MG TAB PO SCH (13:00)
[2023-03-07] MEDS: Gabapentin 300 MG CAP PO SCH ×2 (14:32→21:12)
[2023-03-07] MEDS: Benztropine 1 MG TAB PO SCH (21:11)
[2023-03-07] MEDS: traZODone HCl 50 MG TAB PO SCH (21:11)
[2023-03-07] MEDS: lamoTRIgine 100 MG TAB PO SCH (21:11)
[2023-03-07] MEDS: Benzonatate 100 MG CAP PO PRN (21:54)
[2023-03-08] MEDS ORDERED: rOPINIRole HCl 2 MG TAB PO SCH ×2 (02:04→09:00)
[2023-03-08] MEDS: Acetaminophen 325 MG TAB PO PRN (02:26)
[2023-03-08] MEDS: Levothyroxine Sodium 88 MCG TAB PO SCH (05:25)
[2023-03-08] MEDS: Meropenem 1 GM in Sodium Chloride 0.9% 100 ML IVPB SCH ×2 (05:25→17:33)
[2023-03-08 05:29] LABS: Hemoglobin 9.7 g/dL (12.0-16.0); Mean Corpuscular HGB CONC 31.9 g/dL (32.0-36.0); Mean Corpuscular Hemoglobin 28.6 pg (27.0-31.0); Mean Corpuscular Volume 89.7 fl (78.0-98.0); Mean Platelet Volume 10.2 fL (7.4-10.4); Platelet Count 176 10x3/uL (130-400); RBC Distribution Width 14.6 % (11.5-14.5); Red Blood Cell (RBC) Count 3.39 mill/uL (4.20-5.40); White Blood Cell (WBC) Count 7.7 10x3/uL (4.8-10.8)
[2023-03-08] MEDS: Acetaminophen/Codeine 30-300mg Tablet PO PRN ×2 (05:31→21:44)
[2023-03-08 05:52] LABS: Anion Gap 11 mmol/L (10-20); BUN (Urea Nitrogen) 11 mg/dL (9.8-20.1); Calc. Creatinine Clearance 73 mL/min (70-130); Calcium 9.1 mg/dL (7.8-10.44); Carbon Dioxide 27 mmol/L (23-31); Chloride 105 mmol/L (98-107); Estimated GFR 59; Glucose 84 mg/dL (80-115); Potassium 3.9 mmol/L (3.5-5.1); Sodium 139 mmol/L (136-145)
[2023-03-08] MEDS: Atorvastatin Calcium 40 MG TAB PO SCH (09:07)
[2023-03-08] MEDS: clonazePAM 0.5 MG TAB PO SCH ×2 (09:07→21:44)
[2023-03-08] MEDS: Aspirin 81 mg Enteric Coated Tablet PO SCH (09:07)
[2023-03-08] MEDS: Clopidogrel Bisulfate 75 MG TAB PO SCH (09:08)
[2023-03-08] MEDS: FLUoxetine HCl 10 MG CAP PO SCH (09:08)
[2023-03-08] MEDS: Gabapentin 300 MG CAP PO SCH ×3 (09:08→21:46)
[2023-03-08] MEDS: lamoTRIgine 100 MG TAB PO SCH ×2 (09:10→21:43)
[2023-03-08] MEDS: rOPINIRole HCl 2 MG TAB PO SCH ×2 (09:12→21:40)
[2023-03-08] MEDS: Linaclotide [Linzess] 290 MCG Capsule PO SCH (09:19)
[2023-03-08] MEDS: Benzonatate 100 MG CAP PO PRN (19:36)
[2023-03-08] MEDS: Benztropine 1 MG TAB PO SCH (21:41)
[2023-03-08] MEDS: traZODone HCl 50 MG TAB PO SCH (21:43)
[2023-03-09] MEDS: Levothyroxine Sodium 88 MCG TAB PO SCH (06:27)
[2023-03-09] MEDS: Meropenem 1 GM in Sodium Chloride 0.9% 100 ML IVPB SCH ×2 (06:28→18:14)
[2023-03-09] MEDS: rOPINIRole HCl 2 MG TAB PO SCH ×2 (11:12→21:13)
[2023-03-09] MEDS: FLUoxetine HCl 10 MG CAP PO SCH (11:12)
[2023-03-09] MEDS: Linaclotide [Linzess] 290 MCG Capsule PO SCH (11:13)
[2023-03-09] MEDS: Clopidogrel Bisulfate 75 MG TAB PO SCH (11:14)
[2023-03-09] MEDS: Aspirin 81 mg Enteric Coated Tablet PO SCH (11:14)
[2023-03-09] MEDS: lamoTRIgine 100 MG TAB PO SCH ×2 (11:14→21:14)
[2023-03-09] MEDS: clonazePAM 0.5 MG TAB PO SCH ×2 (11:14→21:16)
[2023-03-09] MEDS: Gabapentin 300 MG CAP PO SCH ×3 (11:15→21:13)
[2023-03-09] MEDS: Atorvastatin Calcium 40 MG TAB PO SCH ×2 (11:15→21:14)
[2023-03-09] MEDS: Benztropine 1 MG TAB PO SCH (21:13)
[2023-03-09] MEDS: traZODone HCl 50 MG TAB PO SCH (21:16)
[2023-03-09] MEDS: Acetaminophen/Codeine 30-300mg Tablet PO PRN (22:52)
[2023-03-10] MEDS ORDERED: Cyclobenzaprine 10 MG TAB PO SCH (01:15)
[2023-03-10] MEDS: Acetaminophen 325 MG TAB PO PRN ×2 (01:35→21:43)
[2023-03-10] MEDS: Meropenem 1 GM in Sodium Chloride 0.9% 100 ML IVPB SCH ×2 (06:12→16:04)
[2023-03-10] MEDS: Levothyroxine Sodium 88 MCG TAB PO SCH (06:12)
[2023-03-10] MEDS: Aspirin 81 mg Enteric Coated Tablet PO SCH (09:26)
[2023-03-10] MEDS: rOPINIRole HCl 2 MG TAB PO SCH ×2 (09:26→21:43)
[2023-03-10] MEDS: lamoTRIgine 100 MG TAB PO SCH ×2 (09:29→21:42)
[2023-03-10] MEDS: Linaclotide [Linzess] 290 MCG Capsule PO SCH (09:29)
[2023-03-10] MEDS: FLUoxetine HCl 10 MG CAP PO SCH (09:29)
[2023-03-10] MEDS: clonazePAM 0.5 MG TAB PO SCH ×2 (09:30→21:42)
[2023-03-10] MEDS: Clopidogrel Bisulfate 75 MG TAB PO SCH (09:30)
[2023-03-10] MEDS: Gabapentin 300 MG CAP PO SCH ×3 (09:31→21:41)
[2023-03-10] MEDS: Acetaminophen/Codeine 30-300mg Tablet PO PRN (16:07)
[2023-03-10] MEDS: traZODone HCl 50 MG TAB PO SCH (21:40)
[2023-03-10] MEDS: Atorvastatin Calcium 40 MG TAB PO SCH (21:41)
[2023-03-10] MEDS: Cefdinir 300 MG CAP PO SCH (21:41)
[2023-03-10] MEDS: Benztropine 1 MG TAB PO SCH (21:41)
[2023-03-11] MEDS: Levothyroxine Sodium 88 MCG TAB PO SCH (05:19)
[2023-03-11] MEDS: Acetaminophen/Codeine 30-300mg Tablet PO PRN (05:20)
[2023-03-11] MEDS: Linaclotide [Linzess] 290 MCG Capsule PO SCH (09:47)
[2023-03-11] MEDS: FLUoxetine HCl 10 MG CAP PO SCH (09:47)
[2023-03-11] MEDS: Clopidogrel Bisulfate 75 MG TAB PO SCH (09:48)
[2023-03-11] MEDS: rOPINIRole HCl 2 MG TAB PO SCH ×2 (09:48→20:19)
[2023-03-11] MEDS: Aspirin 81 mg Enteric Coated Tablet PO SCH (09:48)
[2023-03-11] MEDS: Gabapentin 300 MG CAP PO SCH ×3 (09:48→20:19)
[2023-03-11] MEDS: Cefdinir 300 MG CAP PO SCH ×2 (09:48→20:19)
[2023-03-11] MEDS: clonazePAM 0.5 MG TAB PO SCH ×2 (09:49→20:20)
[2023-03-11] MEDS: lamoTRIgine 100 MG TAB PO SCH ×2 (09:49→20:20)
[2023-03-11] MEDS: Ondansetron PF 4 MG/2 ML Vial IVP PRN (18:14)
[2023-03-11] MEDS: Atorvastatin Calcium 40 MG TAB PO SCH (20:19)
[2023-03-11] MEDS: traZODone HCl 50 MG TAB PO SCH (20:19)
[2023-03-11] MEDS: Benztropine 1 MG TAB PO SCH (20:19)
[2023-03-12] MEDS: Levothyroxine Sodium 88 MCG TAB PO SCH (06:01)
[2023-03-12 06:05] LABS: #Basophils 0.1 thou/uL (0.0-0.2); #Eosinphils 0.4 thou/uL (0.0-0.7); #Monocytes 0.5 thou/uL (0.11-0.59); %Eosinophils 5.9 % (0.0-10.0); %Lymphocytes 41.5 % (21.0-51.0); %Monocytes 7.7 % (0.0-10.0); %Neutrophils 43.6 % (42.0-75.0); Hemoglobin 10.2 g/dL (12.0-16.0); Mean Corpuscular HGB CONC 31.5 g/dL (32.0-36.0); Mean Platelet Volume 9.6 fL (7.4-10.4); Platelet Count 223 10x3/uL (130-400); RBC Distribution Width 14.6 % (11.5-14.5); Red Blood Cell (RBC) Count 3.52 mill/uL (4.20-5.40); White Blood Cell (WBC) Count 6.8 10x3/uL (4.8-10.8)
[2023-03-12 06:31] LABS: Anion Gap 13 mmol/L (10-20); BUN (Urea Nitrogen) 11 mg/dL (9.8-20.1); Calc. Creatinine Clearance 65 mL/min (70-130); Carbon Dioxide 25 mmol/L (23-31); Chloride 109 mmol/L (98-107); Estimated GFR 51; Glucose 96 mg/dL (80-115); Potassium 4.5 mmol/L (3.5-5.1); Sodium 142 mmol/L (136-145)
[2023-03-12] MEDS: Aspirin 81 mg Enteric Coated Tablet PO SCH (08:33)
[2023-03-12] MEDS: Cefdinir 300 MG CAP PO SCH ×2 (08:33→21:16)
[2023-03-12] MEDS: clonazePAM 0.5 MG TAB PO SCH ×2 (08:35→21:16)
[2023-03-12] MEDS: Gabapentin 300 MG CAP PO SCH ×3 (08:36→21:16)
[2023-03-12] MEDS: Clopidogrel Bisulfate 75 MG TAB PO SCH (08:36)
[2023-03-12] MEDS: FLUoxetine HCl 10 MG CAP PO SCH (08:36)
[2023-03-12] MEDS: Linaclotide [Linzess] 290 MCG Capsule PO SCH (08:39)
[2023-03-12] MEDS: lamoTRIgine 100 MG TAB PO SCH ×2 (08:39→21:16)
[2023-03-12] MEDS: rOPINIRole HCl 2 MG TAB PO SCH ×2 (08:40→21:16)
[2023-03-12] MEDS: Acetaminophen/Codeine 30-300mg Tablet PO PRN ×2 (08:49→16:28)
[2023-03-12] MEDS: Benztropine 1 MG TAB PO SCH (21:15)
[2023-03-12] MEDS: Atorvastatin Calcium 40 MG TAB PO SCH (21:15)
[2023-03-12] MEDS: traZODone HCl 50 MG TAB PO SCH (21:17)
[2023-03-13] MEDS: Acetaminophen/Codeine 30-300mg Tablet PO PRN ×3 (00:45→19:15)
[2023-03-13] MEDS: Levothyroxine Sodium 88 MCG TAB PO SCH (05:37)
[2023-03-13] MEDS: Aspirin 81 mg Enteric Coated Tablet PO SCH (07:56)
[2023-03-13] MEDS: Cefdinir 300 MG CAP PO SCH ×2 (07:56→21:17)
[2023-03-13] MEDS: clonazePAM 0.5 MG TAB PO SCH ×2 (07:57→21:17)
[2023-03-13] MEDS: Clopidogrel Bisulfate 75 MG TAB PO SCH (07:57)
[2023-03-13] MEDS: lamoTRIgine 100 MG TAB PO SCH ×2 (07:57→21:17)
[2023-03-13] MEDS: Gabapentin 300 MG CAP PO SCH ×3 (07:57→21:18)
[2023-03-13] MEDS: FLUoxetine HCl 10 MG CAP PO SCH (07:57)
[2023-03-13] MEDS: rOPINIRole HCl 2 MG TAB PO SCH ×2 (07:59→21:17)
[2023-03-13] MEDS: Linaclotide [Linzess] 290 MCG Capsule PO SCH (08:00)
[2023-03-13] MEDS ORDERED: Morphine 2 MG/ML VIAL SLOW IVP SCH (14:30)
[2023-03-13] MEDS: Benztropine 1 MG TAB PO SCH (21:17)
[2023-03-13] MEDS: Atorvastatin Calcium 40 MG TAB PO SCH (21:18)
[2023-03-13] MEDS: traZODone HCl 50 MG TAB PO SCH (21:18)
[2023-03-13] MEDS ORDERED: traMADol HCl 50 MG TAB PO SCH (22:00)
[2023-03-13] MEDS ORDERED: Lidocaine 4% Patch TD SCH (22:00)
[2023-03-14] MEDS: Acetaminophen/Codeine 30-300mg Tablet PO PRN ×3 (02:45→18:39)
[2023-03-14] MEDS: Levothyroxine Sodium 88 MCG TAB PO SCH (06:31)
[2023-03-14] MEDS: FLUoxetine HCl 10 MG CAP PO SCH (09:23)
[2023-03-14] MEDS: rOPINIRole HCl 2 MG TAB PO SCH ×2 (09:23→21:00)
[2023-03-14] MEDS: Linaclotide [Linzess] 290 MCG Capsule PO SCH (09:23)
[2023-03-14] MEDS: Aspirin 81 mg Enteric Coated Tablet PO SCH (09:24)
[2023-03-14] MEDS: Cefdinir 300 MG CAP PO SCH ×2 (09:24→20:57)
[2023-03-14] MEDS: clonazePAM 0.5 MG TAB PO SCH ×2 (09:24→20:56)
[2023-03-14] MEDS: Gabapentin 300 MG CAP PO SCH ×3 (09:24→20:58)
[2023-03-14] MEDS: lamoTRIgine 100 MG TAB PO SCH ×2 (09:25→20:56)
[2023-03-14] MEDS: Clopidogrel Bisulfate 75 MG TAB PO SCH (09:25)
[2023-03-14] MEDS ORDERED: Transdermal Patch Removal TOP SCH (10:00)
[2023-03-14] MEDS ORDERED: Morphine 2 MG/ML VIAL SLOW IVP SCH (10:45)
[2023-03-14] MEDS: Ondansetron PF 4 MG/2 ML Vial IVP PRN (10:51)
[2023-03-14] MEDS ORDERED: traMADol HCl 50 MG TAB PO SCH (12:30)
[2023-03-14] MEDS: traZODone HCl 50 MG TAB PO SCH (20:55)
[2023-03-14] MEDS: Atorvastatin Calcium 40 MG TAB PO SCH (20:56)
[2023-03-14] MEDS: Benztropine 1 MG TAB PO SCH (20:57)
[2023-03-15] MEDS: Levothyroxine Sodium 88 MCG TAB PO SCH (06:00)
[2023-03-15] MEDS: Acetaminophen/Codeine 30-300mg Tablet PO PRN (06:05)
[2023-03-15] MEDS: lamoTRIgine 100 MG TAB PO SCH (08:45)
[2023-03-15] MEDS: Aspirin 81 mg Enteric Coated Tablet PO SCH (08:45)
[2023-03-15] MEDS: Clopidogrel Bisulfate 75 MG TAB PO SCH (08:45)
[2023-03-15] MEDS: Gabapentin 300 MG CAP PO SCH ×2 (08:45→16:30)
[2023-03-15] MEDS: clonazePAM 0.5 MG TAB PO SCH (08:45)
[2023-03-15] MEDS: FLUoxetine HCl 10 MG CAP PO SCH (08:45)
[2023-03-15] MEDS: rOPINIRole HCl 2 MG TAB PO SCH (08:45)
[2023-03-15] MEDS: Linaclotide [Linzess] 290 MCG Capsule PO SCH (08:47)
[2023-03-15 11:53] VITALS: BP 107/72; TEMP 98
== END 2023-03-15 19:21 | disposition home or self-care (01) | DRG 871 ==
LOC: ERS 11:36 → ERHOLD 15:47 → NEURO 22:20 → MSONC 03-11 15:15
PROVIDERS: ADMIT Internal Medicine; ATTEND Internal Medicine
DX: A41.9 Sepsis, unspecified organism (principal); G93.41 Metabolic encephalopathy; J18.9 Pneumonia, unspecified organism; I13.0 Hypertensive heart and chronic kidney disease with heart failure and stage 1 through stage 4 chronic kidney disease, or unspecified chronic kidney disease; I69.351 Hemiplegia and hemiparesis following cerebral infarction affecting right dominant side; I50.32 Chronic diastolic (congestive) heart failure; N39.0 Urinary tract infection, site not specified; E78.5 Hyperlipidemia, unspecified; K21.9 Gastro-esophageal reflux disease without esophagitis; E03.9 Hypothyroidism, unspecified; N18.30 Chronic kidney disease, stage 3 unspecified; F31.9 Bipolar disorder, unspecified; Z96.653 Presence of artificial knee joint, bilateral; R33.9 Retention of urine, unspecified; N35.92 Unspecified urethral stricture, female; G89.29 Other chronic pain; M54.9 Dorsalgia, unspecified; N31.9 Neuromuscular dysfunction of bladder, unspecified; Z88.5 Allergy status to narcotic agent; Z88.8 Allergy status to other drugs, medicaments and biological substances; Z91.09 Other allergy status, other than to drugs and biological substances; Z79.899 Other long term (current) drug therapy; Z79.890 Hormone replacement therapy; Z79.02 Long term (current) use of antithrombotics/antiplatelets; Z79.82 Long term (current) use of aspirin; Z90.710 Acquired absence of both cervix and uterus; Z87.440 Personal history of urinary (tract) infections
CPT/HCPCS: 36415; 74176; 80048; 80061; 81001; 85025; 85027; 87070; 87081; 87205; 87633; 93005; 96374; J2185; J2272; J2405; J3490; J7050

== ENCOUNTER 2023-05-25 13:14 | Outpatient (CLI) | payer OTHER | END 2023-05-25 13:15 | disposition home or self-care (01) | LOC: BICCT 13:14 | PROVIDERS: ATTEND Psychiatry & Neurology Neurology | DX: F03.90 Unspecified dementia, unspecified severity, without behavioral disturbance, psychotic disturbance, mood disturbance, and anxiety (principal) | CPT/HCPCS: 70450 ==

== ENCOUNTER 2023-10-26 05:49 | Day surgery (SDC) | payer OTHER, MEDICAID ==
[2023-10-25 11:53] VITALS: BMI 34.5
[2023-10-26] MEDS ORDERED: Ketamine In 0.9 % NaCl 50 MG/5 ML SYRINGE ONE (07:24)
[2023-10-26] MEDS ORDERED: PROPOFOL 20 ML ONE ×3 (07:24→08:09)
[2023-10-26] MEDS ORDERED: PHENYLEPHRINE-NS 100 MCG/ML 10 ML SYRINGE ONE (08:02)
== END 2023-10-26 09:33 | disposition home or self-care (01) ==
LOC: SDC 05:49
PROVIDERS: ATTEND Internal Medicine
PROC: 0W3P8ZZ Control Bleeding in Gastrointestinal Tract, Via Natural or Artificial Opening Endoscopic (ICD-10-PCS; principal; 2023-10-26)
PROC: 0DB58ZX Excision of Esophagus, Via Natural or Artificial Opening Endoscopic, Diagnostic (ICD-10-PCS; 2023-10-26)
PROC: 0D748ZZ Dilation of Esophagogastric Junction, Via Natural or Artificial Opening Endoscopic (ICD-10-PCS; 2023-10-26)
PROC: 0DJD8ZZ Inspection of Lower Intestinal Tract, Via Natural or Artificial Opening Endoscopic (ICD-10-PCS; 2023-10-26)
DX: Z12.11 Encounter for screening for malignant neoplasm of colon (principal); D17.5 Benign lipomatous neoplasm of intra-abdominal organs; K21.00 Gastro-esophageal reflux disease with esophagitis, without bleeding; B37.81 Candidal esophagitis; K29.50 Unspecified chronic gastritis without bleeding; K64.4 Residual hemorrhoidal skin tags; K64.8 Other hemorrhoids; F41.9 Anxiety disorder, unspecified; M19.90 Unspecified osteoarthritis, unspecified site; N18.9 Chronic kidney disease, unspecified; I50.9 Heart failure, unspecified; E66.3 Overweight; F32.A Depression, unspecified; E78.00 Pure hypercholesterolemia, unspecified; K58.9 Irritable bowel syndrome, unspecified; Z95.0 Presence of cardiac pacemaker; Z98.890 Other specified postprocedural states; Z86.010 Personal history of colon polyps; Z90.710 Acquired absence of both cervix and uterus; Z79.890 Hormone replacement therapy; Z79.899 Other long term (current) drug therapy; Z87.891 Personal history of nicotine dependence; Z68.34 Body mass index [BMI] 34.0-34.9, adult; Z91.048 Other nonmedicinal substance allergy status; Z91.040 Latex allergy status; Z88.8 Allergy status to other drugs, medicaments and biological substances
CPT/HCPCS: 88305; J2704; J3490

== ENCOUNTER 2023-11-17 09:01 | Outpatient (CLI) | payer OTHER | END 2023-11-17 09:02 | disposition home or self-care (01) | LOC: BICCT 09:01 | PROVIDERS: ATTEND Internal Medicine Critical Care Medicine | DX: Z12.2 Encounter for screening for malignant neoplasm of respiratory organs (principal); J98.4 Other disorders of lung; J84.10 Pulmonary fibrosis, unspecified; R59.0 Localized enlarged lymph nodes; Z87.891 Personal history of nicotine dependence | CPT/HCPCS: 71271 ==

== ENCOUNTER 2024-04-01 09:25 | Outpatient (CLI) | payer OTHER | END 2024-04-01 09:26 | disposition home or self-care (01) | LOC: RAD 09:25 | PROVIDERS: ATTEND Internal Medicine | DX: R13.10 Dysphagia, unspecified (principal); K21.9 Gastro-esophageal reflux disease without esophagitis; K59.09 Other constipation | CPT/HCPCS: 74230 ==

== ENCOUNTER 2024-04-19 12:54 | Outpatient (CLI) | payer OTHER, MEDICAID | END 2024-04-19 12:55 | disposition home or self-care (01) | LOC: BICULT 12:54 | PROVIDERS: ATTEND Urology | DX: Z43.5 Encounter for attention to cystostomy (principal); N35.82 Other urethral stricture, female; R33.9 Retention of urine, unspecified; N31.9 Neuromuscular dysfunction of bladder, unspecified; N28.1 Cyst of kidney, acquired; N28.89 Other specified disorders of kidney and ureter; Z87.898 Personal history of other specified conditions | CPT/HCPCS: 76770 ==

== ENCOUNTER 2025-06-23 11:43 | Outpatient (CLI) | payer OTHER, MEDICAID ==
[~2025-06-23 11:43] MED LIST changes: +Iopamidol 370 76% 100 ML VIAL ONE; -Iopamidol-370 76% 500 ML 1 ML ONE
[2025-06-23 12:26] LABS: Estimated GFR - POC 37.0
== END 2025-06-23 11:44 | disposition home or self-care (01) ==
LOC: CT 11:43
PROVIDERS: ATTEND Internal Medicine Critical Care Medicine
DX: J44.9 Chronic obstructive pulmonary disease, unspecified (principal)
CPT/HCPCS: 36415; 71260; 82565

== ENCOUNTER 2025-08-12 18:42 | Inpatient (IN) | payer OTHER ==
[2025-08-12] MEDS ORDERED: Ondansetron PF 4 MG/2 ML Vial ONE (20:19)
[2025-08-12 21:01] LABS: #Basophils 0.08 10x3/uL (0.0-0.2); #Eosinophils 0.36 10x3/uL (0.0-0.7); #Monocytes 0.72 10x3/uL (0.11-0.59); #Neutrophils 7.20 10x3/uL (1.40-6.50); %Basophils 0.7 % (0.0-1.0); %Eosinophils 3.0 % (0.0-10.0); %Lymphocytes 29.0 % (21.0-51.0); %Monocytes 6.1 % (0.0-10.0); %Neutrophils 60.9 % (42.0-75.0); Hematocrit 36.6 % (36.0-47.0); Hemoglobin 11.9 g/dL (12.0-16.0); Mean Corpuscular Hemoglobin 29.1 pg (27.0-31.0); Mean Corpuscular Volume 89.5 fL (78.0-98.0); Platelet Count 219 10x3/uL (130-400); Red Blood Cell (RBC) Count 4.09 mill/uL (4.20-5.40); White Blood Cell (WBC) Count 11.82 10x3/uL (4.8-10.8)
[2025-08-12 21:14] LABS: INR-International Normal Ratio 1.0; PTT 25.2 sec (22.9-36.1); Prothrombin Time 13.6 sec (12.0-14.7)
[2025-08-12 21:16] LABS: ALT (SGPT) 14 U/L (Less than 34); AST (SGOT) 25 U/L (11-34); Albumin 4.2 g/dL (3.1-4.5); Alkaline Phosphatase 152 U/L (40-110); Anion Gap 16 mmol/L (10-20); BUN (Urea Nitrogen) 17 mg/dL (9.8-20.1); Bilirubin, Total 0.3 mg/dL (0.3-1.2); Calc. Creatinine Clearance 0 mL/min (70-130); Calcium 9.8 mg/dL (7.8-10.44); Carbon Dioxide 19 mmol/L (23-31); Chloride 109 mmol/L (98-107); Globulin 2.8 g/dL (2.4-3.5); Glucose 114 mg/dL (83-110); Lipase 21 U/L (8-78); Potassium 3.7 mmol/L (3.5-5.1); Sodium 140 mmol/L (136-145)
[2025-08-12] MEDS ORDERED: diphenhydrAMINE 50 MG/ML VIAL ONE (21:44)
[2025-08-12] MEDS ORDERED: Metoclopramide HCl 10 MG (2 mL) VIAL ONE (21:44)
[2025-08-12] MEDS ORDERED: Dextrose 50% Abboject 50 ML SYRINGE SLOW IVP PRN (22:58)
[2025-08-12] MEDS ORDERED: hydrALAZINE 20 MG/ML VIAL SLOW IVP PRN (22:58)
[2025-08-12] MEDS ORDERED: Glucagon 1 MG/ML KIT IM PRN (22:58)
[2025-08-13 02:57] VITALS: BMI 31.6
[2025-08-13] MEDS: Ondansetron PF 4 MG/2 ML Vial IVP PRN (03:06)
[2025-08-13 03:30] LABS: #Basophils 0.07 10x3/uL (0.0-0.2); #Eosinophils 0.26 10x3/uL (0.0-0.7); #Monocytes 0.77 10x3/uL (0.11-0.59); #Neutrophils 5.15 10x3/uL (1.40-6.50); %Basophils 0.8 % (0.0-1.0); %Eosinophils 2.9 % (0.0-10.0); %Lymphocytes 29.3 % (21.0-51.0); %Monocytes 8.7 % (0.0-10.0); %Neutrophils 58.1 % (42.0-75.0); Hematocrit 33.2 % (36.0-47.0); Hemoglobin 10.8 g/dL (12.0-16.0); Mean Corpuscular Hemoglobin 29.0 pg (27.0-31.0); Mean Corpuscular Volume 89.2 fL (78.0-98.0); Platelet Count 200 10x3/uL (130-400); Red Blood Cell (RBC) Count 3.72 mill/uL (4.20-5.40); White Blood Cell (WBC) Count 8.87 10x3/uL (4.8-10.8)
[2025-08-13 03:45] LABS: Anion Gap 14 mmol/L (10-20); BUN (Urea Nitrogen) 20 mg/dL (9.8-20.1); Calc. Creatinine Clearance 39 mL/min (70-130); Calcium 9.2 mg/dL (7.8-10.44); Carbon Dioxide 20 mmol/L (23-31); Chloride 110 mmol/L (98-107); Glucose 107 mg/dL (83-110); Potassium 3.7 mmol/L (3.5-5.1); Sodium 140 mmol/L (136-145)
[2025-08-13] MEDS: Metoclopramide HCl 10 MG (2 mL) VIAL IVP SCH (06:45)
[2025-08-13 07:57] LABS: Magnesium 1.9 mg/dL (1.6-2.6)
[2025-08-13] MEDS: Fleet Saline Enema 133 ML BOT PR SCH (10:29)
[2025-08-13 14:28] VITALS: BMI 31.6
[2025-08-14 04:31] LABS: #Basophils 0.04 10x3/uL (0.0-0.2); #Eosinophils 0.23 10x3/uL (0.0-0.7); #Monocytes 0.54 10x3/uL (0.11-0.59); #Neutrophils 3.44 10x3/uL (1.40-6.50); %Basophils 0.6 % (0.0-1.0); %Eosinophils 3.5 % (0.0-10.0); %Lymphocytes 34.3 % (21.0-51.0); %Monocytes 8.3 % (0.0-10.0); %Neutrophils 53.1 % (42.0-75.0); Hematocrit 28.2 % (36.0-47.0); Hemoglobin 9.1 g/dL (12.0-16.0); Mean Corpuscular Hemoglobin 28.5 pg (27.0-31.0); Mean Corpuscular Volume 88.4 fL (78.0-98.0); Platelet Count 166 10x3/uL (130-400); Red Blood Cell (RBC) Count 3.19 mill/uL (4.20-5.40); White Blood Cell (WBC) Count 6.48 10x3/uL (4.8-10.8)
[2025-08-14 04:45] LABS: Anion Gap 15 mmol/L (10-20); BUN (Urea Nitrogen) 17 mg/dL (9.8-20.1); Calc. Creatinine Clearance 49 mL/min (70-130); Calcium 8.4 mg/dL (7.8-10.44); Carbon Dioxide 22 mmol/L (23-31); Chloride 111 mmol/L (98-107); Glucose 86 mg/dL (83-110); Potassium 3.1 mmol/L (3.5-5.1); Sodium 145 mmol/L (136-145)
[2025-08-14] MEDS ORDERED: PHOS-NAK 1 PKT PACK PO PRN (08:00)
[2025-08-14] MEDS ORDERED: Potassium Chloride 20 MEQ in Premix 1 BAG IVPB PRN (08:00)
[2025-08-14 09:41] LABS: Magnesium 1.6 mg/dL (1.6-2.6)
[2025-08-14] MEDS: lamoTRIgine 100 MG TAB PO SCH (10:16)
[2025-08-14] MEDS: Enoxaparin 40 MG (0.4 mL) SYRINGE SC SCH (10:16)
[2025-08-14] MEDS: Magnesium 2 GM/50 ML(in water) 2 GM in Premix 1 BAG IVPB PRN (12:25)
[2025-08-14 14:39] LABS: Potassium 4.1 mmol/L (3.5-5.1)
[2025-08-14 15:40] VITALS: TEMP 97.8
[2025-08-14] MEDS: HYDROcodone/Acetaminophen 5/325 mg Tablet PO SCH (16:34)
[2025-08-14 18:04] VITALS: BP 146/81
[2025-08-14] MEDS ORDERED: Methocarbamol 500 MG TAB PO SCH (21:00)
[2025-08-14] MEDS ORDERED: Transdermal Patch Removal TOP SCH (21:00)
[2025-08-15] MEDS ORDERED: Non-Formulary Item 1 EACH (Lansoprazole [Lansoprazole] 30 MG Capsule.Dr) PO SCH (09:00)
[2025-08-15] MEDS ORDERED: Pantoprazole 40 MG DR.TAB PO SCH (09:00)
[2025-08-15] MEDS ORDERED: lamoTRIgine 100 MG TAB PO SCH (09:00)
== END 2025-08-14 18:37 | disposition home or self-care (01) | DRG 389 ==
LOC: ERS 18:42 → ERHOLD 23:01 → PCU 08-13 02:05
PROVIDERS: ADMIT Surgery; ATTEND Surgery
PROC: 0D9670Z Drainage of Stomach with Drainage Device, Via Natural or Artificial Opening (ICD-10-PCS; principal; 2025-08-12)
PROC: 0T9B70Z Drainage of Bladder with Drainage Device, Via Natural or Artificial Opening (ICD-10-PCS; 2025-08-12)
DX: K56.7 Ileus, unspecified (principal); I13.0 Hypertensive heart and chronic kidney disease with heart failure and stage 1 through stage 4 chronic kidney disease, or unspecified chronic kidney disease; E03.9 Hypothyroidism, unspecified; N18.30 Chronic kidney disease, stage 3 unspecified; J44.9 Chronic obstructive pulmonary disease, unspecified; E78.5 Hyperlipidemia, unspecified; K21.9 Gastro-esophageal reflux disease without esophagitis; Z96.611 Presence of right artificial shoulder joint; Z96.653 Presence of artificial knee joint, bilateral; F41.9 Anxiety disorder, unspecified; F31.9 Bipolar disorder, unspecified; R19.7 Diarrhea, unspecified; N31.9 Neuromuscular dysfunction of bladder, unspecified; F43.10 Post-traumatic stress disorder, unspecified; Z98.84 Bariatric surgery status; Z90.49 Acquired absence of other specified parts of digestive tract; Z95.0 Presence of cardiac pacemaker; Z98.890 Other specified postprocedural states; Z86.73 Personal history of transient ischemic attack (TIA), and cerebral infarction without residual deficits; Z88.8 Allergy status to other drugs, medicaments and biological substances; Z91.048 Other nonmedicinal substance allergy status
CPT/HCPCS: 36415; 36416; 43752; 71045; 74018; 74176; 80048; 80053; 83605; 83690; 83735; 84100; 85025; 85610; 85730; 87324; 87449; 94640; 96365; 96367; 96375; 96376; J1200; J1650; J2270; J2405; J2543; J2765; J3010; J3475; J7120